=== PATIENT | male | born 1935 | race Caucasian/White ===

== ENCOUNTER 2016-03-04 14:44 | Emergency (ER) | payer OTHER ==
[2016-03-04 14:57] VITALS: RESP 14; TEMP 97.9
--- NOTE | 2016-03-04 15:06 | EDPHY ---
HPI/HX/ROS/PE/MDM Narrative: Chief complaint: Right foot wound VAC malfunction HPI: 80-year-old male with a add right foot wound debridement on the of this month by Dr. Bower with a wound VAC in place. Patient states that his son changed his socks this morning and there was some bleeding around the site. He is then noted a malfunction by the wound VAC. He believes that the a dressing may have been dislodged. Denies any increased pain. No fevers or chills. No change in redness. Is otherwise without complaint. ROS: 10 point Review of Systems is negative except as noted in the HPI. Physical exam: General: Awake, alert, no acute distress Lower extremity: He has no calf tenderness, calves are soft, bilateral feet are mildly dusky in appearance at which is baseline. Right foot plantar wound VAC dressing is in place. The wound is mildly blood cells. There is serosanguineous fluid in the wound VAC tubing. There is no significant surrounding erythema. Patient states he appearance has not changed since the last few days. Skin: No rash ED Course: Right foot dressing taken down. Has no infection the apparent. He a wet-to- dry dressing was put in place. He will be discharged with referral to the wound Care Center tomorrow for re-application of the wound VAC and further evaluation. General Time Seen by Provider: 03/04/16 14:56 Initial Vital Signs: Initial Vital Signs Temperature (C) 36.6 C 03/04/16 14:55 Heart Rate 94 03/04/16 14:55 Respiratory Rate 14 03/04/16 14:55 Blood Pressure 108/68 03/04/16 14:55 O2 Sat (%) 94 03/04/16 14:55 O2 Delivery Mode Room Air Allergies/Adverse Reactions: No Known Allergies Allergy (Verified 03/04/16 14:55) Home Medications: Medication Instructions Recorded Atorvastatin Calcium [Lipitor 20 20 mg PO HS 02/08/15 mg (*)] Digoxin [Lanoxin 0.125 mg] 0.125 mg PO EVERY OTHER DAY 02/08/15 Diltiazem HCl 90 mg PO DAILY 02/08/15 Lisinopril [Zestril 5 mg (*)] 5 mg PO DAILY 02/08/15 metFORMIN HCL [Glucophage 500 mg 500 mg PO DAILY@08 PRN 02/17/15 (*)] Acetaminophen [Tylenol 325mg (*)] 650 mg PO Q4 PRN #0 tab 02/19/15 Aspirin [Aspirin 81mg (*)] 81 mg PO HS #0 tab 02/19/15 Cholecalciferol Vit D3 [Vitamin D3 1,000 units PO BID 11/01/15 (*)] Digoxin [Lanoxin 125 mcg (RX)] 250 mcg PO EVERY OTHER DAY 11/01/15 Metoprolol Succinate Xr [Toprol Xl 50 mg PO DAILY 11/01/15 50 mg (*)] Butler-3 Fatty Acids [Fish Oil 1000 1,000 mg PO BID 11/01/15 mg (*)] Ferrous Sulfate [Ferrous Sulf 325 325 mg PO DAILY #0 tab 01/12/16 MG (*)] Gabapentin [Neurontin 300 MG (*)] 300 mg PO DAILY #0 cap 01/12/16 Insulin Glargine [Lantus 100 25 units SC DAILY #0 ml 01/12/16 UNITS/ML (*)] Insulin Lispro [humALOG LISPRO 100 0 unit SC ACHS #0 unit 01/12/16 units/ml (*)] Piperacillin Sodium/Tazobactam 3.375 gm IV Q6 #0 vial 01/12/16 [Zosyn 3.375 Gram Vial] Warfarin Sodium [Coumadin 5MG (*)] 5 mg PO DAILY AT 4PM #0 tab 01/12/16 oxyCODONE IR [Oxycodone Ir (*)] 5 - 10 mg PO Q4 PRN #0 tab 01/12/16 Departure - Departure Disposition: Home, Routine, Self-Care Clinical Impression: Open wound of right foot Condition: Good Instructions: Chronic Wound Care (ED) Additional Instructions: Follow up with the wound care center tomorrow for re-evaluation. Return to the emergency depart for increasing bleeding, fever, chills, spreading redness, or pain. Referrals: Angel Medrano MD [Primary Care Provider] - As per Instructions
[2016-03-04 16:44] VITALS: BP 109/78; PULSE 70; O2SAT 96
== END 2016-03-04 16:42 | disposition home or self-care (01) ==
LOC: EDUNIT#
DX: S91.301A Unspecified open wound, right foot, initial encounter (principal); Z79.01 Long term (current) use of anticoagulants; Z79.4 Long term (current) use of insulin; Z79.82 Long term (current) use of aspirin; X58.XXXA Exposure to other specified factors, initial encounter

== ENCOUNTER 2016-03-07 13:29 | Inpatient (IN) | payer OTHER ==
--- NOTE | 2016-03-07 14:04 | EDPHY ---
H & P Stated Complaint: R foot pain, 9 month hx of delayed healing break Time Seen by Provider: 03/07/16 13:42 HPI/ROS: CHIEF COMPLAINT: Inability to care for self HISTORY OF PRESENT ILLNESS: 80-year-old male with multiple comorbidities including diabetes, atrial fibrillation, chronic kidney disease, coronary artery disease, hypertension, hyperlipidemia, ongoing diabetic foot infection for which he is being followed by Dr. Pat De Los Santos and wound services, has a VAC dressing in place, in the ER via private vehicle over patient's and family's concerns over his ability to care for himself. He was seen in the emergency department 3 days ago after his VAC dressing fell off and was replaced. Case management was alert at that time that there were concerns about the family's ability to care for him and the patient's ability to care for himself and the possibility of transitioning the patient to a residential facility. The patient denies: Fever, chills, nausea, vomiting, chest pain, back pain, abdominal pain REVIEW OF SYSTEMS: A ten point review of systems was performed and is negative with the exception of the items mentioned in the HPI PAST MEDICAL & SURGICAL HISTORY: Diabetes. Atrial fibrillation. Chronic kidney disease. Coronary artery disease. Hypertension. Hyperlipidemia. Ongoing diabetic foot infection. SOCIAL HISTORY: Lives with his demented and his 2 children PHYSICAL EXAM (Prior to examination, patient consented to physical exam, hands were washed and my usual and customary physical exam procedures followed) 1) GENERAL: Well-developed, well-nourished, alert and oriented. Appears nontoxic . Answering questions appropriately. 2) HEAD: Normocephalic, atraumatic 3) HEENT: Pupils equal, round, reactive to light bilaterally. 4) NECK: Full range of motion, no meningeal signs. 5) LUNGS: Clear auscultation bilaterally, no wheezes, no rhonchi, no retractions. 6) HEART: Regular rate and rhythm, no murmur, no heave, no gallop. 7) ABDOMEN: No guarding, no rebound, no focal tenderness, 8) MUSCULOSKELETAL: right foot VAC dressing in place with good suction, no acute findings. 9) BACK: No CVA tenderness 10) SKIN: No rash, no petechiae. 11) Psychiatric: Patient is oriented X 3, there is no agitation. DIFFERENTIAL DIAGNOSIS: in no particular include but limited to failure to thrive, cellulitis, diabetic foot infection - Personal History Current Tetanus/Diphtheria Vaccine: Yes Current Tetanus Diphtheria and Acellular Pertussis (TDAP): Yes Tetanus Vaccine Date: 4-5 YEARS AGO - Medical/Surgical History Hx Asthma: No Hx Chronic Respiratory Disease: No Hx Diabetes: Yes Hx Cardiac Disease: Yes Hx Renal Disease: No Hx Cirrhosis: No Hx Alcoholism: No Hx HIV/AIDS: No Hx Splenectomy or Spleen Trauma: No Other PMH: HTN, CVA slight right sided weakness, IDDM, carotid endarterectomy, cholesterol, PPM, Afib, CAD, Peripheral neuropathy, falls, loss of balance and uses cane, [place], 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, - Social History Smoking Status: Former smoker Constitutional: Initial Vital Signs Temperature (C) 36.5 C 03/07/16 13:38 Heart Rate 75 03/07/16 13:38 Respiratory Rate 15 03/07/16 13:38 Blood Pressure 107/77 03/07/16 13:38 O2 Sat (%) 94 03/07/16 13:38 O2 Delivery Mode Room Air Allergies/Adverse Reactions: No Known Allergies Allergy (Verified 03/07/16 13:37) Home Medications: Medication Instructions Recorded Atorvastatin Calcium [Lipitor 20 20 mg PO HS 02/08/15 mg (*)] Digoxin [Lanoxin 0.125 mg] 0.125 mg PO EVERY OTHER DAY 02/08/15 Acetaminophen [Tylenol 325mg (*)] 650 mg PO Q4 PRN #0 tab 02/19/15 Aspirin [Aspirin 81mg (*)] 81 mg PO HS #0 tab 02/19/15 Cholecalciferol Vit D3 [Vitamin D3 1,000 units PO BID 11/01/15 (*)] Digoxin [Lanoxin 125 mcg (RX)] 250 mcg PO EVERY OTHER DAY 11/01/15 Metoprolol Succinate Xr [Toprol Xl 50 mg PO DAILY 11/01/15 50 mg (*)] St[place]al-3 Fatty Acids [Fish Oil 1000 1,000 mg PO BID 11/01/15 mg (*)] Ferrous Sulfate [Ferrous Sulf 325 325 mg PO DAILY #0 tab 01/12/16 MG (*)] Insulin Glargine [Lantus 100 25 units SC DAILY #0 ml 12/01/16 UNITS/ML (*)] Insulin Lispro [humALOG LISPRO 100 0 unit SC ACHS #0 unit 01/12/16 units/ml (*)] Diltiazem Sr [Cardizem Sr] 1 cap PO DAILY 03/07/16 Gabapentin [Gabapentin] 200 mg PO BIDMEAL 03/07/16 Gabapentin [Neurontin 300 MG (*)] 300 mg PO HS 03/07/16 Lisinopril [Zestril 2.5 mg (*)] 2.5 mg PO DAILY 03/07/16 Metformin HCl [Metformin HCl ER] 500 mg PO DAILY PRN 03/07/16 WARFARIN SODIUM [WARFARIN SODIUM] 6 mg PO HS 03/07/16 Medical Decision Making ED Course/Re-evaluation: 2:10 p.m.: Discussed case Dr. Jalen Viera in ER. Old medical records reviewed. Case management is consulting as well as the patient family expressed concerns over their ability to care for the patient his ability to care for himself in a home where he has to care for his demented as well. He has no complaints of acute pain, no flu-like symptoms, no fever no chills. 2:20 p.m.: Phone consultation with hospitalist Latoya, admit to Dr. Onofre. I will contact Dr. Pat De Los Santos as well 2:28 p.m.: Phone consultation with Dr. Pat De Los Santos who will consult 3:27 p.m.: Patient's chemistry shows a potassium of 6.0, sodium of 124. In speaking with the nurse this was a challenging blood draw And a pediatric tube was used. I recommended rechecking her chemistry prior to initiating therapy for his hyperkalemia. 4:38 pm: Spoke with radiologist Dr. Victor Manuel Melendez to look to the patient's right foot x-ray and was noted to have subcutaneous air distally and there concerns over possible necrotizing fasciitis. I have paged Dr. Pat De Los Santos at this time 4:42 p.m.: Spoke with Dr. Pat De Los Santos to convey these results who will evaluate patient 5:01 p.m.: Patient's laboratory studies were redrawn . Spoke with the nurse and was informed that the 2nd blood draw was challenging as well and may have been accidentally diluted. I reviewed these results which show multiple aberrancies not consistent with the 1st blood draw in such a short time period without intervention. At this time I will hold on treating any specific laboratory abnormalities as the complete reliability of these chemistry values is not completely known at this time. Discussed this with Dr Taylor in ER. - Data Points Laboratory Results: Laboratory Results 03/07/16 14:50 03/07/16 14:50 03/07/16 14:50 WBC 19.37 H 10^3/uL (3.80-9.50) RBC 4.65 10^6/uL (4.40-6.38) Hgb 12.6 L g/dL (13.7-17.5) Hct 37.5 L % (40.0-51.0) MCV 80.6 L fL (81.5-99.8) MCH 27.1 L pg (27.9-34.1) MCHC 33.6 g/dL (32.4-36.7) RDW 14.6 % (11.5-15.2) Plt Count 245 10^3/uL (150-400) MPV 10.4 fL (8.7-11.7) Neut % (Auto) Not Reported Lymph % (Auto) Not Reported [place] % (Auto) Not Reported Eos % (Auto) Not Reported Baso % (Auto) Not Reported Nucleat RBC Rel Count 0.0 % (0.0-0.2) Absolute Neuts (auto) Not Reported Absolute Lymphs (auto) Not Reported Absolute Monos (auto) Not Reported Absolute Eos (auto) Not Reported Absolute Basos (auto) Not Reported Absolute Nucleated RBC 0.00 10^3/uL (0-0.01) Immature Gran % Not Reported Seg Neutrophils % 79 % Band Neutrophils % 8 % Lymphocytes % 7 % Monocytes % 6 % Immature Gran # Not Reported Absolute Seg Neuts 15.30 H 10^/uL (1.70-6.50) Absolute Band Neuts 1.55 H 10^3/uL (0.00-0.70) Absolute Lymphocytes 1.36 10^3/uL (1.00-3.00) Absolute Monocytes 1.16 H 10^3/uL (0.30-0.80) RBC/WBC/PLT Morphology NORMAL (NORMAL) Toxic Granulation PRESENT H Platelet Estimate ADEQUATE (ADEQ) Sodium 124 L mEq/L (134-144) Potassium 6.0 H mEq/L (3.5-5.2) Chloride 91 L mEq/L (97-110) Carbon Dioxide 24 mEq/l (22-31) Anion Gap 9 mEq/L (8-16) BUN 33 H mg/dL (7-23) Creatinine 1.3 mg/dL (0.7-1.3) Estimated GFR 53 Glucose 244 H mg/dL (70-100) Calcium 8.2 L mg/dL (8.5-10.4) Specimen Hemolysis 103 Medications Given: Discontinued Medications Sodium Chloride (Ns) 500 mls @ 1,500 mls/hr IV ONCE ONE Stop: 03/07/16 15:12 Last Admin: 03/07/16 14:54 Dose: 500 mls Departure - Departure Disposition: [facility] Inpatient Acute Clinical Impression: Right foot infection Failure to thrive Qualifiers: Failure to thrive age range: in adult Qualifier Code: (R62.7) Adult failure to thrive
[2016-03-07] MEDS ORDERED: ONDANSETRON DISINTEGRATING 4 MG TAB PO PRN (14:43)
[2016-03-07] MEDS ORDERED: ONDANSETRON 4 MG/2 ML VIAL IVP PRN (14:43)
[2016-03-07] MEDS ORDERED: ACETAMINOPHEN 325 MG TAB PO PRN ×2 (14:43→16:21)
[2016-03-07] MEDS ORDERED: NS 500 ML IV ONE (14:53)
[2016-03-07 14:59] LABS: ADD DIFF? YES; ADD MORPH? NO; ADD SCAN? NO; ATYPICAL LYMPHOCYTE FLAG 30 (0-99); FRAGMENT RBC FLAG 0 (0-99); HEMATOCRIT 37.5 % (40.0-51.0); HEMOGLOBIN 12.6 g/dL (13.7-17.5); LEFT SHIFT FLG 30 (0-99); LIPEMIA HEMOLYSIS FLAG 80 (0-99); MEAN CELL HEMOGLOBIN 27.1 pg (27.9-34.1); MEAN CELL HEMOGLOBIN CONCENTR. 33.6 g/dL (32.4-36.7); MEAN CELL VOLUME 80.6 fL (81.5-99.8); MEAN PLATELET VOLUME 10.4 fL (8.7-11.7); PLATELET CLUMPS FLAG 70 (0-99); PLATELET COUNT 245 10^3/uL (150-400); RED BLOOD CELL COUNT 4.65 10^6/uL (4.40-6.38); RED CELL DISTRIBUTION WIDTH 14.6 % (11.5-15.2)
--- NOTE | 2016-03-07 15:07 | CPEKG ---
Heart Rate: 93 RR Interval: 645 QRSD Interval: 100 QT Interval: 384 QTC Interval: 478 QRS [place]: 46 EKG Severity - ABNORMAL ECG - EKG Impression: AFIB/FLUTTER EKG Impression: LOW VOLTAGE IN FRONTAL LEADS EKG Impression: NONSPECIFIC REPOL ABNORMALITY, DIFFUSE LEADS EKG Impression: PROLONGED QT INTERVAL Electronically Signed By: Orlando Panchal 09-Mar-2016 19:32:33
[2016-03-07 15:17] LABS: ANION GAP 9 mEq/L (8-16); CALCIUM 8.2 mg/dL (8.5-10.4); CARBON DIOXIDE 24 mEq/l (22-31); CHLORIDE 91 mEq/L (97-110); CREATININE 1.3 mg/dL (0.7-1.3); GLOMERULAR FILTRATION RATE 53; GLUCOSE 244 mg/dL (70-100); SODIUM 124 mEq/L (134-144); SPECIMEN HEMOLYSIS 103
[2016-03-07 15:34] LABS: TOXIC GRANULATION PRESENT
[2016-03-07 15:37] LABS: PLATELET ESTIMATE ADEQUATE (ADEQ)
[2016-03-07 16:33] LABS: SPECIMEN HEMOLYSIS 167
--- NOTE | 2016-03-07 17:00 | DX ---
Right foot, 4 views. March 07, 2016 History: Cellulitis. Atherosclerosis. Comparison examination: December 28, 2015. From prior study, there has been development of dorsal subcutaneous emphysema and soft tissue swellin g, suggesting the possibility of necrotizing fasciitis versus iatrogenic etiology. Additionally, prog ressive joint space narrowing of the first metatarsophalangeal joint is noted, potentially related to septic arthritis. An obliquely oriented fracture extends through the lateral aspect of the proximal phalanx of the great toe. Progressive bone resorption the first metatarsal head medially is compatibl e with osteomyelitis. Extensive diabetic vascular calcifications are present. No other fracture identified. Impression: 1. Interval development of dorsal subcutaneous air over the right forefoot and midfoot, necrotizing f asciitis versus iatrogenic etiology. Associated dorsal soft tissue swelling. 2. Progressive joint space narrowing with pathologic fracture at the first metatarsophalangeal joint, possible septic arthritis. There is also progressive bone resorption of the first metatarsal tarsal head medially. Results conveyed to Dr. Pat Bower and Rui Wright PA-C.
--- NOTE | 2016-03-07 17:03 | GHP ---
[f rep st] HISTORY AND PHYSICAL DATE OF ADMISSION: 03/07/2016 CHIEF COMPLAINT: Inability to care for himself. HISTORY OF PRESENT ILLNESS: The patient is a 80-year-old male who has chronic multiple medical problems presented to the emergency room today with the inability to care for himself and being concerned about his medical problems. The patient suffers from ongoing diabetic foot infection which he is followed by Dr. De Los Santos in the outpatient setting as well as wound services and VAC wound dressing. He denies any fevers. Denies any chills. Denies any nausea, vomiting or diarrhea. Denies any chest pain, dyspnea or shortness of breath. He does complain of some weakness and decreased appetite. PAST MEDICAL HISTORY: 1. Diabetic foot infection with gangrene. 2. Hyponatremia. 3. Sepsis. 4. Leukocytosis. 5. Normocytic anemia. 6. Diabetes. 7. Persistent atrial fibrillation. 8. Acute on chronic kidney injury. 9. Hypertension. 10. Hyperlipidemia. 11. Coronary artery disease. 12. Congestive heart failure. 13. History of CVA. PAST SURGICAL INTERVENTION: 1. Coronary stenting. 2. Multiple surgical interventions for his diabetic foot infection. REVIEW OF SYSTEMS: Comprehensive review of systems is negative other than noted in the HPI. SOCIAL HISTORY: The patient lives with his who is demented at baseline. He has 2 children. He denies any tobacco. He states that he used to be a former smoker. He is a retired [employer] employee. He rarely drinks any alcohol. FAMILY HISTORY: Not pertinent for any positives. PHYSICAL EXAMINATION: GENERAL: The patient is nourished, alert and oriented. VITAL SIGNS: Afebrile at 36.5, pulse is 75, respiratory rate is 15, blood pressure is 135/80, saturating 97% on room air. HEENT: Normocephalic, atraumatic. Mucosal membranes are moist. Pupils equal, round, reactive to light. LUNGS: Clear to auscultation bilaterally with no rhonchi or wheezes noted. CARDIOVASCULAR: No murmur. Noting irregular rate and rhythm. ABDOMEN : Bowel sounds are positive, soft. There is no guarding or rigidity noted. MUSCULOSKELETAL: There is a right foot wound VAC dressing in place with appears good suction. EXTREMITIES: Are otherwise within normal limits. No clubbing or cyanosis noted. SKIN: Without rashes or lesions identified. ALLERGIES: None. HOME MEDICATIONS: Have not been completed by the [facility] pharmacy yet; however , after his last admission he was on Tylenol, aspirin, Lipitor, vitamin D, digoxin, diltiazem, iron, Neurontin, Lantus, lisinopril, Toprol-XL, fish oil, Zosyn, Coumadin, Glucophage, oxycodone IR. LABORATORY EVALUATION: White count is 19.3, hemoglobin 12.6, hematocrit of 37.5. Sodium is 124 with a potassium of 6 and a chloride of 91. BUN is 33, glucose is 244 and calcium is 8.2. RADIOLOGICAL STUDIES: Foot x-ray is pending at the time of this dictation. EKG notes abnormal EKG with atrial fibrillation. ASSESSMENT AND PLAN: The patient is a 80-year-old male who presented to the emergency room by his family for failure to thrive. He is being admitted and treated for: 1. Failure to thrive. We will continue supportive management with therapies during this hospitalization and potentially find the patient retirement facility assistance and help if appropriate. 2. Hyperkalemia. The patient has repeat laboratory evaluations pending at the time of this dictation. I am told that the blood draw was difficult and a pediatric tube was used. There may be some hemolysis happening. We will await further results and initiate hyperkalemia therapy if indicated. 3. History of wet gangrene with wound VAC. The patient has been followed by Infectious Disease as well as Dr. De Los Santos in the outpatient setting. We will continue supportive inpatient management of his wound VAC with further recommendations to be made. Dr. De Los Santos has been notified of the patient's admission. 4. Hyponatremia. This is a chronic ongoing problem for the patient; however, he does appear to be dehydrated at the time of admission. 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 We will hydrate him intermittently during this hospital course and follow along with his sodium level. Again, we are waiting for repeat evaluation during this dictation. 5. Leukocytosis. This is increased since his last disposition. We will continue to follow this and evaluate for further infectious process. 6. Anemia. I suspect his laboratory evaluations are lower than representing, as the patient does appear to be dehydrated. We will recheck his labs in the morning and further action will be taken as needed. 7. Acute on chronic kidney disease. Again, we will hydrate the patient and monitor his renal function during this hospital course. 8. History of chronic systolic heart failure. This appears to be stable with no signs of exacerbation at the time of admission. 9. History of atrial fibrillation. He does have a PPM in place. Anticoagulation has not been evaluated. We will order laboratory evaluation to further evaluate his chronic anticoagulation. He is currently rate controlled and we will continue his home medications as soon as they are evaluated and reconciled by [facility] pharmacist. 10. History of hypertension. Again, the patient is normotensive at this time. Further decisions will be made during his hospital course. 11. Diabetes mellitus type 2. We will initiate sliding scale insulin. The patient is normally on metformin. DISPOSITION: The patient is being admitted to inpatient status as I anticipate he will require greater than 48 hours to sort out all of his medical problems and establish further needs. I will discuss the patient's care with Dr. Jaime Onofre. Further action will be taken as needed during the patient's hospitalization. /[id number]/MODL MTDD
--- NOTE | 2016-03-07 17:36 | PCMIDPN ---
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 s/p 6 weeks Zosyn, stopped 2015. Today wound looks more filled than the last exam but now there is surrounding cellulitis with associated crepitus concerning for necrotizing infection. --will start a bit broader coverage with vancomycin and ertapenem to include risk for ESBL and MRSA --patient will need surgical intervention, likely BKA, but patient needs medical stabilization prior --obtain blood cultures to rule out bacteremia --wound cultures not likely helpful at this point as patient is likely to have BKA Case discussed with Dr. Bower and Dr. Onofre X-ray of the right foot was personally reviewed by me which shows calcified vessels, and air on the dorsum of the foot Subjective: 80-year-old male well known to me with history of diabetes, peripheral vascular disease who I helped manage severe diabetic right foot infection status post extensive debridement approximately 2 months ago. Patient with exposed bone in the wound postoperatively and patient was treated with 6 weeks of IV antibiotics for osteomyelitis. Although the wound has continued to improve, the last day patient with increased malaise, chills and today was unable to get out of bed therefore his encouraged him to present to the emergency room. Denies respiratory and GI symptoms. Patient has minimal symptoms associated with his right foot but previously has been fairly asymptomatic due to severe peripheral neuropathy. Poor p.o. intake Objective: Vital Signs Temp Pulse Resp BP Pulse Ox 36.5 C 89 16 135/80 H 97 03/07/16 13:38 03/07/16 15:48 03/07/16 15:48 03/07/16 15:48 03/07/16 15:48 Laboratory Results 03/07/16 15:40 - Physical Exam General Appearance: alert, thin, non-toxic EENT: pale conjunctiva, dry mucous membranes, poor dentition, No scleral icterus Neck: supple Cardiac/Chest: regular rate, rhythm Extremities: erythema (Large open wound), other (right medial wound on foot approx 10 x 5.0 x 3 cm filled in with granulation tissue but wound is surrounded by erythema and significant crepitus is detected on the dorsum of the foot. No tenderness to palpation) Abdomen: non-tender, soft Skin: warm/dry, pallor, No rash Neuro/Psych: alert, normal mood/affect, oriented x 3, No motor weakness - Time Spent With Patient Time Spent with Patient: greater than 35 minutes Time Spent with Patient: Greater than 35 minutes spent on this patients care, greater than 50% of time spent counseling, educating, and coordinating care regarding the above mentioned plan. ICD10 Worksheet Patient Problems: Problems Problem Status Diagnosed CAD (coronary artery disease) Acute CVA (cerebral vascular accident) Acute Diabetes Acute Failure to thrive Acute Hypertension Acute Right foot infection Acute Acute kidney injury Acute Congestive heart failure (CHF) Acute Hyperkalemia Acute Hyponatremia Acute Malaise and fatigue Acute Severe sepsis Acute Supratherapeutic INR Acute Transient hypotension Acute
[2016-03-07 18:36] LABS: INR 2.69 (0.83-1.16); PROTIME(PATIENT) 28.9 SEC (12.0-15.0)
[2016-03-07 18:37] LABS: APTT 47.2 SEC (23.0-38.0)
[2016-03-07] MEDS ORDERED: WARFARIN SODIUM 3 MG TAB PO SCH (19:30)
[2016-03-07] MEDS: ERTAPENEM 1 GM in NS 100 ML IV SCH (19:42)
[2016-03-07] MEDS: VANCOMYCIN HCL/NORMAL SALINE 250 ML IV SCH (20:15)
[2016-03-07] MEDS: ASPIRIN 81 MG CHEWABLE TAB PO SCH (21:01)
[2016-03-07] MEDS: GABAPENTIN 100 MG CAP PO SCH (21:01)
[2016-03-07] MEDS: OMEGA-3 FATTY ACIDS 1,000 MG CAP PO SCH (21:01)
[2016-03-07] MEDS: ATORVASTATIN CALCIUM 20 MG TAB PO SCH (21:01)
[2016-03-07] MEDS: GABAPENTIN 300 MG CAP PO SCH (21:01)
[2016-03-07] MEDS: CHOLECALCIFEROL VIT D3 1,000 UNITS TAB PO SCH (21:01)
[2016-03-07 21:05] LABS: ALBUMIN 1.9 g/dL (3.5-5.0); ANION GAP 6 mEq/L (8-16); CALCIUM 7.5 mg/dL (8.5-10.4); CARBON DIOXIDE 24 mEq/l (22-31); CHLORIDE 95 mEq/L (97-110); CREATININE 1.2 mg/dL (0.7-1.3); GLOMERULAR FILTRATION RATE 59; GLUCOSE 208 mg/dL (70-100); MAGNESIUM 1.6 mg/dL (1.6-2.3); POTASSIUM 5.2 mEq/L (3.5-5.2); SODIUM 125 mEq/L (134-144)
--- NOTE | 2016-03-08 03:50 | GCON ---
[f rep st] CONSULTATION DATE OF CONSULTATION: 03/07/2016 CHIEF COMPLAINT: Failure to thrive. Right diabetic foot ulcer. HISTORY OF PRESENT ILLNESS: The patient is a 80-year-old man who is status post debridement of skin and soft tissue to the level of the fascia in the operating room by Dr. De Los Santos. At the time of surger y, the wound measured 15 x 5 x 3 cm on the medial aspect of his right foot. The wound tunneled anter iorly to the plantar fascia. He was treated with wound VAC therapy. During his previous hospital ad mission, he underwent angioplasty to improve peripheral blood flow. He was discharged home to [facility] and then to home with home care for wound VAC changes. [facility] with a chief complaint of unable to care for himself, weakness, and falls. He denies any worsening symptoms with the wound including pain, redness, fevers, chills, or difficulty with VAC changes. Hi s daughter, however, reports that he has fallen several times since returning home. PAST MEDICAL HISTORY: AFib, CAD, CHF, CVA, type 2 diabetes, hypertension, hyperlipidemia, chronic ki dney disease, peripheral vascular disease, carotid artery disease. PAST SURGICAL HISTORY: Stent placement, operative debridement as mentioned above. ALLERGIES: No known drug allergies. SOCIAL HISTORY: He is . His suffers from Alzheimer's. His daughter recently moved here from [place]. She is involved in his care. He does not use tobacco. He is a former smoker. He r eports rare alcohol use. FAMILY HISTORY: Significant for peripheral vascular disease. PHYSICAL EXAMINATION: GENERAL: Well-developed, well-nourished man, no acute distress. Does not cheli ear acutely ill. HEENT: Normocephalic, atraumatic. No hearing deficits. Pupils equal and round. No scleral icterus. Mucous membranes moist. Glasses. NECK: Trachea midline. LUNGS: No increased work of breathing. CARDIOVASCULAR: Trace peripheral edema left lower extremity. 1+ peripheral omer ma right lower extremity. SKIN: The wound on the medial aspect of the foot surprisingly appears brayan te healthy with granulation tissue in the base. There is a small area of bone exposed in the distal aspect consistent with sesamoid versus first metatarsal head. The plantar fascia is exposed and ther e is a small amount of tunneling laterally on the plantar fascia. There is no purulent drainage. He is nontender to palpation. In addition, there is an unstageable pressure ulcer at the lateral aspec t of his right foot at the base of the fifth metatarsal head, as well as more proximally in the mid m etatarsal region. Again, these are unstageable with overlying eschar. I am concerned, however, that these wounds are very close to bone. His right foot is erythematous and slightly edematous. Unable to palpate DP or PT pulses. PSYCH: Mood and affect normal. IMPRESSION AND PLAN: The patient is a 80-year-old man with peripheral vascular disease and diabetic foot ulcer status post debridement in the operating room by Dr. De Los Santos. [facility], however, I feel that he likely has a component of right lowe r extremity cellulitis. In the ER, he had leukocytosis of 19.37. I discussed with the patient and f david that I am very concerned about his right foot including the development of worsening unstageabl e ulcers to the lateral foot. We will obtain an x-ray to determine if underlying bone may be involve d. He will be admitted to the hospital service with consultation by Infectious Disease for IV antibi otic therapy. He will be additionally seen by Dr. Pat De Los Santos. Case was discussed with Dr. De Los Santos wh o agrees with the above impression and plan. He may require further operative debridement. Unfortun ately, in his case, if there is evidence of bone infection, he may require below-knee amputation. We will continue to follow through this hospital stay. Thank you for the consultation. /[id number]/MODL
[2016-03-08 05:02] LABS: ADD DIFF? YES; ADD MORPH? NO; ADD SCAN? NO; ATYPICAL LYMPHOCYTE FLAG 20 (0-99); FRAGMENT RBC FLAG 0 (0-99); HEMATOCRIT 28.1 % (40.0-51.0); HEMOGLOBIN 9.7 g/dL (13.7-17.5); LEFT SHIFT FLG 30 (0-99); LIPEMIA HEMOLYSIS FLAG 90 (0-99); MEAN CELL HEMOGLOBIN 28.2 pg (27.9-34.1); MEAN CELL HEMOGLOBIN CONCENTR. 34.5 g/dL (32.4-36.7); MEAN CELL VOLUME 81.7 fL (81.5-99.8); PLATELET CLUMPS FLAG 0 (0-99); PLATELET COUNT 205 10^3/uL (150-400); RED BLOOD CELL COUNT 3.44 10^6/uL (4.40-6.38); RED CELL DISTRIBUTION WIDTH 14.6 % (11.5-15.2)
[2016-03-08 05:20] LABS: ALANINE AMINOTRANSFERASE 48 IU/L (21-72); ALBUMIN 1.8 g/dL (3.5-5.0); ALKALINE PHOSPHATASE 196 IU/L (38-126); ANION GAP 6 mEq/L (8-16); ASPARTATE AMINOTRANSFERASE 36 IU/L (17-59); BILIRUBIN,TOTAL 0.9 mg/dL (0.1-1.4); CALCIUM 7.3 mg/dL (8.5-10.4); CARBON DIOXIDE 24 mEq/l (22-31); CHLORIDE 97 mEq/L (97-110); CREATININE 1.1 mg/dL (0.7-1.3); GLOMERULAR FILTRATION RATE > 60; GLUCOSE 164 mg/dL (70-100); SODIUM 127 mEq/L (134-144); TOTAL PROTEIN 5.3 g/dL (6.3-8.2)
[2016-03-08 05:29] LABS: PLATELET ESTIMATE ADEQUATE (ADEQ)
[2016-03-08] MEDS: ERTAPENEM 1 GM in NS 100 ML IV SCH (08:22)
[2016-03-08] MEDS: METOPROLOL SUCCINATE XR 50 MG TAB PO SCH (08:28)
[2016-03-08] MEDS: GABAPENTIN 100 MG CAP PO SCH ×2 (08:28→17:40)
[2016-03-08] MEDS: FERROUS SULFATE 325 MG TAB PO SCH (08:28)
[2016-03-08] MEDS: OMEGA-3 FATTY ACIDS 1,000 MG CAP PO SCH ×2 (08:28→20:30)
[2016-03-08] MEDS: CHOLECALCIFEROL VIT D3 1,000 UNITS TAB PO SCH ×2 (08:29→20:30)
--- NOTE | 2016-03-08 08:29 | SOAPPROG ---
SOAP Progress Note Assessment/Plan: Assessment: 80 yo with severe diabetic foot infection. Was improving. Was readmitted due to failure to thrive. Found to be hyponatremic, hypokalemic, hyperglycemic with WBC in 20s. Air on x ray. Foot is clinically much worse. Air palpable on exam. Leg is warm. Erythema extends to ankle. Purulent drainage and foul odor that was not present last week Booked for OR R BKA likely later today Risks and benefits discussed Will give FFP prior to OR Plan: 03/08/16 08:19 Objective: Vital Signs Temp Pulse Resp BP Pulse Ox 37.4 C 74 16 99/44 L 98 03/08/16 07:32 03/08/16 07:32 03/08/16 07:32 03/08/16 07:32 03/08/16 07:32 Laboratory Results 03/08/16 04:55 03/08/16 04:55 03/07/16 03/08/16 03/09/16 05:59 05:59 05:59 Intake Total 1510 Output Total 230 Balance 1280 PT 28.9 SEC (12.0-15.0) H 03/07/16 18:00 INR 2.69 (0.83-1.16) H 03/07/16 18:00 ICD10 Worksheet Patient Problems: Problems Problem Status Diagnosed CAD (coronary artery disease) Acute CVA (cerebral vascular accident) Acute Diabetes Acute Failure to thrive Acute Hypertension Acute Right foot infection Acute Acute kidney injury Acute Congestive heart failure (CHF) Acute Hyperkalemia Acute Hyponatremia Acute Malaise and fatigue Acute Severe sepsis Acute Supratherapeutic INR Acute Transient hypotension Acute
[2016-03-08] MEDS: DILTIAZEM SR 90 MG CAP PO SCH ×2 (08:30→08:34)
[2016-03-08] MEDS: INSULIN GLARGINE 100 UNITS/ML SYRINGE SC SCH (08:30)
[2016-03-08] MEDS ORDERED: LISINOPRIL 2.5 MG TAB PO SCH (09:00)
[2016-03-08] MEDS ORDERED: ENOXAPARIN 30 MG/0.3 ML SYR SC SCH (09:00)
--- NOTE | 2016-03-08 10:41 | WOCRNPDOC ---
WOCRN Advanced Assessment Note - Skin Integrity Problem, Advanced Assess Bilateral Buttock Incont Assoc Dermatitis Dressing Type: Allevyn Life Integumentary Issue Intervention: Dressing Removed, Lotion/Cream Applied ( dimethicone) Eusebio Wound Tissue: Blanching, Erythema Eusebio Wound Swelling: None Wound Bed Color: [place], Yellow Site Measurement - Head-to-Toe Length X Width X Depth (cm): 0.4x0.4x0.2 Skin Integrity Problem Comment: Small open friction related wound on left buttock, surrounded by scattered mild IAD eusebio anal to sacral. Wound care will not follow. No pressure injuries noted. Please reconsult prn. Dior HUBBARD in room for care.
--- NOTE | 2016-03-08 13:44 | HOSPPROG ---
Hospitalist Progress Note Assessment/Plan: # acute worsening of chronic right lower extremity diabetic foot wound- patient admitted overnight with failure to thrive- leukocytosis of 19 foot x-ray( personally reviewed and interpreted) shows subcutaneous air findings consistent with deep wound blood cultures drawn and no growth today - discussed case with Dr. Bower she will take to the operating room for surgical intervention today - continue IV antibiotic # atrial fibrillation- currently rate controlled in the 70s- INR 2.69 - will give FFP to reverse anticoagulation for operating room - continue home meds- digoxin - check a digoxin level # acute on chronic kidney injury- creatinine 1.3-> 1.1 with IV fluids overnight- oxygen saturations 100% on 2 L # diabetes mellitus- blood sugars 164-244- holding metformin - continue glargine -cover with sliding scale insulin # chronic hyponatremia- sodium 127 this morning - baseline continue to monitor # hyperkalemia- potassium 6 at presentation- improved with IV fluid resuscitation # diet NPO for operating room # prophylaxis- no heparin secondary to the operating room # disposition- greater than 2 midnights as requiring surgical debridement for worsening diabetic foot wound I have discussed the case with Dr. Bower she will treat with FFP prior to OR to reverse patient's INR Subjective: tired Objective: Vital Signs Temp Pulse Resp BP Pulse Ox 37.4 C 76 24 H 89/56 L 100 03/08/16 07:32 03/08/16 12:00 03/08/16 12:00 03/08/16 12:00 03/08/16 12:00 Laboratory Results 03/08/16 04:55 03/08/16 04:55 03/07/16 03/08/16 03/09/16 05:59 05:59 05:59 Intake Total 1510 Output Total 230 Balance 1280 PT 28.9 SEC (12.0-15.0) H 03/07/16 18:00 INR 2.69 (0.83-1.16) H 03/07/16 18:00 - Physical Exam Constitutional: chronically ill appearing Eyes: anicteric sclera Ears, Nose, Mouth, Throat: dry mucous membranes Cardiovascular: systolic murmur, irregularly irregular Respiratory: no respiratory distress, no rales or rhonchi Gastrointestinal: normoactive bowel sounds, soft, non-tender abdomen Genitourinary: no bladder fullness Skin: warm, normal color Musculoskeletal: No asymmetric calves Neurologic: AAOx3 Psychiatric: interacting appropriately, not anxious Lymph, Heme, Immunologic: no cervical LAD ICD10 Worksheet Patient Problems: Problems Problem Status Diagnosed CAD (coronary artery disease) Acute CVA (cerebral vascular accident) Acute Diabetes Acute Failure to thrive Acute Hypertension Acute Right foot infection Acute Acute kidney injury Acute Congestive heart failure (CHF) Acute Hyperkalemia Acute Hyponatremia Acute Malaise and fatigue Acute Severe sepsis Acute Supratherapeutic INR Acute Transient hypotension Acute
[2016-03-08] MEDS ORDERED: D50W 25 GM/50 ML SYR IVP PRN (13:48)
[2016-03-08] MEDS ORDERED: NS 1,000 ML IV SCH (14:00)
--- NOTE | 2016-03-08 14:13 | GCON ---
[f rep st] CONSULTATION CRITICAL CARE CONSULTATION DATE OF CONSULTATION: 03/08/2016 HISTORY OF PRESENT ILLNESS: The patient is a 80-year-old male with a history of diabetes and nonheal ing ulcers of his foot, who has been undergoing occasional debridements and antibiotics, and is unabl e to improve. He underwent recent angioplasty of that lower extremity and was admitted yesterday wit h basically failure to thrive and a nonhealing wound. He was evaluated by Dr. De Los Santos, who has been fo llowing him serially, and saw him just last week, and the wound appears to be getting worse. He is s cheduled for a below-knee amputation today. REVIEW OF SYSTEMS: He was otherwise negative. PAST MEDICAL HISTORY: Includes: 1. Previous sepsis. 2. Anemia. 3. Atrial fibrillation. 4. Chronic kidney disease. 5. Hypertension. 6. Hyperlipidemia. 7. Coronary artery disease. 8. CHF. 9. Remote stroke. SOCIAL HISTORY: Remote smoker. Drinks occasional alcohol but no IV drug use. FAMILY HISTORY: Noncontributory at this time. MEDICATIONS: Include Tylenol, aspirin, Lipitor, vitamin D, digoxin, diltiazem, ertapenem, iron sulfa te, Neurontin, Lantus, lisinopril, metoprolol, Zofran, vancomycin. PHYSICAL EXAMINATION: VITAL SIGNS: Afebrile. Blood pressure 89/56 with map of 67, heart rate 76, r espirations 24, oxygen saturation 100% on 2 L. GENERAL: He was somewhat withdrawn but cooperative a nd alert. Not using accessory muscles for breathing. HEENT: Pupils equally round and reactive to l ight. Nonicteric and noninjected. Mucous membranes are moist without erythema or exudate. NECK: S upple, without adenopathy or jugular venous distention. LUNGS: Breath sounds were clear to ausculta tion bilaterally without wheezes, rubs or rales. HEART: Irregular rhythm but no obvious murmurs. A BDOMEN: Soft, nontender, nondistended, without hepatosplenomegaly. EXTREMITIES: Show no clubbing, cyanosis or edema. His foot ulcer dressing had just been changed. It was clean and dry. I chose no t to examine this today other than to note that his toes were not cyanotic. NEUROLOGIC: Nonfocal. Normal cranial nerves and deep tendon reflexes. SKIN: Warm and dry without evidence of rash. OBJECTIVE DATA: Includes white count 20, hematocrit 28, hemoglobin 9.7, platelets 205, INR 2.69. So dium 127, potassium 5.0, chloride 97, bicarb 24, BUN 26, creatinine 1.1, glucose 164. LFTs were norm al except an alkaline phosphatase of 196, albumin 1.8. ASSESSMENT/PLAN: 1. Nonhealing wound with diabetes and peripheral arterial disease. He will end up getting a below-k nee amputation today and anticipate that he should do well with that surgery. It is unfortunate that he has to have that. He seems to be well covered with the current antibiotics. 2. Hyponatremia. I am led to believe this is a chronic problem. I assume he has had a workup in e past. Difficulties with secretion of inappropriate antidiuretic hormone. If he is stable at 127, we should keep him that way with fluid restriction and be careful of fluid resuscitation. 3. Atrial fibrillation. This is also a chronic problem. He is rate controlled on his current medic ations. 4. Elevated INR. Prior to surgery, he will get fresh frozen plasma. This should be adequate for linn rgical intervention. /[id number]/MODL
--- NOTE | 2016-03-08 14:38 | PCMIDPN ---
Assessment/Plan: Assessment/Plan: * Severe right diabetic foot infection: Clinical exam with crepitus and x-ray with gas consistent with polymicrobial infection including gas-forming organisms. Agree with plans for right-sided BKA as definitive management. Continue vancomycin and ertapenem. Follow-up blood cultures as available which are currently no growth. 03/08/16 14:34 Subjective: Patient complains of pain in right foot. Overall feels poorly. Objective: Vital Signs Temp Pulse Resp BP Pulse Ox 37.4 C 76 24 H 89/56 L 100 03/08/16 07:32 03/08/16 12:00 03/08/16 12:00 03/08/16 12:00 03/08/16 12:00 Laboratory Results 03/08/16 04:55 03/08/16 04:55 03/07/16 03/08/16 03/09/16 05:59 05:59 05:59 Intake Total 1510 Output Total 230 Balance 1280 Vancomycin # 1 Ertapenem # 2 Blood cultures x2 pending Plain film of foot reviewed showing gas in soft tissues dorsally - Physical Exam General Appearance: alert, no apparent distress EENT: dry mucous membranes, No scleral icterus, No conjunctival petechiae Respiratory: lungs clear, No respiratory distress Cardiac/Chest: irregularly irregular Extremities: inflammation (Right foot with large wound extending medially with distal portion showing necrosis; erythema, tenderness and crepitus over dorsal aspect of foot with some extension of erythema to lower leg; no bullae) Abdomen: non-tender, No distended Skin: No embolic lesions ICD10 Worksheet Patient Problems: Problems Problem Status Diagnosed CAD (coronary artery disease) Acute CVA (cerebral vascular accident) Acute Diabetes Acute Failure to thrive Acute Hypertension Acute Right foot infection Acute Acute kidney injury Acute Congestive heart failure (CHF) Acute Hyperkalemia Acute Hyponatremia Acute Malaise and fatigue Acute Severe sepsis Acute Supratherapeutic INR Acute Transient hypotension Acute
[2016-03-08] MEDS ORDERED: BUPIVACAINE 0.5% 30 ML SDV ONE (15:18)
[2016-03-08] MEDS: INSULIN LISPRO 100 UNIT/ML SC SCH (17:42)
[2016-03-08] MEDS: ATORVASTATIN CALCIUM 20 MG TAB PO SCH (20:30)
[2016-03-08] MEDS: GABAPENTIN 300 MG CAP PO SCH (20:30)
[2016-03-08] MEDS: ASPIRIN 81 MG CHEWABLE TAB PO SCH (20:30)
[2016-03-08] MEDS: VANCOMYCIN HCL/NORMAL SALINE 250 ML IV SCH (20:47)
[2016-03-08] MEDS ORDERED: MIDAZOLAM 2 MG/2 ML VIAL ONE (21:22)
[2016-03-08] MEDS ORDERED: fentaNYL 100 MCG/2 ML INJ ONE (21:31)
[2016-03-08] MEDS ORDERED: PROPOFOL/EMULSION 500 MG/50 ML BOTTLE IV ONE (21:31)
[2016-03-08] MEDS ORDERED: DEXAMETHASONE 4 MG/ML VIAL ONE (21:32)
[2016-03-08] MEDS ORDERED: LIDOCAINE 2% JELLY 5 ML TUBE ONE (21:32)
[2016-03-08] MEDS ORDERED: ONDANSETRON 4 MG/2 ML VIAL ONE (21:32)
[2016-03-08] MEDS ORDERED: PHENYLEPHRINE HCL 100 MCG/ML SYR ONE (23:02)
[2016-03-08] MEDS ORDERED: OXYCODONE/APAP 5/325 TAB PO PRN (23:31)
--- NOTE | 2016-03-08 23:33 | POSTOPPROG ---
Post Op Note Date of Operation: 03/08/16 Surgeon: Pat De Los Santos Anesthesiologist: mckayla Anesthesia: GET(General Endotracheal) Pre-op Diagnosis: gangrene Post-op Diagnosis: same Indication: 80 yo with dm and gangrene Procedure: r bka Inf/Abcess present in the surg proc area at time of surgery?: Yes Depth: Deep Incisional (Fascial) EBL: 50-100 Drains: Wound Vac Specimen(s): lower leg
[2016-03-09 04:56] LABS: HEMATOCRIT 28.8 % (40.0-51.0); HEMOGLOBIN 9.2 g/dL (13.7-17.5); MEAN CELL HEMOGLOBIN 27.5 pg (27.9-34.1); MEAN CELL HEMOGLOBIN CONCENTR. 31.9 g/dL (32.4-36.7); MEAN CELL VOLUME 86.2 fL (81.5-99.8); RED BLOOD CELL COUNT 3.34 10^6/uL (4.40-6.38); RED CELL DISTRIBUTION WIDTH 14.9 % (11.5-15.2)
[2016-03-09 05:06] LABS: ANION GAP 10 mEq/L (8-16); CALCIUM 7.5 mg/dL (8.5-10.4); CARBON DIOXIDE 19 mEq/l (22-31); CHLORIDE 103 mEq/L (97-110); CREATININE 1.2 mg/dL (0.7-1.3); DIGOXIN 0.6 ng/mL (0.8-2.0); GLOMERULAR FILTRATION RATE 59; GLUCOSE 183 mg/dL (70-100); POTASSIUM 5.9 mEq/L (3.5-5.2); SODIUM 132 mEq/L (134-144)
[2016-03-09] MEDS: DIGOXIN 125 MCG TAB PO SCH ×3 (08:31→11:22)
[2016-03-09] MEDS: INSULIN GLARGINE 100 UNITS/ML SYRINGE SC SCH (08:31)
[2016-03-09] MEDS: FERROUS SULFATE 325 MG TAB PO SCH (08:32)
[2016-03-09] MEDS: METOPROLOL SUCCINATE XR 50 MG TAB PO SCH (08:32)
[2016-03-09] MEDS: OMEGA-3 FATTY ACIDS 1,000 MG CAP PO SCH ×2 (08:32→23:55)
[2016-03-09] MEDS: CHOLECALCIFEROL VIT D3 1,000 UNITS TAB PO SCH ×2 (08:32→23:55)
[2016-03-09] MEDS: GABAPENTIN 100 MG CAP PO SCH ×2 (08:32→17:40)
[2016-03-09] MEDS: INSULIN LISPRO 100 UNIT/ML SC SCH ×3 (08:33→17:41)
[2016-03-09] MEDS: ERTAPENEM 1 GM in NS 100 ML IV SCH (09:10)
--- NOTE | 2016-03-09 12:11 | PCMIDPN ---
Assessment/Plan: 1. Right lower extremity diabetic polymicrobial/necrotizing infection status post BKA: Appreciate 's excellent care. Continue vancomycin and ertapenem for now pending ID of gram-positive cocci in blood culture. No evidence of residual infection around the stump site. Wound VAC in place. 2. Gram-positive cocci in blood culture: Await identification of the organism. Continue vancomycin and ertapenem as is. Vancomycin trough tomorrow night before 4th dose. Objective: Vancomycin 1 g IV daily day 3 Ertapenem 1 g IV daily day 3 T-max 37degrees for Vital Signs Temp Pulse Resp BP Pulse Ox 36.6 C 65 16 100/54 L 100 03/09/16 04:00 03/09/16 07:49 03/09/16 07:49 03/09/16 07:49 03/09/16 07:49 Microbiology 03/07/16 18:00 Blood Panel (PCR) - Final Blood No Organisms Detected Laboratory Results 03/09/16 04:13 03/09/16 04:13 03/08/16 03/09/16 03/10/16 05:59 05:59 05:59 Intake Total 1510 2235 Output Total 230 550 Balance 1280 1685 Blood cultures March 07 2 sets with 1/4 bottles gram-positive cocci. PCR negative, identification pending - Physical Exam General Appearance: alert, no apparent distress EENT: pharynx normal, No scleral icterus, No thrush Respiratory: lungs clear Cardiac/Chest: regular rate, rhythm, systolic murmur Extremities: other (Right lower extremity status post BKA, wound VAC in place. No crepitus, significant tenderness around the VAC. No erythema.) Skin: No rash ICD10 Worksheet Patient Problems: Problems Problem Status Diagnosed CAD (coronary artery disease) Acute CVA (cerebral vascular accident) Acute Diabetes Acute Failure to thrive Acute Hypertension Acute Right foot infection Acute Acute kidney injury Acute Congestive heart failure (CHF) Acute Hyperkalemia Acute Hyponatremia Acute Malaise and fatigue Acute Severe sepsis Acute Supratherapeutic INR Acute Transient hypotension Acute
--- NOTE | 2016-03-09 12:18 | HOSPPROG ---
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- s/p bka on vanc erta atrial fibrillation- currently rate controlled in the 70s- INR 2.69 - check inr today dc tele acute on chronic kidney injury- creatinine 1.3-> 1.1 with IV fluids overnight - oxygen saturations 100% on 2 L appears euvolemic follow daily diabetes mellitus- blood sugars 164-244- holding metformin - continue glargine -cover with sliding scale insulin chronic hyponatremia- sodium 132 this morning - baseline continue to monitor hyperkalemia- potassium 6 at presentation- improved with IV fluid resuscitation diet diabetic prophylaxis anticoagulated follow inr daily disposition- greater than 2 midnights as requiring surgical debridement for worsening diabetic foot wound Subjective: s/p BKA. case d/w dr lazaro. no events tele (interp by me) Objective: Vital Signs Temp Pulse Resp BP Pulse Ox 36.6 C 65 16 100/54 L 100 03/09/16 04:00 03/09/16 07:49 03/09/16 07:49 03/09/16 07:49 03/09/16 07:49 Microbiology 03/07/16 18:00 Blood Panel (PCR) - Final Blood No Organisms Detected Laboratory Results 03/09/16 04:13 03/09/16 04:13 03/08/16 03/09/16 03/10/16 05:59 05:59 05:59 Intake Total 1510 2235 Output Total 230 550 Balance 1280 1685 PT 28.9 SEC (12.0-15.0) H 03/07/16 18:00 INR 2.69 (0.83-1.16) H 03/07/16 18:00 - Physical Exam Constitutional: no apparent distress, appears nourished Eyes: PERRL, anicteric sclera Ears, Nose, Mouth, Throat: moist mucous membranes, hearing normal Cardiovascular: regular rate and rhythym, no murmur, rub, or gallop Respiratory: no respiratory distress, no rales or rhonchi Gastrointestinal: normoactive bowel sounds, soft, non-tender abdomen Genitourinary: no bladder fullness, No haskins in urethra Skin: warm, normal color Musculoskeletal: other (R BKA stump looks great) Neurologic: AAOx3, sensation intact bilaterally Psychiatric: interacting appropriately Lymph, Heme, Immunologic: no cervical LAD ICD10 Worksheet Patient Problems: Problems Problem Status Diagnosed CAD (coronary artery disease) Acute CVA (cerebral vascular accident) Acute Diabetes Acute Failure to thrive Acute Hypertension Acute Right foot infection Acute Acute kidney injury Acute Congestive heart failure (CHF) Acute Hyperkalemia Acute Hyponatremia Acute Malaise and fatigue Acute Severe sepsis Acute Supratherapeutic INR Acute Transient hypotension Acute
[2016-03-09 13:07] LABS: GLUCOSE 366 mg/dL (70-100)
[2016-03-09 13:39] LABS: INR 3.58 (0.83-1.16); PROTIME(PATIENT) 36.3 SEC (12.0-15.0)
[2016-03-09] MEDS: ACETAMINOPHEN 325 MG TAB PO SCH ×2 (15:15→23:54)
[2016-03-09] MEDS: VANCOMYCIN HCL/NORMAL SALINE 250 ML IV SCH (17:41)
[2016-03-09] MEDS: GABAPENTIN 300 MG CAP PO SCH (23:54)
[2016-03-09] MEDS: ATORVASTATIN CALCIUM 20 MG TAB PO SCH (23:54)
[2016-03-09] MEDS: ASPIRIN 81 MG CHEWABLE TAB PO SCH (23:54)
[2016-03-10 00:08] LABS: GLUCOSE 462 mg/dL (70-100)
[2016-03-10] MEDS ORDERED: INSULIN LISPRO 100 UNIT/ML SC ONE (00:25)
[2016-03-10 04:47] LABS: ADD DIFF? YES; ADD MORPH? NO; ADD SCAN? NO; ANION GAP 3 mEq/L (8-16); ATYPICAL LYMPHOCYTE FLAG 10 (0-99); CARBON DIOXIDE 22 mEq/l (22-31); CHLORIDE 99 mEq/L (97-110); CREATININE 1.3 mg/dL (0.7-1.3); FRAGMENT RBC FLAG 0 (0-99); GLOMERULAR FILTRATION RATE 53; GLUCOSE 479 mg/dL (70-100); HEMATOCRIT 27.1 % (40.0-51.0); HEMOGLOBIN 9.2 g/dL (13.7-17.5); LEFT SHIFT FLG 50 (0-99); LIPEMIA HEMOLYSIS FLAG 90 (0-99); MEAN CELL HEMOGLOBIN 28.1 pg (27.9-34.1); MEAN CELL HEMOGLOBIN CONCENTR. 33.9 g/dL (32.4-36.7); MEAN CELL VOLUME 82.9 fL (81.5-99.8); PLATELET CLUMPS FLAG 10 (0-99); PLATELET COUNT 262 10^3/uL (150-400); RED BLOOD CELL COUNT 3.27 10^6/uL (4.40-6.38); RED CELL DISTRIBUTION WIDTH 14.6 % (11.5-15.2); SODIUM 124 mEq/L (134-144)
[2016-03-10 04:48] LABS: CALCIUM 7.1 mg/dL (8.5-10.4)
[2016-03-10 04:50] LABS: POTASSIUM 6.5 mEq/L (3.5-5.2)
[2016-03-10 05:03] LABS: INR 4.11 (0.83-1.16); PROTIME(PATIENT) 40.6 SEC (12.0-15.0)
[2016-03-10 05:11] LABS: PLATELET ESTIMATE ADEQUATE (ADEQ)
[2016-03-10] MEDS ORDERED: INSULIN REGULAR HUMAN 100 UNIT/ML IVP ONE (05:15)
--- NOTE | 2016-03-10 05:45 | CPEKG ---
Heart Rate: 65 RR Interval: 923 QRSD Interval: 124 QT Interval: 452 QTC Interval: 470 QRS [place]: 255 T Wave [place]: 25 EKG Severity - ABNORMAL ECG - EKG Impression: VENTRICULAR-PACED RHYTHM Electronically Signed By: Orlando Panchal 10-Mar-2016 12:12:21
[2016-03-10] MEDS: ACETAMINOPHEN 325 MG TAB PO SCH ×3 (05:50→21:16)
[2016-03-10] MEDS: ERTAPENEM 1 GM in NS 100 ML IV SCH (08:49)
[2016-03-10] MEDS: INSULIN LISPRO 100 UNIT/ML SC SCH ×4 (08:50→21:15)
[2016-03-10] MEDS: METOPROLOL SUCCINATE XR 50 MG TAB PO SCH (08:50)
[2016-03-10] MEDS: OMEGA-3 FATTY ACIDS 1,000 MG CAP PO SCH ×2 (08:51→21:15)
[2016-03-10] MEDS: FERROUS SULFATE 325 MG TAB PO SCH (08:51)
[2016-03-10] MEDS: CHOLECALCIFEROL VIT D3 1,000 UNITS TAB PO SCH ×2 (08:51→21:16)
[2016-03-10] MEDS: GABAPENTIN 100 MG CAP PO SCH ×2 (08:51→18:31)
[2016-03-10 09:26] LABS: ANION GAP 3 mEq/L (8-16); CALCIUM 7.1 mg/dL (8.5-10.4); CARBON DIOXIDE 22 mEq/l (22-31); CHLORIDE 101 mEq/L (97-110); CREATININE 1.2 mg/dL (0.7-1.3); GLOMERULAR FILTRATION RATE 59; GLUCOSE 391 mg/dL (70-100); POTASSIUM 6.1 mEq/L (3.5-5.2); SODIUM 126 mEq/L (134-144)
--- NOTE | 2016-03-10 09:27 | SOAPPROG ---
SOAP Progress Note Assessment/Plan: Assessment/Plan - 80yo M POD#2 s/p R BKA for gangrene - afebrile, rate controlled A-fib/flutter - Pain appears well controlled. - R BKA stump covered with stump protector, incision covered with clean dressing. Will remove tomorrow - WBC persists at 20k, cont BS abx (vanc erta) 03/10/16 09:23 03/10/16 09:23 03/10/16 09:25 Subjective: Resting, states that his pain is well controlled. Objective: Vital Signs Temp Pulse Resp BP Pulse Ox 36.7 C 65 18 108/63 100 03/10/16 08:00 03/10/16 08:00 03/10/16 08:00 03/10/16 08:00 03/10/16 08:00 Microbiology 03/07/16 18:00 Blood Panel (PCR) - Final Blood No Organisms Detected Laboratory Results 03/10/16 04:01 03/09/16 03/10/16 03/11/16 05:59 05:59 05:59 Intake Total 2235 1620 Output Total 550 325 Balance 1685 1295 PT 40.6 SEC (12.0-15.0) H 03/10/16 04:01 INR 4.11 (0.83-1.16) H 03/10/16 04:01 ICD10 Worksheet Patient Problems: Problems Problem Status Diagnosed CAD (coronary artery disease) Acute CVA (cerebral vascular accident) Acute Diabetes Acute Failure to thrive Acute Hypertension Acute Right foot infection Acute Acute kidney injury Acute Congestive heart failure (CHF) Acute Hyperkalemia Acute Hyponatremia Acute Malaise and fatigue Acute Severe sepsis Acute Supratherapeutic INR Acute Transient hypotension Acute
[2016-03-10] MEDS: INSULIN GLARGINE 100 UNITS/ML SYRINGE SC SCH ×3 (10:50→21:23)
[2016-03-10] MEDS: DILTIAZEM SR 90 MG CAP PO SCH (11:09)
[2016-03-10] MEDS: DIGOXIN 125 MCG TAB PO SCH (11:09)
--- NOTE | 2016-03-10 12:50 | PCMIDPN ---
Assessment/Plan: 1. Right lower extremity diabetic polymicrobial/necrotizing infection status post BKA: White blood cell count up today for unclear reasons. I took off the patient's stump protector and thoroughly looked around the wound VAC. The area looks clean and dry without evidence of infection. Wound VAC to be changed tomorrow. Repeat CBC tomorrow. Discontinue vancomycin (see 2.) continue ertapenem. No evidence of other nosocomial process. No diarrhea to suggest C diff. 2. Anaerobic Gram-positive cocci in blood culture: Await identification of the organism. Continue ertapenem alone. He will need 2 weeks of therapy for this. If blood culture remains sterile, PICC line tomorrow. 03/10/16 12:46 Subjective: White blood cell count up today to 20,000, and blood sugars are quite high. The patient is very stool occult today and denies any significant pain. Denies shortness of breath or cough. No nausea or vomiting. No shortness of breath, diarrhea. Objective: Vancomycin 1 g IV daily day 4 Ertapenem 1 g IV daily day 4 Afebrile Vital Signs Temp Pulse Resp BP Pulse Ox 36.7 C 65 18 100/62 100 03/10/16 08:00 03/10/16 11:09 03/10/16 08:00 03/10/16 11:09 03/10/16 08:00 Microbiology 03/07/16 18:00 Blood Panel (PCR) - Final Blood No Organisms Detected Laboratory Results 03/10/16 04:01 03/10/16 08:40 03/09/16 03/10/16 03/11/16 05:59 05:59 05:59 Intake Total 2235 1620 Output Total 550 325 Balance 1685 1295 Repeat blood culture March 09 pending March 0702/14 bottles an anaerobic gram-positive cocci - Physical Exam General Appearance: alert, no apparent distress EENT: pharynx normal, No thrush Respiratory: lungs clear Cardiac/Chest: systolic murmur Extremities: other (Right lower extremity stump protector removed: Wound VAC in place. No evidence of drainage or erythema. No crepitus. No significant tenderness to palpation.) Abdomen: non-tender, soft Skin: No rash, No embolic lesions ICD10 Worksheet Patient Problems: Problems Problem Status Diagnosed CAD (coronary artery disease) Acute CVA (cerebral vascular accident) Acute Diabetes Acute Failure to thrive Acute Hypertension Acute Right foot infection Acute Acute kidney injury Acute Congestive heart failure (CHF) Acute Hyperkalemia Acute Hyponatremia Acute Malaise and fatigue Acute Severe sepsis Acute Supratherapeutic INR Acute Transient hypotension Acute
[2016-03-10 14:55] LABS: GLUCOSE 409 mg/dL (70-100)
[2016-03-10] MEDS ORDERED: D50W 25 GM/50 ML SYR IVP PRN (15:41)
--- NOTE | 2016-03-10 15:45 | HOSPPROG ---
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- s/p bka on erta vanc dc'd atrial fibrillation- currently rate controlled in the 70s- INR 2.69 anticoagulated warfarin on hold- follow daily acute on chronic kidney injury- creatinine 1.3-> 1.1 with IV fluids overnight - oxygen saturations 100% on 2 L appears euvolemic follow daily diabetes mellitus- very hyperglycemic increase ss to "very high" add pm lantus constipation: add miralax chronic hyponatremia- sodium 132 this morning - baseline continue to monitor hyperkalemia- potassium 6 at presentation- improved with IV fluid resuscitation diet diabetic prophylaxis anticoagulated follow inr daily disposition- greater than 2 midnights as requiring surgical debridement for worsening diabetic foot wound Subjective: case d/w dr lazaro. hyperglycemic Objective: Vital Signs Temp Pulse Resp BP Pulse Ox 36.8 C 68 17 112/63 92 03/10/16 12:13 03/10/16 12:13 03/10/16 12:13 03/10/16 12:13 03/10/16 12:13 Microbiology 03/07/16 18:00 Blood Panel (PCR) - Final Blood No Organisms Detected Laboratory Results 03/10/16 04:01 03/10/16 13:48 03/09/16 03/10/16 03/11/16 05:59 05:59 05:59 Intake Total 2235 1620 Output Total 550 325 Balance 1685 1295 PT 40.6 SEC (12.0-15.0) H 03/10/16 04:01 INR 4.11 (0.83-1.16) H 03/10/16 04:01 - Physical Exam Constitutional: no apparent distress, appears nourished Eyes: PERRL, anicteric sclera Ears, Nose, Mouth, Throat: moist mucous membranes, hearing normal Cardiovascular: regular rate and rhythym, no murmur, rub, or gallop Respiratory: no respiratory distress, no rales or rhonchi Gastrointestinal: normoactive bowel sounds, soft, non-tender abdomen Genitourinary: No haskins in urethra Skin: warm, normal color Musculoskeletal: full muscle strength ICD10 Worksheet Patient Problems: Problems Problem Status Diagnosed CAD (coronary artery disease) Acute CVA (cerebral vascular accident) Acute Diabetes Acute Failure to thrive Acute Hypertension Acute Right foot infection Acute Acute kidney injury Acute Congestive heart failure (CHF) Acute Hyperkalemia Acute Hyponatremia Acute Malaise and fatigue Acute Severe sepsis Acute Supratherapeutic INR Acute Transient hypotension Acute
[2016-03-10] MEDS: POLYETHYLENE GLYCOL 3350 17 GM PKT PO SCH (18:35)
[2016-03-10] MEDS: GABAPENTIN 300 MG CAP PO SCH (21:15)
[2016-03-10] MEDS: ATORVASTATIN CALCIUM 20 MG TAB PO SCH (21:15)
[2016-03-10] MEDS: ASPIRIN 81 MG CHEWABLE TAB PO SCH (21:15)
[2016-03-11 04:49] LABS: ADD DIFF? YES; ADD MORPH? NO; ADD SCAN? NO; ATYPICAL LYMPHOCYTE FLAG 20 (0-99); FRAGMENT RBC FLAG 0 (0-99); HEMATOCRIT 25.3 % (40.0-51.0); HEMOGLOBIN 8.7 g/dL (13.7-17.5); LEFT SHIFT FLG 40 (0-99); LIPEMIA HEMOLYSIS FLAG 90 (0-99); MEAN CELL HEMOGLOBIN 28.6 pg (27.9-34.1); MEAN CELL HEMOGLOBIN CONCENTR. 34.4 g/dL (32.4-36.7); MEAN CELL VOLUME 83.2 fL (81.5-99.8); MEAN PLATELET VOLUME 9.9 fL (8.7-11.7); PLATELET CLUMPS FLAG 0 (0-99); PLATELET COUNT 227 10^3/uL (150-400); RED BLOOD CELL COUNT 3.04 10^6/uL (4.40-6.38); RED CELL DISTRIBUTION WIDTH 14.8 % (11.5-15.2)
[2016-03-11 04:53] LABS: INR 4.02 (0.83-1.16); PROTIME(PATIENT) 39.9 SEC (12.0-15.0)
[2016-03-11 05:00] LABS: ANION GAP 2 mEq/L (8-16); CALCIUM 7.3 mg/dL (8.5-10.4); CARBON DIOXIDE 25 mEq/l (22-31); CHLORIDE 101 mEq/L (97-110); CREATININE 1.1 mg/dL (0.7-1.3); GLOMERULAR FILTRATION RATE > 60; GLUCOSE 161 mg/dL (70-100); SODIUM 128 mEq/L (134-144)
[2016-03-11 05:10] LABS: POTASSIUM 6.3 mEq/L (3.5-5.2)
[2016-03-11 05:21] LABS: PLATELET ESTIMATE ADEQUATE (ADEQ)
[2016-03-11 05:23] LABS: HYPOCHROMIA 1+
[2016-03-11] MEDS: ACETAMINOPHEN 325 MG TAB PO SCH ×2 (06:25→17:12)
[2016-03-11] MEDS: INSULIN GLARGINE 100 UNITS/ML SYRINGE SC SCH ×2 (08:51→20:47)
[2016-03-11] MEDS: POLYETHYLENE GLYCOL 3350 17 GM PKT PO SCH (08:51)
[2016-03-11] MEDS: INSULIN LISPRO 100 UNIT/ML SC SCH ×4 (08:52→20:46)
[2016-03-11] MEDS: CHOLECALCIFEROL VIT D3 1,000 UNITS TAB PO SCH ×2 (08:52→20:40)
[2016-03-11] MEDS: METOPROLOL SUCCINATE XR 50 MG TAB PO SCH (08:53)
[2016-03-11] MEDS: ERTAPENEM 1 GM in NS 100 ML IV SCH (08:53)
[2016-03-11] MEDS: FERROUS SULFATE 325 MG TAB PO SCH (08:53)
[2016-03-11] MEDS: GABAPENTIN 100 MG CAP PO SCH ×2 (08:53→16:52)
[2016-03-11] MEDS: OMEGA-3 FATTY ACIDS 1,000 MG CAP PO SCH ×2 (10:16→20:40)
[2016-03-11] MEDS: DILTIAZEM SR 90 MG CAP PO SCH (10:16)
[2016-03-11] MEDS ORDERED: MAGNESIUM CITRATE 300 ML BOTTLE PO ONE (12:36)
[2016-03-11] MEDS ORDERED: SODIUM POLY SULF 15 GM/60 ML BOTTLE PO ONE (12:40)
--- NOTE | 2016-03-11 12:43 | HOSPPROG ---
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- s/p bka on erta vanc dc'd atrial fibrillation- currently rate controlled in the 70s- INR 2.69 anticoagulated warfarin on hold- follow daily acute on chronic kidney injury- creatinine 1.3-> 1.1 with IV fluids overnight - oxygen saturations 100% on 2 L appears euvolemic follow daily diabetes mellitus- very hyperglycemic increase ss to "very high" blood sugars improved w pm lantus constipation: add miralax still no bm kayexalate X 1 given concomitant hyperkalemia chronic hyponatremia- sodium 132 this morning - baseline continue to monitor hyperkalemia- potassium 6 at presentation- improved with IV fluid resuscitation diet diabetic prophylaxis anticoagulated follow inr daily disposition- greater than 2 midnights as requiring surgical debridement for worsening diabetic foot wound Subjective: case discussed w dr lazaro. tele: no events , paced (interp by me) Objective: Vital Signs Temp Pulse Resp BP Pulse Ox 36.6 C 69 13 113/60 99 03/11/16 12:00 03/11/16 12:00 03/11/16 12:00 03/11/16 12:00 03/11/16 12:00 Microbiology 03/07/16 18:00 Blood Panel (PCR) - Final Blood No Organisms Detected Laboratory Results 03/11/16 04:01 03/11/16 04:01 03/10/16 03/11/16 03/12/16 05:59 05:59 05:59 Intake Total 1620 880 Output Total 325 950 Balance 1295 -70 PT 39.9 SEC (12.0-15.0) H 03/11/16 04:01 INR 4.02 (0.83-1.16) H 03/11/16 04:01 - Physical Exam Constitutional: no apparent distress, appears nourished Eyes: PERRL, anicteric sclera Ears, Nose, Mouth, Throat: moist mucous membranes, hearing normal Cardiovascular: regular rate and rhythym, no murmur, rub, or gallop Respiratory: no respiratory distress, no rales or rhonchi Gastrointestinal: normoactive bowel sounds, soft, non-tender abdomen Genitourinary: no bladder fullness, haskins in urethra Skin: warm Musculoskeletal: full muscle strength Neurologic: AAOx3, sensation intact bilaterally Psychiatric: interacting appropriately, not anxious Lymph, Heme, Immunologic: no cervical LAD ICD10 Worksheet Patient Problems: Problems Problem Status Diagnosed CAD (coronary artery disease) Acute CVA (cerebral vascular accident) Acute Diabetes Acute Failure to thrive Acute Hypertension Acute Right foot infection Acute Acute kidney injury Acute Congestive heart failure (CHF) Acute Hyperkalemia Acute Hyponatremia Acute Malaise and fatigue Acute Severe sepsis Acute Supratherapeutic INR Acute Transient hypotension Acute
[2016-03-11] MEDS: DIGOXIN 125 MCG TAB PO SCH (12:59)
--- NOTE | 2016-03-11 14:12 | SOAPPROG ---
SOAP Progress Note Assessment/Plan: Assessment/Plan - 80yo M POD#2 s/p R BKA for gangrene - WBc markedly improved - BKA covered with stump protector, otherwise clean and stable. Will change dressing tomorrow 03/10/16 09:23 03/10/16 09:23 03/10/16 09:25 03/11/16 14:11 Objective: Vital Signs Temp Pulse Resp BP Pulse Ox 36.6 C 69 13 113/60 99 03/11/16 12:00 03/11/16 12:00 03/11/16 12:00 03/11/16 12:00 03/11/16 12:00 Microbiology 03/07/16 18:00 Blood Panel (PCR) - Final Blood No Organisms Detected Laboratory Results 03/11/16 04:01 03/11/16 04:01 03/10/16 03/11/16 03/12/16 05:59 05:59 05:59 Intake Total 1620 880 Output Total 325 950 Balance 1295 -70 PT 39.9 SEC (12.0-15.0) H 03/11/16 04:01 INR 4.02 (0.83-1.16) H 03/11/16 04:01 ICD10 Worksheet Patient Problems: Problems Problem Status Diagnosed CAD (coronary artery disease) Acute CVA (cerebral vascular accident) Acute Diabetes Acute Failure to thrive Acute Hypertension Acute Right foot infection Acute Acute kidney injury Acute Congestive heart failure (CHF) Acute Hyperkalemia Acute Hyponatremia Acute Malaise and fatigue Acute Severe sepsis Acute Supratherapeutic INR Acute Transient hypotension Acute
[2016-03-11] MEDS: ACETAMINOPHEN 500 MG TAB PO PRN (16:51)
--- NOTE | 2016-03-11 17:55 | CPEKG ---
Heart Rate: 67 RR Interval: 896 QRSD Interval: 108 QT Interval: 428 QTC Interval: 452 QRS Glad[place]: 245 T Wave [place]: 38 EKG Severity - ABNORMAL ECG - EKG Impression: AFIB/FLUTTER AND VENTRICULAR-PACED RHYTHM Electronically Signed By: Chente Mccain 12-Mar-2016 08:55:28
[2016-03-11] MEDS: ASPIRIN 81 MG CHEWABLE TAB PO SCH (20:40)
[2016-03-11] MEDS: GABAPENTIN 300 MG CAP PO SCH (20:40)
[2016-03-11] MEDS: ATORVASTATIN CALCIUM 20 MG TAB PO SCH (20:40)
[2016-03-12 05:25] LABS: ADD DIFF? YES; ADD MORPH? NO; ADD SCAN? NO; ATYPICAL LYMPHOCYTE FLAG 10 (0-99); FRAGMENT RBC FLAG 0 (0-99); HEMATOCRIT 27.4 % (40.0-51.0); HEMOGLOBIN 9.1 g/dL (13.7-17.5); LEFT SHIFT FLG 60 (0-99); LIPEMIA HEMOLYSIS FLAG 80 (0-99); MEAN CELL HEMOGLOBIN 28.2 pg (27.9-34.1); MEAN CELL HEMOGLOBIN CONCENTR. 33.2 g/dL (32.4-36.7); MEAN CELL VOLUME 84.8 fL (81.5-99.8); MEAN PLATELET VOLUME 9.4 fL (8.7-11.7); PLATELET CLUMPS FLAG 10 (0-99); PLATELET COUNT 218 10^3/uL (150-400); RED BLOOD CELL COUNT 3.23 10^6/uL (4.40-6.38)
[2016-03-12 05:46] LABS: INR 2.96 (0.83-1.16); PROTIME(PATIENT) 31.2 SEC (12.0-15.0)
[2016-03-12 05:52] LABS: ANION GAP 3 mEq/L (8-16); CALCIUM 7.7 mg/dL (8.5-10.4); CARBON DIOXIDE 27 mEq/l (22-31); CHLORIDE 104 mEq/L (97-110); GLOMERULAR FILTRATION RATE > 60; GLUCOSE 90 mg/dL (70-100); POTASSIUM 5.7 mEq/L (3.5-5.2); SODIUM 134 mEq/L (134-144)
[2016-03-12 06:44] LABS: HYPOCHROMIA 1+; PLATELET ESTIMATE ADEQUATE (ADEQ)
[2016-03-12] MEDS: ERTAPENEM 1 GM in NS 100 ML IV SCH (08:19)
[2016-03-12] MEDS: DIGOXIN 125 MCG TAB PO SCH (08:20)
[2016-03-12] MEDS: METOPROLOL SUCCINATE XR 50 MG TAB PO SCH (08:21)
[2016-03-12] MEDS: OMEGA-3 FATTY ACIDS 1,000 MG CAP PO SCH ×2 (08:21→21:28)
[2016-03-12] MEDS: FERROUS SULFATE 325 MG TAB PO SCH (08:21)
[2016-03-12] MEDS: DILTIAZEM SR 90 MG CAP PO SCH (08:21)
[2016-03-12] MEDS: CHOLECALCIFEROL VIT D3 1,000 UNITS TAB PO SCH ×2 (08:21→21:27)
[2016-03-12] MEDS: GABAPENTIN 100 MG CAP PO SCH ×2 (08:27→18:49)
--- NOTE | 2016-03-12 09:26 | SOAPPROG ---
SOAP Progress Note Assessment/Plan: late entry from 03/09/2016 Assessment: 80yo M POD#1 s/p R BKA for worsening diabetic foot wound Appreciate hospitalist management of comorbidities Pain currently controlled Vac to suction Will have blind hanger come to fit for stump protector Begin working with PT Seen with Dr. De Los Santos S: No complaints this am O: Lying in bed, comfortable, no acute distress No increased work of breathing Right stump wound VAC to suction, no surrounding erythema, nontender. Objective: Vital Signs Temp Pulse Resp BP Pulse Ox 36.6 C 68 16 101/52 L 100 03/12/16 04:00 03/12/16 04:00 03/12/16 04:00 03/12/16 04:00 03/12/16 04:00 Microbiology 03/07/16 18:00 Blood Panel (PCR) - Final Blood No Organisms Detected Laboratory Results 03/12/16 04:38 03/12/16 04:38 03/11/16 03/12/16 03/13/16 05:59 05:59 05:59 Intake Total 880 300 Output Total 950 1975 Balance -70 -1675 PT 31.2 SEC (12.0-15.0) H D 03/12/16 04:38 INR 2.96 (0.83-1.16) H 03/12/16 04:38 ICD10 Worksheet Patient Problems: Problems Problem Status Diagnosed CAD (coronary artery disease) Acute CVA (cerebral vascular accident) Acute Diabetes Acute Failure to thrive Acute Hypertension Acute Right foot infection Acute Acute kidney injury Acute Congestive heart failure (CHF) Acute Hyperkalemia Acute Hyponatremia Acute Malaise and fatigue Acute Severe sepsis Acute Supratherapeutic INR Acute Transient hypotension Acute
--- NOTE | 2016-03-12 09:29 | SOAPPROG ---
SOAP Progress Note Assessment/Plan: Assessment: 80yo M POD#4 s/p R BKA for worsening diabetic foot wound Leukocytosis significantly improved Blood culture on admit 03/07 with gemella morbillorum, repeat blood culture 03/09 NGTD Vancomycin discontinued, continue IV invanz per ID Vac changed this am with WOCN, incision CDI. Replaced vac dressing Continue stump protector Continue PT Appreciate hospitalist management of comorbidities and ID management of IV antibiotics S: No complaints this am O: Lying in bed, comfortable, no acute distress No increased work of breathing Right stump wound VAC removed. Incision clean, dry and intact without evidence of infection. No surrounding erythema or drainage. Sutures and keri intact. Right wound VAC replaced Left heel deep tissue injury 3.5 x 3.7 x 0 cm, also evaluated by wound care nurse. Objective: Vital Signs Temp Pulse Resp BP Pulse Ox 36.6 C 68 16 101/52 L 100 03/12/16 04:00 03/12/16 04:00 03/12/16 04:00 03/12/16 04:00 03/12/16 04:00 Microbiology 03/07/16 18:00 Blood Panel (PCR) - Final Blood No Organisms Detected Laboratory Results 03/12/16 04:38 03/12/16 04:38 03/11/16 03/12/16 03/13/16 05:59 05:59 05:59 Intake Total 880 300 Output Total 950 1975 Balance -70 -1673 PT 31.2 SEC (12.0-15.0) H D 03/12/16 04:38 INR 2.96 (0.83-1.16) H 03/12/16 04:38 ICD10 Worksheet Patient Problems: Problems Problem Status Diagnosed CAD (coronary artery disease) Acute CVA (cerebral vascular accident) Acute Diabetes Acute Failure to thrive Acute Hypertension Acute Right foot infection Acute Acute kidney injury Acute Congestive heart failure (CHF) Acute Hyperkalemia Acute Hyponatremia Acute Malaise and fatigue Acute Severe sepsis Acute Supratherapeutic INR Acute Transient hypotension Acute
--- NOTE | 2016-03-12 09:38 | WOCRNPDOC ---
ELIZABETH Advanced Assessment Note - Skin Integrity Problem, Advanced Assess Left Heel Pressure Injury Dressing Type: Open to Air Wound Bed Color: Purple Site Measurement - Head-to-Toe Length X Width X Depth (cm): 3.5x3.7x0 Pressure Injury Stage: Deep Tissue Injury (DTI) Pressure Injury Present on Admit: No Extremity Temperature: Warm Skin Integrity Problem Comment: Extensive deep tissue injury. Will watch closely. Heel boot in place. Do not cover with Allevyn. Alert wound care when area opens. Will round on patient again on 03/14. Right Lower Leg Surgical Wound/Incision Dressing Type: Black Vac Foam, Contact Layer, Wound Vac Closure Description: Hudson, Approximated Exudate Amount: None Integumentary Issue Intervention: Dressing Changed (with Emily GONZALEZ) Skin Integrity Problem Comment: Incisional vac dressing replaced. Adaptic touch over hudson and drape samantha incisional. Covered Adaptic touch with black foam. Vac set to - 75 mm Hg continuous suction. Sacrum Pressure Injury Dressing Type: Allevyn Life Dressing Description: Clean/Dry, Intact Samantha Wound Tissue: Blanching, Erythema Site Measurement - Head-to-Toe Length X Width X Depth (cm): 1.5x1x0 Pressure Injury Stage: Deep Tissue Injury (DTI) Pressure Injury Present on Admit: No Skin Integrity Problem Comment: Areas of friction injury continue and incontinence also continues. No allevyns please. Calazime to area.
[2016-03-12] MEDS: INSULIN LISPRO 100 UNIT/ML SC SCH ×4 (10:23→21:34)
[2016-03-12] MEDS: POLYETHYLENE GLYCOL 3350 17 GM PKT PO SCH (10:23)
[2016-03-12] MEDS: INSULIN GLARGINE 100 UNITS/ML SYRINGE SC SCH ×2 (11:43→21:31)
--- NOTE | 2016-03-12 12:54 | HOSPPROG ---
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- s/p bka on erta vanc dc'd atrial fibrillation- currently rate controlled in the 70s- INR 2.69 anticoagulated warfarin restarted at lower dose today acute on chronic kidney injury- creatinine 1.3-> 1.1 with IV fluids overnight - oxygen saturations 100% on 2 L appears euvolemic follow daily diabetes mellitus- blood sugars improved w addition of hs lantus and change to 'very high' insulin ss constipation: add miralax still no bm kayexalate X 1 given concomitant hyperkalemia chronic hyponatremia- sodium 132 this morning - baseline continue to monitor hyperkalemia- continues to have high K is on ROSALINDA-I (low dose) as well as BB, both of which can cause hyperkalemia hold ROSALINDA dose of kayex today no events on tele (interp by me) diet diabetic prophylaxis anticoagulated follow inr daily disposition- greater than 2 midnights as requiring surgical debridement for worsening diabetic foot wound case d/w dr abdi Subjective: moved bowels Objective: Vital Signs Temp Pulse Resp BP Pulse Ox 36.3 C 75 12 130/68 H 98 03/12/16 11:30 03/12/16 11:30 03/12/16 11:30 03/12/16 11:30 03/12/16 11:30 Microbiology 03/07/16 18:00 Blood Panel (PCR) - Final Blood No Organisms Detected Laboratory Results 03/12/16 04:38 03/12/16 04:38 03/11/16 03/12/16 03/13/16 05:59 05:59 05:59 Intake Total 880 300 Output Total 950 0003 700 Balance -19 -4309 -700 PT 31.2 SEC (12.0-15.0) H D 03/12/16 04:38 INR 2.96 (0.83-1.16) H 03/12/16 04:38 - Physical Exam Constitutional: no apparent distress, appears nourished Eyes: PERRL, anicteric sclera Ears, Nose, Mouth, Throat: moist mucous membranes, hearing normal Cardiovascular: regular rate and rhythym, no murmur, rub, or gallop Respiratory: no respiratory distress, no rales or rhonchi Gastrointestinal: normoactive bowel sounds, soft, non-tender abdomen Genitourinary: No haskins in urethra Skin: warm, normal color Musculoskeletal: other (R BKA badaged- did not take down) Neurologic: AAOx3 Psychiatric: interacting appropriately, not anxious Lymph, Heme, Immunologic: no cervical LAD ICD10 Worksheet Patient Problems: Problems Problem Status Diagnosed CAD (coronary artery disease) Acute CVA (cerebral vascular accident) Acute Diabetes Acute Failure to thrive Acute Hypertension Acute Right foot infection Acute Acute kidney injury Acute Congestive heart failure (CHF) Acute Hyperkalemia Acute Hyponatremia Acute Malaise and fatigue Acute Severe sepsis Acute Supratherapeutic INR Acute Transient hypotension Acute
[2016-03-12] MEDS: WARFARIN SODIUM 4 MG TAB PO SCH (15:23)
[2016-03-12] MEDS ORDERED: ALTEPLASE 2 MG VIAL IVP PRN (15:42)
--- NOTE | 2016-03-12 18:51 | PCMIDPN ---
Assessment/Plan: Assessment/Plan: * Severe right diabetic foot infection status post BKA with associated Gemella bacteremia: Plan 2 weeks of ertapenem given presence of bacteremia. Soft tissue infection should be resolved after BKA. Okay to proceed with PICC line as repeat blood cultures are no growth. Findings and plan discussed with patient today. 03/12/16 18:48 Subjective: Patient without specific complaints. Objective: Vital Signs Temp Pulse Resp BP Pulse Ox 36.3 C 67 16 115/53 L 93 03/12/16 11:30 03/12/16 16:50 03/12/16 16:50 03/12/16 16:50 03/12/16 16:50 Microbiology 03/07/16 18:00 Blood Panel (PCR) - Final Blood No Organisms Detected Laboratory Results 03/12/16 04:38 03/12/16 04:38 03/11/16 03/12/16 03/13/16 05:59 05:59 05:59 Intake Total 880 300 580 Output Total 950 1975 1500 Balance -02 -5723 -962 Ertapenem # 6 Blood culture 03/09/2016 no growth Blood cultures 03/07/2016 1/2 sets with growth of Gemella - Physical Exam General Appearance: alert, no apparent distress EENT: No scleral icterus Cardiac/Chest: regular rate, rhythm Extremities: inflammation (Right BKA stump site with wound VAC in place and no surrounding erythema) Abdomen: non-tender, No distended ICD10 Worksheet Patient Problems: Problems Problem Status Diagnosed CAD (coronary artery disease) Acute CVA (cerebral vascular accident) Acute Diabetes Acute Failure to thrive Acute Hypertension Acute Right foot infection Acute Acute kidney injury Acute Congestive heart failure (CHF) Acute Hyperkalemia Acute Hyponatremia Acute Malaise and fatigue Acute Severe sepsis Acute Supratherapeutic INR Acute Transient hypotension Acute
[2016-03-12] MEDS: ASPIRIN 81 MG CHEWABLE TAB PO SCH (21:27)
[2016-03-12] MEDS: GABAPENTIN 300 MG CAP PO SCH (21:27)
[2016-03-12] MEDS: ATORVASTATIN CALCIUM 20 MG TAB PO SCH (21:27)
[2016-03-13 05:32] LABS: ADD DIFF? YES; ADD MORPH? NO; ADD SCAN? NO; ATYPICAL LYMPHOCYTE FLAG 20 (0-99); FRAGMENT RBC FLAG 0 (0-99); HEMATOCRIT 26.9 % (40.0-51.0); LEFT SHIFT FLG 50 (0-99); LIPEMIA HEMOLYSIS FLAG 80 (0-99); MEAN CELL HEMOGLOBIN CONCENTR. 33.5 g/dL (32.4-36.7); MEAN CELL VOLUME 83.8 fL (81.5-99.8); MEAN PLATELET VOLUME 9.3 fL (8.7-11.7); PLATELET CLUMPS FLAG 10 (0-99); PLATELET COUNT 241 10^3/uL (150-400); RED BLOOD CELL COUNT 3.21 10^6/uL (4.40-6.38); RED CELL DISTRIBUTION WIDTH 15.1 % (11.5-15.2)
[2016-03-13 05:42] LABS: INR 2.18 (0.83-1.16); PROTIME(PATIENT) 24.4 SEC (12.0-15.0)
[2016-03-13 05:56] LABS: ANION GAP 2 mEq/L (8-16); CALCIUM 7.9 mg/dL (8.5-10.4); CARBON DIOXIDE 29 mEq/l (22-31); CHLORIDE 104 mEq/L (97-110); GLOMERULAR FILTRATION RATE > 60; GLUCOSE 47 mg/dL (70-100); POTASSIUM 5.3 mEq/L (3.5-5.2); SODIUM 135 mEq/L (134-144)
[2016-03-13 06:35] LABS: PLATELET ESTIMATE ADEQUATE (ADEQ)
[2016-03-13 06:40] LABS: HYPOCHROMIA 1+
--- NOTE | 2016-03-13 08:58 | SOAPPROG ---
SOAP Progress Note Assessment/Plan: Assessment: 80yo M POD#5 s/p R BKA for worsening diabetic foot wound Leukocytosis stable Most recent blood culture 03/09 NGTD - PICC today per ID IV invanz per ID x 2 weeks Vac does not need to be changed until discharge Continue stump protector Continue PT Appreciate hospitalist management of comorbidities and ID management of IV antibiotics S: No complaints this am. O: Lying in bed, comfortable, no acute distress No increased work of breathing Right stump wound VAC intact. stump protector in place Left heel dressing intact 03/14/16 12:21 Objective: Vital Signs Temp Pulse Resp BP Pulse Ox 36.4 C 80 22 H 117/68 99 03/13/16 07:17 03/13/16 07:17 03/13/16 07:17 03/13/16 07:17 03/13/16 07:17 Microbiology 03/07/16 18:05 Blood Culture - Final Blood Laboratory Results 03/13/16 04:42 03/13/16 04:42 03/12/16 03/13/16 03/14/16 05:59 05:59 05:59 Intake Total 300 880 Output Total 1975 2225 Balance -1675 -1345 PT 24.4 SEC (12.0-15.0) H 03/13/16 04:42 INR 2.18 (0.83-1.16) H 03/13/16 04:42 ICD10 Worksheet Patient Problems: Problems Problem Status Diagnosed CAD (coronary artery disease) Acute CVA (cerebral vascular accident) Acute Diabetes Acute Failure to thrive Acute Hypertension Acute Right foot infection Acute Acute kidney injury Acute Congestive heart failure (CHF) Acute Hyperkalemia Acute Hyponatremia Acute Malaise and fatigue Acute Severe sepsis Acute Supratherapeutic INR Acute Transient hypotension Acute
[2016-03-13] MEDS: INSULIN LISPRO 100 UNIT/ML SC SCH ×4 (09:12→21:32)
[2016-03-13] MEDS: GABAPENTIN 100 MG CAP PO SCH ×2 (09:49→17:23)
[2016-03-13] MEDS: METOPROLOL SUCCINATE XR 50 MG TAB PO SCH (09:50)
[2016-03-13] MEDS: DILTIAZEM SR 90 MG CAP PO SCH (09:50)
[2016-03-13] MEDS: FERROUS SULFATE 325 MG TAB PO SCH (09:51)
[2016-03-13] MEDS: CHOLECALCIFEROL VIT D3 1,000 UNITS TAB PO SCH ×2 (09:51→21:35)
[2016-03-13] MEDS: OMEGA-3 FATTY ACIDS 1,000 MG CAP PO SCH ×2 (09:51→21:36)
[2016-03-13] MEDS: ERTAPENEM 1 GM in NS 100 ML IV SCH (09:51)
[2016-03-13] MEDS: POLYETHYLENE GLYCOL 3350 17 GM PKT PO SCH (09:52)
[2016-03-13] MEDS: DIGOXIN 125 MCG TAB PO SCH (09:55)
[2016-03-13] MEDS: ACETAMINOPHEN 500 MG TAB PO PRN ×2 (09:55→21:31)
--- NOTE | 2016-03-13 10:10 | PCMIDPN ---
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 Patient with persistent leukocytosis but clinically improved, continue to monitor. Will try to examine wound tomorrow with wound care team # Gemella bacteremia secondary to right lower extremity infection --plan 2 total weeks ertapenem, stop date 03/21/2016. Creatinine normal --placing PICC line for therapy # left heel pressure ulcer: Requested wound Care to evaluate microbiology 03/09 blood culture 1 set no growth so far 03/07 blood cultures 02/12 anaerobic gram-negative dale medications ertapenem 1 g IV daily, start 03/07, # 7 03/13/16 10:13 Subjective: patient has some pain in the right stump. Concerned about developing gangrene in the left foot Objective: Vital Signs Temp Pulse Resp BP Pulse Ox 36.4 C 80 22 H 117/68 99 03/13/16 07:17 03/13/16 07:17 03/13/16 07:17 03/13/16 07:17 03/13/16 07:17 Microbiology 03/07/16 18:05 Blood Culture - Final Blood Laboratory Results 03/13/16 04:42 03/13/16 04:42 03/12/16 03/13/16 03/14/16 05:59 05:59 05:59 Intake Total 300 880 440 Output Total 1975 2225 Balance -1675 -1345 440 - Physical Exam General Appearance: alert, no apparent distress EENT: pale conjunctiva, dry mucous membranes Respiratory: lungs clear Neck: supple Cardiac/Chest: regular rate, rhythm, systolic murmur Extremities: necrosis ( left heel with pressure ulcer that is black), other ( right BKA with wound VAC in place, no cellulitis) Abdomen: non-tender, soft Skin: No rash Neuro/Psych: alert, normal mood/affect, oriented x 3 ICD10 Worksheet Patient Problems: Problems Problem Status Diagnosed CAD (coronary artery disease) Acute CVA (cerebral vascular accident) Acute Diabetes Acute Failure to thrive Acute Hypertension Acute Right foot infection Acute Acute kidney injury Acute Congestive heart failure (CHF) Acute Hyperkalemia Acute Hyponatremia Acute Malaise and fatigue Acute Severe sepsis Acute Supratherapeutic INR Acute Transient hypotension Acute
--- NOTE | 2016-03-13 10:57 | HOSPPROG ---
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- s/p bka on erta vanc dc'd atrial fibrillation- currently rate controlled in the 70s- INR 2.69 anticoagulated warfarin restarted at lower dose today acute on chronic kidney injury- creatinine 1.3-> 1.1 with IV fluids overnight - oxygen saturations 100% on 2 L appears euvolemic follow daily diabetes mellitus- blood sugars improved w addition of hs lantus and change to 'very high' insulin ss hypoglycemic this AM dc pm lantus constipation: add miralax still no bm kayexalate X 1 given concomitant hyperkalemia chronic hyponatremia- sodium 132 this morning - baseline continue to monitor hyperkalemia- continues to have high K is on ROSALINDA-I (low dose) as well as BB, both of which can cause hyperkalemia hold ROSALINDA dose of kayex today no events on tele (interp by me) diet diabetic prophylaxis anticoagulated follow inr daily disposition- greater than 2 midnights as requiring surgical debridement for worsening diabetic foot wound Subjective: picc line today. afebrile. moved bowels Objective: Vital Signs Temp Pulse Resp BP Pulse Ox 36.4 C 80 22 H 117/68 99 03/13/16 07:17 03/13/16 07:17 03/13/16 07:17 03/13/16 07:17 03/13/16 07:17 Microbiology 03/07/16 18:05 Blood Culture - Final Blood Laboratory Results 03/13/16 04:42 03/13/16 04:42 03/12/16 03/13/16 03/14/16 05:59 05:59 05:59 Intake Total 300 880 440 Output Total 1975 2225 Balance -1675 -1345 440 PT 24.4 SEC (12.0-15.0) H 03/13/16 04:42 INR 2.18 (0.83-1.16) H 03/13/16 04:42 - Physical Exam Constitutional: no apparent distress, appears nourished Eyes: PERRL, anicteric sclera Ears, Nose, Mouth, Throat: moist mucous membranes, hearing normal Cardiovascular: regular rate and rhythym, no murmur, rub, or gallop, No systolic murmur Respiratory: no respiratory distress, no rales or rhonchi Gastrointestinal: normoactive bowel sounds, soft, non-tender abdomen Genitourinary: No haskins in urethra Skin: warm, normal color Musculoskeletal: other (R BKA) Neurologic: AAOx3, sensation intact bilaterally Psychiatric: interacting appropriately ICD10 Worksheet Patient Problems: Problems Problem Status Diagnosed CAD (coronary artery disease) Acute CVA (cerebral vascular accident) Acute Diabetes Acute Failure to thrive Acute Hypertension Acute Right foot infection Acute Acute kidney injury Acute Congestive heart failure (CHF) Acute Hyperkalemia Acute Hyponatremia Acute Malaise and fatigue Acute Severe sepsis Acute Supratherapeutic INR Acute Transient hypotension Acute
--- NOTE | 2016-03-13 11:26 | GOP ---
[f rep st] OPERATIVE REPORT DATE OF OPERATION: 03/08/2016 SURGEON: Pat De Los Santos MD ANESTHESIA: General. ANESTHESIOLOGIST: Dr. Surinder Rivas. PREOPERATIVE DIAGNOSIS: Gangrene of the right foot. POSTOPERATIVE DIAGNOSIS: Gangrene of the right foot. PROCEDURE PERFORMED: Right [id number] amputation. FINDINGS: gangrene on his foot SPECIMENS: Lower leg. ESTIMATED BLOOD LOSS: 100 cc. INDICATIONS: Jared Dumont is a 80-year-old man with diabetes, who underwent debridement and attempt at limb salvage. He was doing well last week, but then re-presented with purulent drainage from his foot and air in the tissues. DESCRIPTION OF PROCEDURE: Jared was brought into the operating room, placed supine on the table, and general anesthesia was administered. His right leg was prepped and draped in the usual sterile fashion. Due to his ACD, I only used bipolar and Harmonic through the case. I marked where I would be performing my incision. I used a knife to create an incision approximately 12 cm below the tibial tuberosity extending medially and laterally toward the edges of the gastrocnemius muscle. It then extended distally on either side parallel for approximately another 12 cm, creating a posterior flap. The skin and subcutaneous tissues were incised down to the fascia. Hemostasis was achieved with the Harmonic and bipolar. The saphenous veins were ligated with the Harmonic. The fascia in the muscles were divided using a combination of sharp and the Harmonic scalpel. The muscles in the anterior and lateral compartment were divided, exposing the anterior tibial vessel which was ligated with the Harmonic scalpel. The interosseous membrane was incised. The tibial periosteum was incised circumferentially. I used a periosteal elevator and elevated the periosteum off of the tibia. I then transected it with a saw approximately 2 cm proximal to the skin incision. The fibula was exposed, dissected circumferentially and transected with a saw. The amputation was completed, transecting the soleus muscle obliquely and the gastrocnemius muscle at the same level as the posterior flap. Bleeding soleal veins and posterior tibial veins and peroneal vessels were controlled with the Harmonic. I then filed the tibia and the fibula, eliminating bony prominences. The fascia of the anterior and posterior muscle flaps was reapproximated with interrupted 0 Vicryl in 2 layers. The skin was reapproximated with 2-0 nylon and keri. An incisional wound VAC was placed. He was awakened in the operating room, extubated, transferred to PACU in stable condition. /[id number]/MODL MTDD
[2016-03-13] MEDS: INSULIN GLARGINE 100 UNITS/ML SYRINGE SC SCH (12:46)
--- NOTE | 2016-03-13 13:34 | IR ---
Imaging Guided Peripherally Inserted Central Catheter History: Infection of stump of lower extremity amputation. Technique: Following informed consent, the right arm was prepped and draped in sterile fashion. All e lements of maximal sterile barrier technique including cap, mask, sterile gown, sterile gloves, large sterile sheet, hand hygiene, and 2% chlorhexidine for cutaneous antisepsis, followed. Ultrasound tra nsducer was placed in sterile sleeve and sterile coupling gel was used. Ultrasound evaluation of pote ntial access sites was performed. After successfully identifying a patent vessel of adequate size, 1% Xylocaine was used for local anesthetic. Ultrasound guidance was used to puncture the basilic vein with a 21-gauge needle. 0.018 measuring wire was passed centrally under fluoroscopic control. A skin rashida with scalpel blade was followed by removing the access needle. A 4.5 Wallisian peel-away sheath was followed by a 4 Wallisian single-lumen central catheter, trimmed to 39 cm length. The tip of the cathet er was positioned centrally and the guidewire removed. AP fluoroscopic spot image was obtained in ins piration. The catheter irrigated easily. The hub of the catheter was secured to the skin using a Stat Lock adhesive device, and a sterile dressing was applied. Fluoroscopy time in minutes: 0.1 . Estimated exposure in mGy: 2 . Findings: The tip of the central catheter terminates at the junction of the superior vena cava and th e right atrium. Triple chamber left subclavian pacemaker is present. Impression: 4 Wallisian single-lumen central catheter peripherally inserted central catheter is ready to use. - - - - - - - - - - - - - - - - - - - - - - - - - - - - - - - - - - - - - - - - - (Cross-cutting measures: Current medications were listed in the medical record, including all known prescriptions, [id number] medications, herbal medications, and nutritional supplements. The pat ient does not smoke. )
[2016-03-13] MEDS: WARFARIN SODIUM 4 MG TAB PO SCH (17:23)
[2016-03-13] MEDS: ATORVASTATIN CALCIUM 20 MG TAB PO SCH (21:35)
[2016-03-13] MEDS: GABAPENTIN 300 MG CAP PO SCH (21:35)
[2016-03-13] MEDS: ASPIRIN 81 MG CHEWABLE TAB PO SCH (21:35)
[2016-03-13] MEDS: oxyCODONE IR 5 MG TAB PO PRN (23:49)
[2016-03-14 06:10] LABS: ADD DIFF? YES; ADD MORPH? NO; ADD SCAN? NO; ATYPICAL LYMPHOCYTE FLAG 20 (0-99); FRAGMENT RBC FLAG 0 (0-99); HEMATOCRIT 26.4 % (40.0-51.0); HEMOGLOBIN 8.7 g/dL (13.7-17.5); LEFT SHIFT FLG 40 (0-99); LIPEMIA HEMOLYSIS FLAG 80 (0-99); MEAN CELL VOLUME 84.9 fL (81.5-99.8); MEAN PLATELET VOLUME 9.1 fL (8.7-11.7); PLATELET CLUMPS FLAG 0 (0-99); PLATELET COUNT 219 10^3/uL (150-400); RED BLOOD CELL COUNT 3.11 10^6/uL (4.40-6.38); RED CELL DISTRIBUTION WIDTH 15.2 % (11.5-15.2)
[2016-03-14 06:29] LABS: ANION GAP 2 mEq/L (8-16); CALCIUM 7.8 mg/dL (8.5-10.4); CARBON DIOXIDE 30 mEq/l (22-31); CHLORIDE 104 mEq/L (97-110); GLOMERULAR FILTRATION RATE > 60; GLUCOSE 93 mg/dL (70-100); POTASSIUM 5.7 mEq/L (3.5-5.2); SODIUM 136 mEq/L (134-144)
[2016-03-14 06:42] LABS: LARGE PLATELETS PRESENT; MICROCYTES 1+; PLATELET ESTIMATE ADEQUATE (ADEQ); SCHISTOCYTES 1+
[2016-03-14 06:43] LABS: INR 2.07 (0.83-1.16); PROTIME(PATIENT) 23.4 SEC (12.0-15.0)
--- NOTE | 2016-03-14 08:58 | HOSPPROG ---
Hospitalist Progress Note Assessment/Plan: #Hyperkalemia #Deuce bacteremia:due to foot infection/gangrene -s/p amputation 03/13. Wound vac replacement 1 week post-op; if still here tomorrow, surgery will change out tomorrow -Invanz through 03/21, PICC in place #Left heel ulcer: wound care #Constipation: bowel reg #Leukocytosis: resolved #Uncontrolled DM: Glargine 25 + SSI #Permanent atrial fibrillation -rate controlled on digoxin/Dilt. INR at goal #Deconditioning: PT/OT #Normocytic anemia: H/H stable #CKD: Cr stable #HLD: statin #CAD: BB, statin, ASA #Diet: diabetic #DVT ppx: on coumadin #Disp: SNF placement pending. [employer] denied Inpatient rehab. I have a call out for appeal Subjective: no pain Objective: Vital Signs Temp Pulse Resp BP Pulse Ox 36.3 C 73 17 112/58 L 96 03/14/16 07:53 03/14/16 07:53 03/14/16 07:53 03/14/16 07:53 03/14/16 07:53 Microbiology 03/07/16 18:05 Blood Culture - Final Blood Laboratory Results 03/14/16 05:35 03/14/16 05:35 03/13/16 03/14/16 03/15/16 05:59 05:59 05:59 Intake Total 880 2550 Output Total 2225 2500 Balance -1345 50 PT 23.4 SEC (12.0-15.0) H 03/14/16 05:35 INR 2.07 (0.83-1.16) H 03/14/16 05:35 - Physical Exam Constitutional: no apparent distress, chronically ill appearing Eyes: PERRL, pale conjunctiva Ears, Nose, Mouth, Throat: moist mucous membranes, hearing normal Cardiovascular: irregularly irregular Respiratory: no respiratory distress, no rales or rhonchi Gastrointestinal: normoactive bowel sounds, soft, non-tender abdomen Genitourinary: other (condom catheter) Skin: warm, normal color Musculoskeletal: generalized weakness, other (right BKA. Wound vac. Left heel ulcer with eschar) Neurologic: AAOx3 Psychiatric: interacting appropriately ICD10 Worksheet Patient Problems: Problems Problem Status Diagnosed CAD (coronary artery disease) Acute CVA (cerebral vascular accident) Acute Diabetes Acute Failure to thrive Acute Hypertension Acute Right foot infection Acute Acute kidney injury Acute Congestive heart failure (CHF) Acute Hyperkalemia Acute Hyponatremia Acute Malaise and fatigue Acute Severe sepsis Acute Supratherapeutic INR Acute Transient hypotension Acute
[2016-03-14] MEDS: INSULIN LISPRO 100 UNIT/ML SC SCH ×4 (09:56→22:31)
[2016-03-14] MEDS: INSULIN GLARGINE 100 UNITS/ML SYRINGE SC SCH (10:02)
[2016-03-14] MEDS: FERROUS SULFATE 325 MG TAB PO SCH (10:03)
[2016-03-14] MEDS: GABAPENTIN 100 MG CAP PO SCH ×2 (10:03→18:03)
[2016-03-14] MEDS: CHOLECALCIFEROL VIT D3 1,000 UNITS TAB PO SCH ×2 (10:03→20:37)
[2016-03-14] MEDS: DILTIAZEM SR 90 MG CAP PO SCH (10:03)
[2016-03-14] MEDS: DIGOXIN 125 MCG TAB PO SCH (10:03)
[2016-03-14] MEDS: ERTAPENEM 1 GM in NS 100 ML IV SCH (10:04)
[2016-03-14] MEDS: OMEGA-3 FATTY ACIDS 1,000 MG CAP PO SCH ×2 (10:09→20:33)
[2016-03-14] MEDS: METOPROLOL SUCCINATE XR 50 MG TAB PO SCH (10:09)
[2016-03-14] MEDS: POLYETHYLENE GLYCOL 3350 17 GM PKT PO SCH (10:36)
--- NOTE | 2016-03-14 10:47 | PCMIDPN ---
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 WBC continues to trend down. Wound VAC change 1 week post op # Gemella bacteremia secondary to right lower extremity infection, 03/09 blood cx NGTD --plan 2 total weeks ertapenem, stop date 03/21/2016. Creatinine normal --call with additional questions, specific ID follow up not needed # left heel pressure ulcer microbiology 03/09 blood culture 1 set no growth so far 03/07 blood cultures / anaerobic gram-negative dale medications ertapenem 1 g IV daily, start 03/07, # 09/[address] Butcher, requested RYLAND haskins if possible Subjective: no pain no diarrhea appetite low Objective: Vital Signs Temp Pulse Resp BP Pulse Ox 36.3 C 73 17 112/58 L 96 03/14/16 07:53 03/14/16 07:53 03/14/16 07:53 03/14/16 07:53 03/14/16 07:53 Microbiology 03/07/16 18:00 Blood Culture - Final Blood Gemella Morbillorum Blood Panel (PCR) - Final No Organisms Detected 03/07/16 18:05 Blood Culture - Final Blood Laboratory Results 03/14/16 05:35 03/14/16 05:35 03/13/16 03/14/16 03/15/16 05:59 05:59 05:59 Intake Total 880 2550 Output Total 2225 2500 Balance -1345 50 General Appearance: alert, no apparent distress EENT: pale conjunctiva, dry mucous membranes Respiratory: lungs clear Neck: supple Cardiac/Chest: regular rate, rhythm, 3/6 systolic murmur Extremities: necrosis - left heel with pressure ulcer that is black, right BKA with wound VAC in place, no cellulitis Abdomen: non-tender, soft Skin: No rash Neuro/Psych: alert, normal mood/affect, oriented x 3 ICD10 Worksheet Patient Problems: Problems Problem Status Diagnosed CAD (coronary artery disease) Acute CVA (cerebral vascular accident) Acute Diabetes Acute Failure to thrive Acute Hypertension Acute Right foot infection Acute Acute kidney injury Acute Congestive heart failure (CHF) Acute Hyperkalemia Acute Hyponatremia Acute Malaise and fatigue Acute Severe sepsis Acute Supratherapeutic INR Acute Transient hypotension Acute
--- NOTE | 2016-03-14 10:48 | PDIAF ---
- Diagnosis Diagnosis: Gamella bacteremia, R foot gangrene s/p BKA Code Status: Full Code - Medication Management Discharge Medications: Medications to Continue on Transfer Atorvastatin Calcium [Lipitor 20 mg (*)] 20 mg PO HS 02/08/15 [Last Taken ] Digoxin [Lanoxin 0.125 mg] 0.125 mg PO EVERY OTHER DAY 02/08/15 [Last Taken 07/27] Acetaminophen [Tylenol 325mg (*)] 650 mg PO Q4 PRN #0 tab 02/19/15 [Last Taken 12/27/15] Aspirin [Aspirin 81mg (*)] 81 mg PO HS #0 tab 02/19/15 [Last Taken 03/07/16] Cholecalciferol Vit D3 [Vitamin D3 (*)] 1,000 units PO BID 11/01/15 [Last Taken 12/28/15] Digoxin [Lanoxin 125 mcg (RX)] 250 mcg PO EVERY OTHER DAY 11/01/15 [Last Taken Unknown] Metoprolol Succinate Xr [Toprol Xl 50 mg (*)] 50 mg PO DAILY 11/01/15 [Last Taken Unknown] [place]-3 Fatty Acids [Fish Oil 1000 mg (*)] 1,000 mg PO BID 11/01/15 [Last Taken 12/28/15] Ferrous Sulfate [Ferrous Sulf 325 MG (*)] 325 mg PO DAILY #0 tab 01/12/16 [Last Taken Unknown] Insulin Glargine [Lantus 100 UNITS/ML (*)] 25 units SC DAILY #0 ml 01/12/16 [ Last Taken 03/06/16] Insulin Lispro [humALOG LISPRO 100 units/ml (*)] 0 unit SC ACHS #0 unit [Last Taken Unknown] Diltiazem Sr [Cardizem Sr] 1 cap PO DAILY 03/07/16 [Last Taken 03/07/16] Gabapentin [Gabapentin] 200 mg PO BIDMEAL 03/07/16 [Last Taken Unknown] Gabapentin [Neurontin 300 MG (*)] 300 mg PO HS 03/07/16 [Last Taken Unknown] Lisinopril [Zestril 2.5 mg (*)] 2.5 mg PO DAILY 03/07/16 [Last Taken Unknown] Metformin HCl [Metformin HCl ER] 500 mg PO DAILY PRN 03/07/16 [Last Taken Unknown] WARFARIN SODIUM [WARFARIN SODIUM] 6 mg PO HS 03/07/16 [Last Taken 03/06/16] [facility] Antibiotics: ertapenem 1gm IV daily [facility] Antibiotic Stop Date: 03/21/16 Discharge Medications: Refer to the Discharge Home Medication list for PRN reason. PICC Care - Routine: Yes - Labs/Radiology CBC Date: 03/19/16 CMP Date: 03/19/16 Call or Fax Lab and Imaging Results to: [facility] [phone] - Follow Up Care Current Providers and Referrals: Angel Medrano MD [Primary Care Provider] - As per Instructions
[2016-03-14] MEDS ORDERED: SODIUM POLY SULF 15 GM/60 ML BOTTLE PO ONE (12:23)
--- NOTE | 2016-03-14 12:23 | SOAPPROG ---
SOAP Progress Note Assessment/Plan: Assessment: 80yo M POD#6 s/p R BKA for worsening diabetic foot wound Leukocytosis stable Most recent blood culture 03/09 NGTD - PICC today per ID IV invanz per ID x 2 weeks Vac does not need to be changed until discharge Continue stump protector Continue PT Appreciate hospitalist management of comorbidities and ID management of IV antibiotics OK to d/c from surgery standpoint. F/u with Emily Quispe PA-C in 2 weeks S: No complaints this am. O: Lying in bed, comfortable, no acute distress No increased work of breathing Right stump wound VAC intact. stump protector in place Objective: Vital Signs Temp Pulse Resp BP Pulse Ox 36.4 C 72 16 113/63 97 03/14/16 11:53 03/14/16 11:53 03/14/16 11:53 03/14/16 11:53 03/14/16 11:53 Microbiology 03/07/16 18:00 Blood Culture - Final Blood Gemella Morbillorum Blood Panel (PCR) - Final No Organisms Detected 03/07/16 18:05 Blood Culture - Final Blood Laboratory Results 03/14/16 05:35 03/14/16 11:25 03/13/16 03/14/16 03/15/16 05:59 05:59 05:59 Intake Total 880 2550 Output Total 2225 2500 Balance -1345 50 PT 23.4 SEC (12.0-15.0) H 03/14/16 05:35 INR 2.07 (0.83-1.16) H 03/14/16 05:35 ICD10 Worksheet Patient Problems: Problems Problem Status Diagnosed CAD (coronary artery disease) Acute CVA (cerebral vascular accident) Acute Diabetes Acute Failure to thrive Acute Hypertension Acute Right foot infection Acute Acute kidney injury Acute Congestive heart failure (CHF) Acute Hyperkalemia Acute Hyponatremia Acute Malaise and fatigue Acute Severe sepsis Acute Supratherapeutic INR Acute Transient hypotension Acute
[2016-03-14] MEDS ORDERED: LACTULOSE 20 GM/30 ML UDCUP PO ONE ×2 (12:30→17:42)
--- NOTE | 2016-03-14 12:40 | CPEKG ---
Heart Rate: 67 RR Interval: 896 QRSD Interval: 116 QT Interval: 416 QTC Interval: 439 QRS [place]: 262 T Wave [place]: 78 EKG Severity - ABNORMAL ECG - EKG Impression: AFIB/FLUTTER AND VENTRICULAR-PACED RHYTHM Electronically Signed By: Carolina Steinberg 14-Mar-2016 14:34:42
[2016-03-14] MEDS ORDERED: WARFARIN SODIUM 3 MG TAB PO ONE (16:00)
[2016-03-14 17:32] LABS: COLOR YELLOW; LEUKOCYTE ESTERASE,URINE NEGATIVE (NEGATIVE); NITRITE,URINE NEGATIVE (NEGATIVE)
[2016-03-14] MEDS: NS 1,000 ML IV SCH (18:07)
[2016-03-14 20:14] LABS: RANDOM URINE POTASSIUM 36.9 mEq/L (0.5-35.0)
[2016-03-14] MEDS: ATORVASTATIN CALCIUM 20 MG TAB PO SCH (20:33)
[2016-03-14] MEDS: ASPIRIN 81 MG CHEWABLE TAB PO SCH (20:33)
[2016-03-14] MEDS: GABAPENTIN 300 MG CAP PO SCH (20:33)
[2016-03-14 21:28] LABS: ANION GAP 5 mEq/L (8-16); CARBON DIOXIDE 28 mEq/l (22-31); CHLORIDE 102 mEq/L (97-110); GLOMERULAR FILTRATION RATE > 60; GLUCOSE 192 mg/dL (70-100); POTASSIUM 5.3 mEq/L (3.5-5.2); SODIUM 135 mEq/L (134-144)
[2016-03-15 02:25] LABS: ANION GAP 6 mEq/L (8-16); CALCIUM 7.9 mg/dL (8.5-10.4); CARBON DIOXIDE 26 mEq/l (22-31); CHLORIDE 105 mEq/L (97-110); GLOMERULAR FILTRATION RATE > 60; GLUCOSE 138 mg/dL (70-100); POTASSIUM 5.2 mEq/L (3.5-5.2); SODIUM 137 mEq/L (134-144)
[2016-03-15 06:04] LABS: ADD DIFF? YES; ADD MORPH? NO; ADD SCAN? NO; ATYPICAL LYMPHOCYTE FLAG 20 (0-99); FRAGMENT RBC FLAG 0 (0-99); HEMATOCRIT 24.3 % (40.0-51.0); HEMOGLOBIN 8.1 g/dL (13.7-17.5); LEFT SHIFT FLG 30 (0-99); LIPEMIA HEMOLYSIS FLAG 80 (0-99); MEAN CELL HEMOGLOBIN 28.5 pg (27.9-34.1); MEAN CELL HEMOGLOBIN CONCENTR. 33.3 g/dL (32.4-36.7); MEAN CELL VOLUME 85.6 fL (81.5-99.8); MEAN PLATELET VOLUME 9.2 fL (8.7-11.7); PLATELET CLUMPS FLAG 0 (0-99); PLATELET COUNT 187 10^3/uL (150-400); RED BLOOD CELL COUNT 2.84 10^6/uL (4.40-6.38); RED CELL DISTRIBUTION WIDTH 15.4 % (11.5-15.2)
[2016-03-15 06:14] LABS: INR 1.85 (0.83-1.16); PROTIME(PATIENT) 21.4 SEC (12.0-15.0)
[2016-03-15 06:25] LABS: ANION GAP 6 mEq/L (8-16); CALCIUM 7.3 mg/dL (8.5-10.4); CARBON DIOXIDE 27 mEq/l (22-31); CHLORIDE 105 mEq/L (97-110); CREATININE 0.9 mg/dL (0.7-1.3); GLOMERULAR FILTRATION RATE > 60; GLUCOSE 72 mg/dL (70-100); POTASSIUM 4.9 mEq/L (3.5-5.2); SODIUM 138 mEq/L (134-144)
[2016-03-15 06:49] LABS: POLYCHROMASIA 1+
[2016-03-15 06:50] LABS: PLATELET ESTIMATE ADEQUATE (ADEQ)
[2016-03-15 06:53] LABS: CORTISOL-AM 13.2 ug/dL (4.5-22.7)
--- NOTE | 2016-03-15 08:38 | SOAPPROG ---
SOAP Progress Note Assessment/Plan: Assessment: Assessment: 80yo M POD#7 s/p R BKA for worsening diabetic foot wound/gangrene IV invanz per ID x 2 weeks Remove Vac on 03/15/2016 if discharged. If Not, remove vac on 03/16/2016 Continue stump protector Continue PT Appreciate hospitalist management of comorbidities and ID management of IV antibiotics OK to d/c from surgery standpoint. remove sutures (not keri) on 03/22/2016 at facility F/u with Emily Quispe PA-C on 03/27 or 03/29. Call to make an appointment. Info in dc section and interagency S: No complaints this am. O: Lying in bed, comfortable, no acute distress No increased work of breathing Right stump wound VAC intact. stump protector in place Plan: 03/08/16 08:19 03/15/16 08:37 03/15/16 08:39 Objective: Vital Signs Temp Pulse Resp BP Pulse Ox 36.5 C 79 18 118/61 91 L 03/15/16 04:00 03/15/16 04:00 03/15/16 04:00 03/15/16 04:00 03/15/16 04:00 Microbiology 03/09/16 12:30 Blood Culture - Final Blood 03/07/16 18:00 Blood Culture - Final Blood Gemella Morbillorum Blood Panel (PCR) - Final No Organisms Detected Laboratory Results 03/15/16 05:45 03/15/16 05:45 03/14/16 03/15/16 03/16/16 05:59 05:59 05:59 Intake Total 2550 1800 Output Total 2500 2200 Balance 50 -400 PT 21.4 SEC (12.0-15.0) H 03/15/16 05:45 INR 1.85 (0.83-1.16) H 03/15/16 05:45 ICD10 Worksheet Patient Problems: Problems Problem Status Diagnosed CAD (coronary artery disease) Acute CVA (cerebral vascular accident) Acute Diabetes Acute Failure to thrive Acute Hypertension Acute Right foot infection Acute Acute kidney injury Acute Congestive heart failure (CHF) Acute Hyperkalemia Acute Hyponatremia Acute Malaise and fatigue Acute Severe sepsis Acute Supratherapeutic INR Acute Transient hypotension Acute
[2016-03-15] MEDS: ERTAPENEM 1 GM in NS 100 ML IV SCH (08:52)
[2016-03-15] MEDS: DIGOXIN 125 MCG TAB PO SCH (08:54)
[2016-03-15] MEDS: METOPROLOL SUCCINATE XR 50 MG TAB PO SCH (08:54)
[2016-03-15] MEDS: GABAPENTIN 100 MG CAP PO SCH ×2 (08:54→17:25)
[2016-03-15] MEDS: DILTIAZEM SR 90 MG CAP PO SCH (08:55)
[2016-03-15] MEDS: CHOLECALCIFEROL VIT D3 1,000 UNITS TAB PO SCH ×2 (08:55→19:59)
[2016-03-15] MEDS: FERROUS SULFATE 325 MG TAB PO SCH (08:55)
[2016-03-15] MEDS: INSULIN GLARGINE 100 UNITS/ML SYRINGE SC SCH (08:55)
[2016-03-15] MEDS: INSULIN LISPRO 100 UNIT/ML SC SCH ×4 (08:55→22:35)
[2016-03-15] MEDS: OMEGA-3 FATTY ACIDS 1,000 MG CAP PO SCH ×2 (09:14→19:59)
[2016-03-15] MEDS: POLYETHYLENE GLYCOL 3350 17 GM PKT PO SCH (11:09)
--- NOTE | 2016-03-15 12:55 | HOSPPROG ---
Hospitalist Progress Note Assessment/Plan: #Hyperkalemia: resolved with BMs, IVFs. Stopped ACEI #Deuce bacteremia:due to foot infection/gangrene -s/p amputation 03/13. Wound vac replacement 1 week post-op; if still here tomorrow, surgery will change out tomorrow -Change to Unasyn for cost purposes at SNF. 03/21, PICC in place #Left heel ulcer: wound care #Constipation: bowel reg #Leukocytosis: resolved #Uncontrolled DM: Glargine 25 + SSI #Permanent atrial fibrillation -rate controlled on digoxin/Dilt. INR at goal #Deconditioning: PT/OT #Normocytic anemia: H/H stable #Sacral dermatitis: secondary to urinary incontinence, increased stooling past couple of days. Condom cath to prevent further breakdown #CKD: Cr stable #HLD: statin #CAD: BB, statin, ASA #Diet: diabetic #DVT ppx: on coumadin #Disp: SNF placement pending. [employer] denied Inpatient rehab despite my appeal. [facility] cannot take on another wound pt currently. SW contacting [facility] Subjective: no complaints overnight Objective: Vital Signs Temp Pulse Resp BP Pulse Ox 36.6 C 69 18 127/62 H 97 03/15/16 08:00 03/15/16 08:00 03/15/16 08:00 03/15/16 08:00 03/15/16 08:00 Microbiology 03/09/16 12:30 Blood Culture - Final Blood 03/07/16 18:00 Blood Culture - Final Blood Gemella Morbillorum Blood Panel (PCR) - Final No Organisms Detected Laboratory Results 03/15/16 05:45 03/15/16 05:45 03/14/16 03/15/16 03/16/16 05:59 05:59 05:59 Intake Total 2550 1800 Output Total 2500 2200 Balance 50 -400 PT 21.4 SEC (12.0-15.0) H 03/15/16 05:45 INR 1.85 (0.83-1.16) H 03/15/16 05:45 - Physical Exam Constitutional: no apparent distress, other (pale) Eyes: PERRL Ears, Nose, Mouth, Throat: moist mucous membranes, hearing normal Cardiovascular: regular rate and rhythym, no murmur, rub, or gallop Respiratory: no respiratory distress, no rales or rhonchi Gastrointestinal: normoactive bowel sounds, soft, non-tender abdomen Genitourinary: other (condom cath) Skin: warm, other (dermatitis over sacrum) Musculoskeletal: other (right BKA) Psychiatric: interacting appropriately ICD10 Worksheet Patient Problems: Problems Problem Status Diagnosed CAD (coronary artery disease) Acute CVA (cerebral vascular accident) Acute Diabetes Acute Failure to thrive Acute Hypertension Acute Right foot infection Acute Acute kidney injury Acute Congestive heart failure (CHF) Acute Hyperkalemia Acute Hyponatremia Acute Malaise and fatigue Acute Severe sepsis Acute Supratherapeutic INR Acute Transient hypotension Acute
[2016-03-15] MEDS: oxyCODONE IR 5 MG TAB PO PRN (14:38)
--- NOTE | 2016-03-15 15:19 | PDIAF ---
- Diagnosis Diagnosis: Gamella bacteremia, R foot gangrene s/p BKA Code Status: Full Code - Medication Management Discharge Medications: Medications to Continue on Transfer Atorvastatin Calcium [Lipitor 20 mg (*)] 20 mg PO HS 02/08/15 [Last Taken ] Digoxin [Lanoxin 0.125 mg] 0.125 mg PO EVERY OTHER DAY 02/08/15 [Last Taken 07/27] Acetaminophen [Tylenol 325mg (*)] 650 mg PO Q4 PRN #0 tab 02/19/15 [Last Taken 12/27/15] Aspirin [Aspirin 81mg (*)] 81 mg PO HS #0 tab 02/19/15 [Last Taken 03/07/16] Cholecalciferol Vit D3 [Vitamin D3 (*)] 1,000 units PO BID 11/01/15 [Last Taken 12/28/15] Digoxin [Lanoxin 125 mcg (RX)] 250 mcg PO EVERY OTHER DAY 11/01/15 [Last Taken Unknown] Metoprolol Succinate Xr [Toprol Xl 50 mg (*)] 50 mg PO DAILY 11/01/15 [Last Taken Unknown] [place]-3 Fatty Acids [Fish Oil 1000 mg (*)] 1,000 mg PO BID 11/01/15 [Last Taken 12/28/15] Ferrous Sulfate [Ferrous Sulf 325 MG (*)] 325 mg PO DAILY #0 tab 01/12/16 [Last Taken Unknown] Insulin Glargine [Lantus 100 UNITS/ML (*)] 25 units SC DAILY #0 ml 01/12/16 [ Last Taken 03/06/16] Insulin Lispro [humALOG LISPRO 100 units/ml (*)] 0 unit SC ACHS #0 unit [Last Taken Unknown] Diltiazem Sr [Cardizem Sr] 1 cap PO DAILY 03/07/16 [Last Taken 03/07/16] Gabapentin 200 mg PO BIDMEAL 03/07/16 [Last Taken Unknown] Gabapentin [Neurontin 300 MG (*)] 300 mg PO HS 03/07/16 [Last Taken Unknown] Metformin HCl [Metformin HCl ER] 500 mg PO DAILY PRN 03/07/16 [Last Taken Unknown] Ertapenem [INVanz] 1 gm IV DAILY #0 vial 03/15/16 [Last Taken Unknown] Ondansetron Odt [Zofran Odt 4 mg (*)] 4 mg PO Q4HRS PRN #0 tab 03/15/16 [Last Taken Unknown] Polyethylene Glycol 3350 [Miralax 17 gm (*)] 17 gm PO DAILY #0 pkt 03/15/16 [ Last Taken Unknown] Warfarin Sodium [Coumadin 5MG (*)] 5 mg PO DAILY16 #0 tab 03/15/16 [Last Taken Unknown] oxyCODONE IR [Oxycodone Ir (*)] 5 - 10 mg PO Q4HRS PRN #0 tab 03/15/16 [Last Taken Unknown] [facility] Antibiotics: unasyn 3gm IV [id number] Clinical Dermatologist Antibiotic Stop Date: 03/21/16 Discharge Medications: Refer to the Discharge Home Medication list for PRN reason. PICC Care - Routine: Yes - Labs/Radiology CBC Date: 03/19/16 CMP Date: 03/19/16 Call or Fax [phone] - Follow Up Care Current Providers and Referrals: Angel Medrano MD [Primary Care Provider] - As per Instructions Pat De Los Santos MD [Medical Doctor] - follow up in 2 weeks (Mar 27 or Mar 29)
--- NOTE | 2016-03-15 16:19 | WOCRNPDOC ---
WOCRN Advanced Assessment Note - Skin Integrity Problem, Advanced Assess Left Heel Pressure Injury Dressing Type: Open to Air Wound Bed Constitution: Stable Eschar Pressure Injury Stage: Unstageable Skin Integrity Problem Comment: Deep tissue injury turning to eschar. Betadine BID and offloading boot. Sacrum Pressure Injury Dressing Type: Allevyn Life (x2) Dressing Description: Clean/Dry, Intact Integumentary Issue Intervention: Dressing Removed Pressure Injury Stage: Deep Tissue Injury (DTI) Pressure Injury Present on Admit: No Skin Integrity Problem Comment: Deep tissue on sacrum non blanching, deep red and is a larger suface area than assessment on saturday. The non blanching area is surrounded by blanching erythema. Incontinence associated dermatitis throughout rest of buttocks also with increased erythema. Small partial thickness opening (friction related) on right buttock is unchanged since admission. Carolyne HUBBARD in room for care.
[2016-03-15] MEDS: WARFARIN SODIUM 5 MG TAB PO SCH (17:25)
[2016-03-15] MEDS: AMPICILLIN/SULBACTAM 3 GM in NS 100 ML IV SCH ×2 (18:27→23:53)
[2016-03-15] MEDS: NS 1,000 ML IV SCH (19:33)
[2016-03-15] MEDS: ATORVASTATIN CALCIUM 20 MG TAB PO SCH (20:00)
[2016-03-15] MEDS: ASPIRIN 81 MG CHEWABLE TAB PO SCH (20:00)
[2016-03-15] MEDS: GABAPENTIN 300 MG CAP PO SCH (20:00)
[2016-03-16] MEDS: NS 1,000 ML IV SCH (03:55)
[2016-03-16] MEDS: AMPICILLIN/SULBACTAM 3 GM in NS 100 ML IV SCH ×4 (05:27→23:49)
[2016-03-16] MEDS: INSULIN LISPRO 100 UNIT/ML SC SCH ×3 (08:00→19:17)
[2016-03-16] MEDS ORDERED: D50W 25 GM/50 ML SYR IVP PRN (08:36)
[2016-03-16] MEDS: OMEGA-3 FATTY ACIDS 1,000 MG CAP PO SCH ×2 (09:40→21:25)
[2016-03-16] MEDS: FERROUS SULFATE 325 MG TAB PO SCH (09:40)
[2016-03-16] MEDS: DIGOXIN 125 MCG TAB PO SCH (09:40)
[2016-03-16] MEDS: GABAPENTIN 100 MG CAP PO SCH ×2 (09:40→19:17)
[2016-03-16] MEDS: DILTIAZEM SR 90 MG CAP PO SCH (09:41)
[2016-03-16] MEDS: METOPROLOL SUCCINATE XR 50 MG TAB PO SCH (09:41)
[2016-03-16] MEDS: CHOLECALCIFEROL VIT D3 1,000 UNITS TAB PO SCH ×2 (09:41→21:25)
[2016-03-16 09:44] LABS: INR 2.1 (0.83-1.16); PROTIME(PATIENT) 23.7 SEC (12.0-15.0)
[2016-03-16] MEDS: INSULIN GLARGINE 100 UNITS/ML SYRINGE SC SCH (11:56)
--- NOTE | 2016-03-16 12:39 | HOSPPROG ---
Hospitalist Progress Note Assessment/Plan: #Symptomatic hypoglycemia: received 24U Lispro per scale. Vince #Hyperkalemia: resolved with BMs, IVFs. Stopped ACEI #Kyleea bacteremia:due to foot infection/gangrene -s/p amputation 03/13. Wound vac replacement 1 week post-op; if still here tomorrow, surgery will change out tomorrow -Change to Unasyn for cost purposes at SNF. 03/21, PICC in place #Left heel ulcer: wound care #Constipation: bowel reg #Leukocytosis: resolved #Uncontrolled DM: Glargine 25, decreased SSI #Permanent atrial fibrillation -rate controlled on digoxin/Dilt. INR at goal #Deconditioning: PT/OT #Normocytic anemia: H/H stable #Incontinence-related dermatitis: secondary to urinary incontinence, increased stooling past couple of days. Condom cath to prevent further breakdown. Present on admission #CKD: Cr stable #HLD: statin #CAD: BB, statin, ASA #Diet: diabetic #DVT ppx: on coumadin #Disp: SNF placement pending. [facility] denied Inpatient rehab despite my appeal. [facility] cannot take on another wound pt currently. SW contacting [facility] Subjective: dizzy this morning with glucose 66 Objective: Vital Signs Temp Pulse Resp BP Pulse Ox 37.0 C 69 18 112/62 100 03/16/16 08:00 03/16/16 08:00 03/16/16 08:00 03/16/16 08:00 03/16/16 08:00 Laboratory Results 03/15/16 05:45 03/15/16 05:45 03/15/16 03/16/16 03/17/16 05:59 05:59 05:59 Intake Total 1800 3080 Output Total 2200 1700 Balance -400 1380 PT 23.7 SEC (12.0-15.0) H 03/16/16 09:25 INR 2.10 (0.83-1.16) H 03/16/16 09:25 - Physical Exam Constitutional: chronically ill appearing Eyes: PERRL Ears, Nose, Mouth, Throat: moist mucous membranes Cardiovascular: regular rate and rhythym, no murmur, rub, or gallop Respiratory: no respiratory distress Gastrointestinal: normoactive bowel sounds Genitourinary: no bladder fullness Skin: other Musculoskeletal: full muscle strength (buttock with partial skin tear), other ( left heel ulcer with eschar) Neurologic: AAOx3 Psychiatric: interacting appropriately ICD10 Worksheet Patient Problems: Problems Problem Status Diagnosed CAD (coronary artery disease) Acute CVA (cerebral vascular accident) Acute Diabetes Acute Failure to thrive Acute Hypertension Acute Right foot infection Acute Acute kidney injury Acute Congestive heart failure (CHF) Acute Hyperkalemia Acute Hyponatremia Acute Malaise and fatigue Acute Severe sepsis Acute Supratherapeutic INR Acute Transient hypotension Acute
--- NOTE | 2016-03-16 13:47 | PDIAF ---
- Diagnosis Diagnosis: Gamella bacteremia, R foot gangrene s/p BKA Code Status: Full Code - Medication Management Discharge Medications: Medications to Continue on Transfer Atorvastatin Calcium [Lipitor 20 mg (*)] 20 mg PO HS 02/08/15 [Last Taken ] Digoxin [Lanoxin 0.125 mg] 0.125 mg PO EVERY OTHER DAY 02/08/15 [Last Taken 07/27] Acetaminophen [Tylenol 325mg (*)] 650 mg PO Q4 PRN #0 tab 02/19/15 [Last Taken 12/27/15] Aspirin [Aspirin 81mg (*)] 81 mg PO HS #0 tab 02/19/15 [Last Taken 03/07/16] Cholecalciferol Vit D3 [Vitamin D3 (*)] 1,000 units PO BID 11/01/15 [Last Taken 12/28/15] Digoxin [Lanoxin 125 mcg (RX)] 250 mcg PO EVERY OTHER DAY 11/01/15 [Last Taken Unknown] Metoprolol Succinate Xr [Toprol Xl 50 mg (*)] 50 mg PO DAILY 11/01/15 [Last Taken Unknown] [place]-3 Fatty Acids [Fish Oil 1000 mg (*)] 1,000 mg PO BID 11/01/15 [Last Taken 12/28/15] Ferrous Sulfate [Ferrous Sulf 325 MG (*)] 325 mg PO DAILY #0 tab 01/12/16 [Last Taken Unknown] Insulin Glargine [Lantus 100 UNITS/ML (*)] 25 units SC DAILY #0 ml 01/12/16 [ Last Taken 03/06/16] Insulin Lispro [humALOG LISPRO 100 units/ml (*)] 0 unit SC ACHS #0 unit [Last Taken Unknown] Diltiazem Sr [Cardizem Sr] 1 cap PO DAILY 03/07/16 [Last Taken 03/07/16] Gabapentin 200 mg PO BIDMEAL 03/07/16 [Last Taken Unknown] Gabapentin [Neurontin 300 MG (*)] 300 mg PO HS 03/07/16 [Last Taken Unknown] Metformin HCl [Metformin HCl ER] 500 mg PO DAILY PRN 03/07/16 [Last Taken Unknown] Ertapenem [INVanz] 1 gm IV DAILY #0 vial 03/15/16 [Last Taken Unknown] Ondansetron Odt [Zofran Odt 4 mg (*)] 4 mg PO Q4HRS PRN #0 tab 03/15/16 [Last Taken Unknown] Polyethylene Glycol 3350 [Miralax 17 gm (*)] 17 gm PO DAILY #0 pkt 03/15/16 [ Last Taken Unknown] Warfarin Sodium [Coumadin 5MG (*)] 5 mg PO DAILY16 #0 tab 03/15/16 [Last Taken Unknown] oxyCODONE IR [Oxycodone Ir (*)] 5 - 10 mg PO Q4HRS PRN #0 tab 03/15/16 [Last Taken Unknown] Care Home Antibiotics: unasyn 3gm IV [id number] Neon Sign Servicer Antibiotic Stop Date: 03/21/16 Discharge Medications: Refer to the Discharge Home Medication list for PRN reason. PICC Care - Routine: Yes - Orders Services needed: Registered Nurse, Certified Dental Surgery Doctor, Physical Therapy, Occupational Therapy Diet Recommendation: cardiac -low fat low salt - Labs/Radiology CBC Date: 03/19/16 CMP Date: 03/19/16 PT/INR Date: 03/17/16 [facility] or Fax [phone] - Follow Up Care Current Providers and Referrals: Angel Medrano MD [Primary Care Provider] - As per Instructions Pat De Los Santos MD [Medical Doctor] - follow up in 2 weeks (Mar 27 or Mar 29)
--- NOTE | 2016-03-16 16:53 | SOAPPROG ---
SOAP Progress Note Assessment/Plan: Assessment: Assessment: 80yo M POD#7 s/p R BKA for worsening diabetic foot wound/gangrene IV invanz per ID x 2 weeks Removed Vac Continue stump protector Continue PT Appreciate hospitalist management of comorbidities and ID management of IV antibiotics OK to d/c from surgery standpoint. remove sutures (not keri) on 03/22/2016 at facility F/u with Emily Quispe PA-C on 03/27 or 03/29. Call to make an appointment. Info in dc section and interagency S: No complaints this am. O: Lying in bed, comfortable, no acute distress No increased work of breathing Incision cdi Plan: 03/08/16 08:19 03/15/16 08:37 03/15/16 08:39 03/16/16 16:53 Objective: Vital Signs Temp Pulse Resp BP Pulse Ox 36.8 C 71 17 127/67 H 94 03/16/16 16:00 03/16/16 16:00 03/16/16 16:00 03/16/16 16:00 03/16/16 16:00 Laboratory Results 03/15/16 05:45 03/15/16 05:45 03/15/16 03/16/16 03/17/16 05:59 05:59 05:59 Intake Total 1800 3080 Output Total 2200 1700 Balance -400 1380 PT 23.7 SEC (12.0-15.0) H 03/16/16 09:25 INR 2.10 (0.83-1.16) H 03/16/16 09:25 ICD10 Worksheet Patient Problems: Problems Problem Status Diagnosed CAD (coronary artery disease) Acute CVA (cerebral vascular accident) Acute Diabetes Acute Failure to thrive Acute Hypertension Acute Right foot infection Acute Acute kidney injury Acute Congestive heart failure (CHF) Acute Hyperkalemia Acute Hyponatremia Acute Malaise and fatigue Acute Severe sepsis Acute Supratherapeutic INR Acute Transient hypotension Acute
[2016-03-16] MEDS: POLYETHYLENE GLYCOL 3350 17 GM PKT PO SCH (18:48)
[2016-03-16] MEDS: WARFARIN SODIUM 5 MG TAB PO SCH (19:17)
[2016-03-16] MEDS: GABAPENTIN 300 MG CAP PO SCH (21:25)
[2016-03-16] MEDS: ASPIRIN 81 MG CHEWABLE TAB PO SCH (21:25)
[2016-03-16] MEDS: ATORVASTATIN CALCIUM 20 MG TAB PO SCH (21:25)
[2016-03-17 04:43] LABS: INR 2.38 (0.83-1.16); PROTIME(PATIENT) 26.2 SEC (12.0-15.0)
[2016-03-17] MEDS: AMPICILLIN/SULBACTAM 3 GM in NS 100 ML IV SCH ×2 (05:54→11:54)
[2016-03-17] MEDS: INSULIN LISPRO 100 UNIT/ML SC SCH ×2 (07:59→11:54)
[2016-03-17] MEDS: FERROUS SULFATE 325 MG TAB PO SCH (08:00)
[2016-03-17] MEDS: CHOLECALCIFEROL VIT D3 1,000 UNITS TAB PO SCH (08:00)
[2016-03-17] MEDS: DIGOXIN 125 MCG TAB PO SCH (08:00)
[2016-03-17] MEDS: METOPROLOL SUCCINATE XR 50 MG TAB PO SCH (08:00)
[2016-03-17] MEDS: GABAPENTIN 100 MG CAP PO SCH (08:04)
[2016-03-17] MEDS: DILTIAZEM SR 90 MG CAP PO SCH (08:04)
[2016-03-17] MEDS: OMEGA-3 FATTY ACIDS 1,000 MG CAP PO SCH (08:09)
[2016-03-17] MEDS: POLYETHYLENE GLYCOL 3350 17 GM PKT PO SCH (08:09)
[2016-03-17] MEDS: INSULIN GLARGINE 100 UNITS/ML SYRINGE SC SCH (08:10)
[2016-03-17 08:17] VITALS: O2SAT 96
[2016-03-17 11:51] VITALS: BP 121/60; PULSE 73; RESP 16; TEMP 97.4
--- NOTE | 2016-03-17 12:13 | PDIAF ---
- Diagnosis Diagnosis: Gamella bacteremia, R foot gangrene s/p BKA Code Status: Full Code - Medication Management Discharge Medications: Medications to Continue on Transfer Atorvastatin Calcium [Lipitor 20 mg (*)] 20 mg PO HS 02/08/15 [Last Taken ] Digoxin [Lanoxin 0.125 mg] 0.125 mg PO EVERY OTHER DAY 02/08/15 [Last Taken 07/27] Acetaminophen [Tylenol 325mg (*)] 650 mg PO Q4 PRN #0 tab 02/19/15 [Last Taken 12/27/15] Aspirin [Aspirin 81mg (*)] 81 mg PO HS #0 tab 02/19/15 [Last Taken 03/07/16] Cholecalciferol Vit D3 [Vitamin D3 (*)] 1,000 units PO BID 11/01/15 [Last Taken 12/28/15] Digoxin [Lanoxin 125 mcg (RX)] 250 mcg PO EVERY OTHER DAY 11/01/15 [Last Taken Unknown] Metoprolol Succinate Xr [Toprol Xl 50 mg (*)] 50 mg PO DAILY 11/01/15 [Last Taken Unknown] [place]-3 Fatty Acids [Fish Oil 1000 mg (*)] 1,000 mg PO BID 11/01/15 [Last Taken 12/28/15] Ferrous Sulfate [Ferrous Sulf 325 MG (*)] 325 mg PO DAILY #0 tab 01/12/16 [Last Taken Unknown] Insulin Glargine [Lantus 100 UNITS/ML (*)] 25 units SC DAILY #0 ml 01/12/16 [ Last Taken 03/06/16] Insulin Lispro [humALOG LISPRO 100 units/ml (*)] 0 unit SC ACHS #0 unit [Last Taken Unknown] Diltiazem Sr [Cardizem Sr] 1 cap PO DAILY 03/07/16 [Last Taken 03/07/16] Gabapentin 200 mg PO BIDMEAL 03/07/16 [Last Taken Unknown] Gabapentin [Neurontin 300 MG (*)] 300 mg PO HS 03/07/16 [Last Taken Unknown] Metformin HCl [Metformin HCl ER] 500 mg PO DAILY PRN 03/07/16 [Last Taken Unknown] Ertapenem [INVanz] 1 gm IV DAILY #0 vial 03/15/16 [Last Taken Unknown] Ondansetron Odt [Zofran Odt 4 mg (*)] 4 mg PO Q4HRS PRN #0 tab 03/15/16 [Last Taken Unknown] Polyethylene Glycol 3350 [Miralax 17 gm (*)] 17 gm PO DAILY #0 pkt 03/15/16 [ Last Taken Unknown] Warfarin Sodium [Coumadin 5MG (*)] 5 mg PO DAILY16 #0 tab 03/15/16 [Last Taken Unknown] oxyCODONE IR [Oxycodone Ir (*)] 5 - 10 mg PO Q4HRS PRN #0 tab 03/15/16 [Last Taken Unknown] Skilled Nursing Antibiotics: unasyn 3gm IV [id number] [place] [employer] Antibiotic Stop Date: 03/21/16 Discharge Medications: Refer to the Discharge Home Medication list for PRN reason. PICC Care - Routine: Yes - Orders Services needed: Registered Nurse, Certified Surface Lay Out Technician, Physical Therapy, Occupational Therapy Diet Recommendation: cardiac -low fat low salt, ADA 2000 consistent carb Diet Texture: Regular Texture Diet - Labs/Radiology CBC Date: 03/19/16 CMP Date: 03/19/16 PT/INR Date: 03/18/16 Call [facility] Fax [phone] - Follow Up Care Current Providers and Referrals: Angel Medrano MD [Primary Care Provider] - As per Instructions Pat De Los Santos MD [Medical Doctor] - follow up in 2 weeks (Mar 27 or Mar 29)
[2016-03-17 13:01] LABS: ANION GAP 5 mEq/L (8-16); CALCIUM 7.6 mg/dL (8.5-10.4); CARBON DIOXIDE 26 mEq/l (22-31); CHLORIDE 104 mEq/L (97-110); GLOMERULAR FILTRATION RATE > 60; GLUCOSE 119 mg/dL (70-100); POTASSIUM 4.5 mEq/L (3.5-5.2); SODIUM 135 mEq/L (134-144)
--- NOTE | 2016-03-17 13:09 | GDS ---
[f rep st] DISCHARGE SUMMARY DISCHARGE DIAGNOSIS 1. Gamella bacteremia 2. Right chronic diabetic foot ulcer 3. Leukocytosis 4. Permanent atrial fibrillation 5. Hyperkalemia 6. Normocytic anemia 7. CKD 8. Sacral dermatitis 9. CAD 10. HLD CONSULTATIONS: 1. Surgery. 2. Infectious Disease. PROCEDURES: Right below-knee amputation, 03/08/2016. HISTORY OF PRESENT ILLNESS: Patient is a 80-year-old male with a history of diabetes with a diabetic foot infection with gangrene who is followed by Dr. De Los Santos in the outpatient setting. He presented to the hospital on the with inability to care for himself. HOSPITAL COURSE BY PROBLEM: 1. Gemella bacteremia: This is due to his foot infection/gangrene, status post BKA. Wound VAC was placed. Wound VAC to be replaced 1 week after surgery. Sutures to be removed 03/22/2016, but not the keri. Will follow up with Dr. De Los Santos. ID was consulted and patient was treated with broad antibiotics, which have since been narrowed to Unasyn through 03/21/2016. Check CBC and CMP on 03/19. 2. Right chronic diabetic foot ulcer. As stated above, patient underwent an amputation. 3. Leukocytosis. Secondary infection since resolved. 4. Uncontrolled diabetes. Continue glargine with lower sensitive sliding scale as the patient did have some hypoglycemia with higher scale. 5. Permanent atrial fibrillation. Rate controlled on digoxin and diltiazem. Patient is on Coumadin and INR is at goal. Repeat INR on 03/18/2016. 6. Normocytic anemia. H and H are stable. 7. CKD. Creatinine baseline 1 to 1.1. 8. Hyperkalemia. This was intermittent through hospital stay. ROSALINDA inhibitor might have been contributing, and this has been discontinued. This was resolved with Kayexalate and IV fluids. 9. Sacral dermatitis. This is secondary to urinary incontinence as well as increased stooling with Kayexalate. The patient currently has a condom cath to prevent further skin breakdown. However, once patient stronger, this should be discontinued and he should be able to use a bedside commode or a urinal. 10. Hyperlipidemia. Continue statin. 11. CAD. Continue beta carlos, statin, and aspirin. DISPOSITION: Patient is stable for discharge. MEDICATIONS: See medication reconciliation. FOLLOWUP: 1. Dr. Marily De Los Santos. 2. PCP, Dr. Medrano. 3. Check INR and BMP on 03/18/2016. 4. Remove sutures on 03/22/2016, but not the keri. Continue IV antibiotics through 03/21/2016. /[id number]/MODL MTDD
== END 2016-03-17 13:55 | DRG 617 ==
LOC: EDUNIT# → OBSVTOIN 14:58 → F2N 18:42 → F2W 03-08 15:33
PROVIDERS: ADMIT Internal Medicine; ATTEND Internal Medicine
PROC: 30233K1 Transfusion of Nonautologous Frozen Plasma into Peripheral Vein, Percutaneous Approach (ICD-10-PCS; 2016-03-08)
PROC: 0Y6H0Z1 Detachment at Right Lower Leg, High, Open Approach (ICD-10-PCS; principal; 2016-03-08 18:30)
PROC: 02HV33Z Insertion of Infusion Device into Superior Vena Cava, Percutaneous Approach (ICD-10-PCS; 2016-03-13)
DX: E11.621 Type 2 diabetes mellitus with foot ulcer (principal); L97.519 Non-pressure chronic ulcer of other part of right foot with unspecified severity; R78.81 Bacteremia; B96.89 Other specified bacterial agents as the cause of diseases classified elsewhere; E11.52 Type 2 diabetes mellitus with diabetic peripheral angiopathy with gangrene; L89.620 Pressure ulcer of left heel, unstageable; E11.65 Type 2 diabetes mellitus with hyperglycemia; I73.9 Peripheral vascular disease, unspecified; E11.22 Type 2 diabetes mellitus with diabetic chronic kidney disease; N18.9 Chronic kidney disease, unspecified; I50.22 Chronic systolic (congestive) heart failure; E87.1 Hypo-osmolality and hyponatremia; R62.7 Adult failure to thrive; E87.5 Hyperkalemia; D64.9 Anemia, unspecified; K59.00 Constipation, unspecified; N17.9 Acute kidney failure, unspecified; I48.2 Chronic atrial fibrillation; Z86.73 Personal history of transient ischemic attack (TIA), and cerebral infarction without residual deficits; L25.8 Unspecified contact dermatitis due to other agents; R32 Unspecified urinary incontinence
CPT/HCPCS: 82947-QW; 97110-GP; 97112-GP; 97163-GP; 97166-GO; 97530-GO; 97530-GP; 97535-GO; C1751; G8978-GP-CM; G8979-GP-CL; J0295; J1100; J1335; J1815; J2250; J2370; J2405; J2704; J3010; J3370; P9017

== ENCOUNTER → 2016-05-31 | Outpatient (CLI) | payer OTHER | LOC: FIMAGING 15:12 | PROVIDERS: ATTEND Surgery | DX: L89.894 Pressure ulcer of other site, stage 4 (principal) ==

== ENCOUNTER → 2016-06-20 | Day surgery (SDC) | payer OTHER | END | disposition home or self-care (01) | LOC: FIMAGING 15:36 | PROVIDERS: ATTEND Internal Medicine Infectious Disease | PROC: 02HV33Z Insertion of Infusion Device into Superior Vena Cava, Percutaneous Approach (ICD-10-PCS; principal; 2016-06-20) | DX: M86.9 Osteomyelitis, unspecified (principal) | CPT/HCPCS: 36569; 77001; C1751 ==

== ENCOUNTER 2016-06-21 08:08 | Inpatient (IN) | payer OTHER ==
[~2016-06-21 08:08] MED LIST: BACITRACIN 50,000 UNITS/10 ML SYR IRR ONE; BUPIVACAINE 0.25% 30 ML SDV ONE; BUPIVACAINE/EPI 0.25% 30 ML SDV ONE
[2016-06-21] MEDS ORDERED: LR 1,000 ML IV ONE (08:58)
[2016-06-21] MEDS ORDERED: ceFAZolin 2 GM/DEXTROSE 100 ML IV ONE (09:00)
[2016-06-21 09:19] LABS: INR 1.26 (0.83-1.16); PROTIME(PATIENT) 15.8 SEC (12.0-15.0)
[2016-06-21 09:22] LABS: ANION GAP 9 mEq/L (8-16); CALCIUM 8.6 mg/dL (8.5-10.4); CARBON DIOXIDE 24 mEq/l (22-31); CHLORIDE 87 mEq/L (97-110); CREATININE 1.1 mg/dL (0.7-1.3); GLOMERULAR FILTRATION RATE > 60; GLUCOSE 353 mg/dL (70-100); SODIUM 120 mEq/L (134-144)
[2016-06-21] MEDS ORDERED: D50W 25 GM/50 ML SYR IVP PRN (13:18)
[2016-06-21] MEDS: INSULIN LISPRO 100 UNIT/ML SC SCH ×2 (14:47→18:25)
[2016-06-21] MEDS ORDERED: ONDANSETRON 4 MG/2 ML VIAL IVP PRN (15:37)
[2016-06-21] MEDS ORDERED: ACETAMINOPHEN 325 MG TAB PO PRN ×2 (15:37→20:04)
[2016-06-21] MEDS ORDERED: NS 1,000 ML IV ONE (15:37)
--- NOTE | 2016-06-21 16:21 | GHP ---
[f rep st] HISTORY AND PHYSICAL DATE OF ADMISSION: 06/21/2016 CHIEF COMPLAINT: Hyperglycemia. HISTORY OF PRESENT ILLNESS: This is a 81-year-old male with a longstanding history of diabetes jewel itus as well as suspected left heel osteomyelitis who was scheduled to undergo a partial calcanectom y earlier today by Dr. Sommers, which was canceled when he was found to have a blood sugar greater than 300. The patient tells me that his blood sugars have been fairly well controlled over the pas t few days. He endorses to be compliant with his home dose of glargine. It sounds like he may be h aving some fevers and chills at home. He tells me that his left heel wound has been draining and sullivan s been quite purulent. He states he has been compliant with a diabetic diet. He denies any chest p ain or shortness of breath. PAST MEDICAL HISTORY: 1. Hospitalization in March 2016 for Gemella bacteremia due to a right chronic diabetic foot [facility] er, resulting in a right knxri-wrl-dbai amputation March 08, 2016. 2. Diabetes mellitus. 3. Hyponatremia. 4. Sepsis. 5. Normocytic anemia. 6. Persistent atrial fibrillation. 7. Chronic kidney disease. 8. Hypertension. 9. Hyperlipidemia. 10. Coronary artery disease. 11. Congestive heart failure. 12. History of CVA. PAST SURGICAL HISTORY: 1. Coronary artery stenting. 2. Multiple surgical interventions for bilateral foot infections, including a right vlomt-bdc-etyt amputation in February 2016. MEDICATIONS: Reviewed. Refer to [facility] for details. ALLERGIES: No known drug allergies. SOCIAL HISTORY: He denies any alcohol or tobacco currently. He is a former smoker. FAMILY HISTORY: Reviewed and noncontributory. REVIEW OF SYSTEMS: Comprehensive 10-point review of systems was done and is negative except for as mentioned in the HPI. PHYSICAL EXAM: VITAL SIGNS: Blood pressure 110/68, pulse 67, respiratory rate 18, O2 sat 95% on ro om air, temperature afebrile. GENERAL: No acute distress. HEART: S1, S2. LUNGS: Clear. ABDOME N: Soft, nontender, nondistended. No guarding or rebound tenderness. Normoactive bowel sounds. E XTREMITIES: No clubbing or cyanosis. Right BKA. NEURO: Cranial nerves 2-12 grossly intact. No f ocal motor or sensory deficits. SKIN: Left calcaneus wound is draining purulent material that is e xtremely foul smelling. HEAD: Normocephalic, atraumatic. NECK: Supple. No lymphadenopathy. LABORATORY DATA: INR 1.26. Sodium 120, potassium 5, chloride 87, BUN 29, creatinine 1.1, glucose 2 53. Repeat glucose at 1407 was 288. ASSESSMENT/PLAN: This is a 81-year-old male with longstanding diabetes, scheduled to have a left pa rtial calcanectomy due to osteomyelitis today, found to have: 1. Hyperglycemia, possibly due to osteomyelitis and acute infection versus noncompliance. Plan: T he patient will be admitted to the hospital, where we will continue his home dose of glargine and tr eat him with correctional insulin as indicated. I discussed the case with Dr. Sommers, who plans to take the patient to the operating room on the morning of 06/22/2016. 2. Suspected left heel osteomyelitis. Plan: I did discuss the case with Dr. Desean Hernandez, who marc mmended empiric coverage with Zosyn for now since he could very well have a systemic infection causi ng his hyperglycemia. 3. Acute on chronic hyponatremia that appears to be euvolemic. Plan: The patient received a liter of lactated Ringer's in the preop. For now, we will place him on a fluid restriction and order a u rine sodium. He does not appear to be symptomatic from this at this time. 4. History of poorly controlled diabetes mellitus. Plan: As per above. 5. History of atrial fibrillation. Plan: We will continue his home rate controlling medications a nd resume anticoagulation once safe from a surgical standpoint. /[id number]/MODL
[2016-06-21 17:22] LABS: ABSOLUTE IMMATURE GRANULOCYTES 0.14 10^3/uL (0.00-0.10); ADD DIFF? NO; ADD MORPH? NO; ADD SCAN? NO; ATYPICAL LYMPHOCYTE FLAG 0 (0-99); FRAGMENT RBC FLAG 0 (0-99); HEMATOCRIT 29.8 % (40.0-51.0); HEMOGLOBIN 10.2 g/dL (13.7-17.5); LEFT SHIFT FLG 10 (0-99); LIPEMIA HEMOLYSIS FLAG 90 (0-99); MEAN CELL HEMOGLOBIN 26.4 pg (27.9-34.1); MEAN CELL HEMOGLOBIN CONCENTR. 34.2 g/dL (32.4-36.7); MEAN PLATELET VOLUME 9.9 fL (8.7-11.7); PLATELET CLUMPS FLAG 0 (0-99); PLATELET COUNT 171 10^3/uL (150-400); RED BLOOD CELL COUNT 3.87 10^6/uL (4.40-6.38); RED CELL DISTRIBUTION WIDTH 15.9 % (11.5-15.2)
[2016-06-21] MEDS: PIPERACILLIN/TAZO 3.375 GM/DEX 50 ML IV SCH (18:25)
[2016-06-21] MEDS ORDERED: oxyCODONE IR 5 MG TAB PO PRN (20:04)
[2016-06-21] MEDS ORDERED: INSULIN GLARGINE 100 UNITS/ML SYRINGE SC ONE (20:07)
[2016-06-21] MEDS: CHOLECALCIFEROL VIT D3 1,000 UNITS TAB PO SCH (21:53)
[2016-06-21] MEDS: OMEGA-3 FATTY ACIDS 1,000 MG CAP PO SCH (21:53)
[2016-06-21] MEDS: ATORVASTATIN CALCIUM 20 MG TAB PO SCH (21:53)
[2016-06-21] MEDS: GABAPENTIN 300 MG CAP PO SCH (21:53)
[2016-06-22] MEDS: PIPERACILLIN/TAZO 3.375 GM/DEX 50 ML IV SCH ×4 (00:47→17:56)
[2016-06-22 06:19] LABS: % IMMATURE GRANULYOCYTES 1.5 % (0.0-1.1); ABSOLUTE IMMATURE GRANULOCYTES 0.21 10^3/uL (0.00-0.10); ADD DIFF? NO; ADD MORPH? NO; ADD SCAN? NO; ATYPICAL LYMPHOCYTE FLAG 0 (0-99); FRAGMENT RBC FLAG 0 (0-99); HEMATOCRIT 30.4 % (40.0-51.0); HEMOGLOBIN 10.3 g/dL (13.7-17.5); LEFT SHIFT FLG 20 (0-99); LIPEMIA HEMOLYSIS FLAG 90 (0-99); MEAN CELL HEMOGLOBIN 26.2 pg (27.9-34.1); MEAN CELL HEMOGLOBIN CONCENTR. 33.9 g/dL (32.4-36.7); MEAN CELL VOLUME 77.4 fL (81.5-99.8); MEAN PLATELET VOLUME 9.4 fL (8.7-11.7); PLATELET CLUMPS FLAG 10 (0-99); PLATELET COUNT 177 10^3/uL (150-400); RED BLOOD CELL COUNT 3.93 10^6/uL (4.40-6.38); RED CELL DISTRIBUTION WIDTH 16.2 % (11.5-15.2)
[2016-06-22] MEDS ORDERED: BACITRACIN 50,000 UNITS/10 ML SYR IRR ONE (06:58)
[2016-06-22] MEDS ORDERED: BUPIVACAINE 0.25% 30 ML SDV ONE (06:58)
[2016-06-22] MEDS ORDERED: BUPIVACAINE/EPI 0.25% 30 ML SDV ONE (06:59)
[2016-06-22] MEDS ORDERED: NS 1,000 ML IV ONE (06:59)
[2016-06-22 07:13] LABS: ANION GAP 8 mEq/L (8-16); CALCIUM 8.7 mg/dL (8.5-10.4); CARBON DIOXIDE 24 mEq/l (22-31); CHLORIDE 91 mEq/L (97-110); CREATININE 1.3 mg/dL (0.7-1.3); GLOMERULAR FILTRATION RATE 53; GLUCOSE 129 mg/dL (70-100); POTASSIUM 4.5 mEq/L (3.5-5.2); SODIUM 123 mEq/L (134-144)
[2016-06-22] MEDS ORDERED: ENOXAPARIN 40 MG/0.4 ML SYR SC SCH (09:00)
[2016-06-22] MEDS ORDERED: INSULIN GLARGINE 100 UNITS/ML SYRINGE SC SCH (09:00)
--- NOTE | 2016-06-22 09:43 | POSTOPPROG ---
Post Op Note Date of Operation: 06/22/16 Surgeon: Syd Sommers Stitch Wheeler: none Anesthesiologist: aury Pre-op Diagnosis: osteomyelitis left calcaneus Post-op Diagnosis: same Indication: bone infection with ulceration Procedure: left partial calcanectomy Findings: purulent drainage and bone infection Inf/Abcess present in the surg proc area at time of surgery?: Yes Depth: Deep Incisional (Fascial) (down to and including bone) EBL: 50-100 Total fluids administered: 20 cc .25% marcaine plain preop Complications: none Drains: Other (none)
[2016-06-22] MEDS: ASPIRIN EC 81 MG TAB PO SCH (10:19)
[2016-06-22] MEDS: DILTIAZEM SR 90 MG CAP PO SCH (10:19)
[2016-06-22] MEDS: OMEGA-3 FATTY ACIDS 1,000 MG CAP PO SCH ×2 (10:19→21:54)
[2016-06-22] MEDS: CHOLECALCIFEROL VIT D3 1,000 UNITS TAB PO SCH ×2 (10:19→21:54)
[2016-06-22] MEDS: DIGOXIN 250 MCG TAB PO SCH (10:20)
[2016-06-22] MEDS: INSULIN LISPRO 100 UNIT/ML SC SCH ×4 (10:21→23:15)
[2016-06-22] MEDS: LISINOPRIL 5 MG TAB PO SCH (10:21)
[2016-06-22] MEDS: METOPROLOL SUCCINATE XR 50 MG TAB PO SCH (10:21)
[2016-06-22] MEDS: GABAPENTIN 100 MG CAP PO SCH ×2 (10:22→17:57)
--- NOTE | 2016-06-22 11:39 | GOP ---
[f rep st] OPERATIVE REPORT DATE OF OPERATION: 06/22/2016 SURGEON: Syd Sommers DPM INSEAM TRIMMING MACHINE OPERATOR: None. ANESTHESIA: General. ANESTHESIOLOGIST: Osman Padilla MD PREOPERATIVE DIAGNOSIS: 1. Diabetic ulceration with necrosis of bone, left calcaneus. 2. Osteomyelitis, left calcaneus. POSTOPERATIVE DIAGNOSIS: 1. Diabetic ulceration with necrosis of bone, left calcaneus. 2. Osteomyelitis, left calcaneus. PROCEDURE PERFORMED: 1. Left partial calcanectomy. 2. Adjacent tissue transfer flaps of defect greater than 30 sq cm. 3. Incision and drainage of abscess formation, plantar lateral aspect left foot. FINDINGS: SPECIMENS: Soft tissue and bone specimen sent for culture and sensitivity and pathological evaluati on. ESTIMATED BLOOD LOSS: Less than 50 cc. DESCRIPTION OF PROCEDURE: The patient had been admitted to [facility] on 06/21/2016 f or control of his diabetes. After adequate control had been obtained, he was brought down to the op erating room on 06/22/2016, for the surgical procedure. The patient was cleared for the intended pr ocedure and taken to the operating room, placed on the table in the supine position. General anesth esia was performed at that time before patient was moved into a prone position. The foot was preppe d, scrubbed, and draped in usual sterile fashion after the area had been infiltrated with 20 cc of 0 .25% Marcaine plain preoperatively. At this time, a pneumatic ankle tourniquet was placed on the ca lf, but not inflated. At this point, surgical planning was performed. It was decided that an incis ion would start on the distal lateral portion of the Achilles down toward the ulceration. The ulcer ation was measured 6 x 5.5 cm in diameter and probed directly to bone. The incisions then went arou nd either side of the ulceration before reconnecting on the plantar medial surface of the foot. The se incisions were then made with a 10 blade and carried straight down deep, especially at the level of the calcaneus to the bone. The interposing ulceration and necrotic tissue were then dissected fr ee and removed. It was sent in for culture and sensitivity. The calcaneus was freed up. An obviou s necrosis of the Achilles and plantar fascia were identified. They were both released in sectioned with the necrotic tissue then being removed. At this point, there was noted to be and a tracking a bscess formation to the plantar-lateral aspect of the foot. The incisions were carried deep down to this level and drainage and debridement of the abscess formation was performed. Upon completion of this, it was decided that the partial calcanectomy would be performed. This was started with a sag ittal saw and completed with an osteotome and mallet. The bone was then sent in for culture and sen sitivity and pathological evaluation as well. The area was then cleaned up with a rongeur and carlos hed with a bone rasp. At this point, the area was flushed with 3 L of antibiotic rinse in a pulse l avage fashion. Upon completion, no remaining necrotic tissue was identified. It was decided that t he abscess formation would be filled with antibiotic-impregnated beads. Vancomycin was the medicati on that was utilized. These were placed into the abscess site and on the posterior aspect of the ca lcaneus. At this point, 2 rotational flaps had been created and deep closure was obtained with 2-0 Vicryl, followed by skin closure with 2-0 nylon. The areas were dressed with Betadine-soaked Adapti cs, 4 x 4's, ABD, Kerlix, and Coban before the patient was taken to the recovery room with vital sig ns stable and vascular supply intact to all 5 digits of the remaining left foot. HEMOSTASIS: None. MATERIALS: Vancomycin-impregnated antibiotic beads. INJECTABLES: 20 cc 0.25% Marcaine plain preoperatively. COMPLICATIONS: None. /[id number]/MODL
[2016-06-22] MEDS: oxyCODONE IR 5 MG TAB PO PRN (13:36)
[2016-06-22] MEDS: WARFARIN SODIUM 3 MG TAB PO SCH (13:36)
--- NOTE | 2016-06-22 14:44 | WOCRNPDOC ---
[facility] Advanced Assessment Note - Skin Integrity Problem, Advanced Assess Coccyx Pressure Injury Dressing Type: Allevyn Life Dressing Description: Clean/Dry, Intact Exudate Amount: Scant Exudate Color: Yellow Integumentary Issue Intervention: Dressing Changed Eusebio Wound Tissue: Blanching, Denuded (distal and lateral to coccyx, down through perineum and across gluteal folds.) Eusebio Wound Swelling: Mild Wound Bed Color: Yellow Wound Bed Constitution: Adhered Slough Site Odor: None Site Measurement - Head-to-Toe Length X Width X Depth (cm): 1cmx0.4cmx0.1cm Pressure Injury Stage: Unstageable Pressure Injury Present on Admit: Yes (Documented) Skin Integrity Problem Comment: Slough-filled wound directly over coccyx, consistent in appearance w/ unstageable pressure injury. Mild, discrete eusebio- wound erythema and swelling noted. Per patient report, he has had this wound for "a while," and puts "balm" on it at home. He reports being in bed most of the time, which is consistent w/ this injury. He also has a small partial- thickness wound to the R of his coccyx, over the fleshy apsect of his buttock, not pressure-related. Applied hydrocolloid dressing over the unstageable coccyx wound to facilitate autolytic debridement of necrotic tissue, followed by an Allevyn Life sacral dressing for protection. Patient also has some scattered lesions on his gluteal folds and through his groin, indicative of incontinence- associated dermatitis. Supplied STEVIE Shah w/ Clear Zinc skin protectant to apply distal to the dressing. Wound care will round on patient again on Monday 06/26.
[2016-06-22] MEDS ORDERED: NS 500 ML IV ONE (15:13)
--- NOTE | 2016-06-22 15:17 | HOSPPROG ---
Hospitalist Progress Note Assessment/Plan: This is a 81-year-old male with longstanding history of diabetes mellitus postoperative day 0 left partial calcanectomy for osteomyelitis with: # improved hyperglycemia likely due to infection # left heel osteomyelitis status post debridement # acute on chronic hyponatremia likely multifactorial (improving) # poorly controlled diabetes mellitus # history of atrial fibrillation (rate controlled) Plan: -will continue empiric antibiotics with Zosyn for now. Infectious Disease was consulted yesterday. -continue glargine as ordered with correctional insulin as indicated. Will consider titrating as necessary to maintain blood sugars of less than 200 -continue to monitor serum sodium. Start salt tablets -continue rate-controlling medications for atrial fibrillation and start anticoagulation once deemed safe from a surgical standpoint patient is high risk Subjective: Denies fevers or chills. reports postoperative pain is left heel. no other acute complaints Objective: Vital Signs Temp Pulse Resp BP Pulse Ox 36.4 C 80 16 100/49 L 100 06/22/16 12:27 06/22/16 12:27 06/22/16 12:27 06/22/16 12:27 06/22/16 12:27 Microbiology 06/22/16 07:56 Gram Stain - Final Foot - Bone 06/22/16 08:05 Gram Stain - Final Foot - Tissue Laboratory Results 06/22/16 06:10 06/22/16 06:10 06/21/16 06/22/16 06/23/16 05:59 05:59 05:59 Intake Total 220 550 Output Total 400 200 Balance -180 350 PT 15.8 SEC (12.0-15.0) H 06/21/16 08:43 INR 1.26 (0.83-1.16) H 06/21/16 08:43 - Physical Exam Constitutional: no apparent distress, appears nourished, not in pain Ears, Nose, Mouth, Throat: moist mucous membranes, hearing normal, ears appear normal, no oral mucosal ulcers Cardiovascular: regular rate and rhythym, no murmur, rub, or gallop Respiratory: no respiratory distress, no rales or rhonchi, clear to auscultation Gastrointestinal: normoactive bowel sounds, soft, non-tender abdomen, no palpable masses ICD10 Worksheet Patient Problems: Problems Problem Status Onset CAD (coronary artery disease) Acute CVA (cerebral vascular accident) Acute Diabetes Acute Hypertension Acute Congestive heart failure (CHF) Acute Malaise and fatigue Acute Right foot infection Acute Severe sepsis Acute Hyponatremia Acute Supratherapeutic INR Acute Hyperkalemia Acute Acute kidney injury Acute Transient hypotension Acute Failure to thrive Acute
[2016-06-22] MEDS: SODIUM CHLORIDE 1,000 MG TAB PO SCH (17:57)
[2016-06-22] MEDS: ATORVASTATIN CALCIUM 20 MG TAB PO SCH ×2 (21:54→22:28)
[2016-06-22] MEDS: GABAPENTIN 300 MG CAP PO SCH (21:54)
[2016-06-22 22:52] LABS: GLUCOSE 442 mg/dL (70-100)
[2016-06-23] MEDS: PIPERACILLIN/TAZO 3.375 GM/DEX 50 ML IV SCH ×4 (00:12→17:25)
[2016-06-23 05:29] LABS: % IMMATURE GRANULYOCYTES 1.1 % (0.0-1.1); ADD DIFF? NO; ADD MORPH? NO; ADD SCAN? NO; ATYPICAL LYMPHOCYTE FLAG 0 (0-99); FRAGMENT RBC FLAG 0 (0-99); HEMATOCRIT 24.3 % (40.0-51.0); HEMOGLOBIN 8.2 g/dL (13.7-17.5); LEFT SHIFT FLG 40 (0-99); LIPEMIA HEMOLYSIS FLAG 80 (0-99); MEAN CELL HEMOGLOBIN 26.1 pg (27.9-34.1); MEAN CELL HEMOGLOBIN CONCENTR. 33.7 g/dL (32.4-36.7); MEAN CELL VOLUME 77.4 fL (81.5-99.8); PLATELET CLUMPS FLAG 10 (0-99); PLATELET COUNT 116 10^3/uL (150-400); RED BLOOD CELL COUNT 3.14 10^6/uL (4.40-6.38); RED CELL DISTRIBUTION WIDTH 16.1 % (11.5-15.2)
[2016-06-23 05:34] LABS: INR 1.41 (0.83-1.16); PROTIME(PATIENT) 17.2 SEC (12.0-15.0)
[2016-06-23 05:54] LABS: ANION GAP 7 mEq/L (8-16); CALCIUM 8.2 mg/dL (8.5-10.4); CARBON DIOXIDE 22 mEq/l (22-31); CHLORIDE 94 mEq/L (97-110); CREATININE 1.3 mg/dL (0.7-1.3); GLOMERULAR FILTRATION RATE 53; GLUCOSE 379 mg/dL (70-100); SODIUM 123 mEq/L (134-144)
--- NOTE | 2016-06-23 07:33 | PCMIDPN ---
Assessment/Plan: Assessment: Date of service: 06/21/16 L heel ulcer with probable underlying osteomyelitis -- patient had his planned outpatient procedure delayed secondary to elevated glucose levels > 350 and sodium levels < 120. Clinically stable and awaiting correction in values prior to proceeding with surgery. Likely procedure on 06/22/16. Plan remians to cover with Zosyn monotherapy through and after the procedure while we await the incubation of cultures. Plan: 1) Continue Zosyn monotherapy. 2) Follow up on upcoming partial calcanectomy. 06/23/16 07:30 Subjective: Patient resting in his hospital bed. No particular complaints. Mild disappointment that the planned outpatient procedure had to be delayed. No fevers or chills. Objective: Zosyn #1 Vital Signs Temp Pulse Resp BP Pulse Ox 36.5 C 86 16 109/58 L 93 06/22/16 22:15 06/22/16 22:15 06/22/16 22:15 06/22/16 22:15 06/22/16 22:15 Microbiology 06/22/16 08:05 Mycobacterial Smear (FELIX) - Final Foot - Tissue 06/22/16 07:56 Mycobacterial Smear (FELIX) - Final Foot - Bone 06/22/16 07:56 Gram Stain - Final Foot - Bone 06/22/16 08:05 Gram Stain - Final Foot - Tissue Laboratory Results 06/23/16 05:05 06/23/16 05:05 06/22/16 06/23/16 06/24/16 05:59 05:59 05:59 Intake Total 220 600 Output Total 400 200 Balance -180 400 - Physical Exam General Appearance: WD/WN, alert, no apparent distress, non-toxic Respiratory: lungs clear, normal breath sounds, No respiratory distress Cardiac/Chest: regular rate, rhythm, No tachycardia Skin: normal color, warm/dry, No rash Neuro/Psych: alert, normal mood/affect, oriented x 3 ICD10 Worksheet Patient Problems: Problems Problem Status Onset Acute kidney injury Acute CAD (coronary artery disease) Acute CVA (cerebral vascular accident) Acute Congestive heart failure (CHF) Acute Diabetes Acute Failure to thrive Acute Hyperkalemia Acute Hypertension Acute Hyponatremia Acute Malaise and fatigue Acute Right foot infection Acute Severe sepsis Acute Supratherapeutic INR Acute Transient hypotension Acute
[2016-06-23] MEDS ORDERED: NON-FORMULARY NEW DRUG (Warfarin Sodium [Coumadin] 6 MG) PO SCH (09:00)
--- NOTE | 2016-06-23 09:04 | HOSPPROG ---
Hospitalist Progress Note Assessment/Plan: This is a 81-year-old male with longstanding history of diabetes mellitus postoperative day 1 left partial calcanectomy for osteomyelitis with: # persistent hyperglycemia likely due to infection -increase glargine to 35 units daily -cont SSI -start metformin #hypotension -hold metoprolol and enalapril today -bolus normal saline and monitor # left heel osteomyelitis status post debridement -const zosyn d #2 # acute on chronic hyponatremia likely multifactorial (improving) -cont salt tabs # poorly controlled diabetes mellitus # history of atrial fibrillation (rate controlled) -cont coumadin and monitor INR #pressure ulcer POA (unstageable) Subjective: feels well. pain controlled. no fevers or chills Objective: Vital Signs Temp Pulse Resp BP Pulse Ox 36.5 C 86 16 109/58 L 93 06/22/16 22:15 06/22/16 22:15 06/22/16 22:15 06/22/16 22:15 06/22/16 22:15 Microbiology 06/22/16 08:05 Gram Stain - Final Foot - Tissue 06/22/16 07:56 Gram Stain - Final Foot - Bone 06/22/16 07:56 Mycobacterial Smear (FELIX) - Final Foot - Bone 06/22/16 08:05 Mycobacterial Smear (FELIX) - Final Foot - Tissue Laboratory Results 06/23/16 05:05 06/23/16 05:05 06/22/16 06/23/16 06/24/16 05:59 05:59 05:59 Intake Total 220 600 Output Total 400 200 Balance -180 400 PT 17.2 SEC (12.0-15.0) H 06/23/16 05:05 INR 1.41 (0.83-1.16) H 06/23/16 05:05 - Physical Exam Cardiovascular: regular rate and rhythym, no murmur, rub, or gallop Respiratory: no respiratory distress, no rales or rhonchi, clear to auscultation Gastrointestinal: normoactive bowel sounds, soft, non-tender abdomen, no palpable masses Skin: other (left foot wound is covered with clean dry dressing) ICD10 Worksheet Patient Problems: Problems Problem Status Onset Acute kidney injury Acute CAD (coronary artery disease) Acute CVA (cerebral vascular accident) Acute Congestive heart failure (CHF) Acute Diabetes Acute Failure to thrive Acute Hyperkalemia Acute Hypertension Acute Hyponatremia Acute Malaise and fatigue Acute Right foot infection Acute Severe sepsis Acute Supratherapeutic INR Acute Transient hypotension Acute
[2016-06-23] MEDS: SODIUM CHLORIDE 1,000 MG TAB PO SCH ×2 (09:29→17:25)
[2016-06-23] MEDS: GABAPENTIN 100 MG CAP PO SCH ×2 (09:29→17:25)
[2016-06-23] MEDS: ENOXAPARIN 40 MG/0.4 ML SYR SC SCH (09:29)
[2016-06-23] MEDS: DIGOXIN 250 MCG TAB PO SCH (09:32)
[2016-06-23] MEDS: WARFARIN SODIUM 3 MG TAB PO SCH (09:36)
[2016-06-23] MEDS: OMEGA-3 FATTY ACIDS 1,000 MG CAP PO SCH ×2 (09:36→20:54)
[2016-06-23] MEDS: CHOLECALCIFEROL VIT D3 1,000 UNITS TAB PO SCH ×2 (09:37→20:54)
[2016-06-23] MEDS: ASPIRIN EC 81 MG TAB PO SCH (09:37)
[2016-06-23] MEDS: INSULIN LISPRO 100 UNIT/ML SC SCH ×4 (10:07→22:05)
[2016-06-23] MEDS: METOPROLOL SUCCINATE XR 50 MG TAB PO SCH (10:14)
[2016-06-23] MEDS: LISINOPRIL 5 MG TAB PO SCH (10:14)
[2016-06-23] MEDS: DILTIAZEM SR 90 MG CAP PO SCH (10:25)
[2016-06-23] MEDS: INSULIN GLARGINE 100 UNITS/ML SYRINGE SC SCH (10:25)
[2016-06-23 10:32] LABS: GLUCOSE 358 mg/dL (70-100)
[2016-06-23] MEDS ORDERED: NS 1,000 ML IV ONE (11:00)
--- NOTE | 2016-06-23 11:52 | SOAPPROG ---
SOAP Progress Note Assessment/Plan: Assessment:Status post left partial calcanectomy postop day 1. Plan: treatment today consisted of evaluation of the area. I am going to leave the dressings alone for the 1st 3 or 4 days. from a podiatry standpoint , he could be discharged, but given his other medical issues I do not think this is likely. I will follow him up again and in 24 hours. 06/23/16 11:49 Subjective: Patient is seen the in his bed with a chief complaint of blistering that is occurring on his butt. he relates that he had to be moved off of it. He says that the pain medication is controlling any pain from his foot very well. He says that at worst he has a 5/10. Objective: Vital Signs Temp Pulse Resp BP Pulse Ox 36.4 C 65 14 89/51 L 99 06/23/16 08:00 06/23/16 08:00 06/23/16 08:00 06/23/16 08:00 06/23/16 08:00 Microbiology 06/22/16 08:05 Gram Stain - Final Foot - Tissue 06/22/16 07:56 Gram Stain - Final Foot - Bone 06/22/16 07:56 Mycobacterial Smear (FELIX) - Final Foot - Bone 06/22/16 08:05 Mycobacterial Smear (FELIX) - Final Foot - Tissue Laboratory Results 06/23/16 05:05 06/23/16 Unknown 06/22/16 06/23/16 06/24/16 05:59 05:59 05:59 Intake Total 220 600 Output Total 400 200 Balance -180 400 PT 17.2 SEC (12.0-15.0) H 06/23/16 05:05 INR 1.41 (0.83-1.16) H 06/23/16 05:05 Evaluation of his dressing shows no drainage coming from the site. There is no excessive bleeding noted. His capillary refill to the toes is within 3 seconds. There is no ascending cellulitis appreciable. The foot is not warm to touch. - Time Spent With Patient Time Spent With Patient: 15 minutes ICD10 Worksheet Patient Problems: Problems Problem Status Onset Acute kidney injury Acute CAD (coronary artery disease) Acute CVA (cerebral vascular accident) Acute Congestive heart failure (CHF) Acute Diabetes Acute Failure to thrive Acute Hyperkalemia Acute Hypertension Acute Hyponatremia Acute Malaise and fatigue Acute Right foot infection Acute Severe sepsis Acute Supratherapeutic INR Acute Transient hypotension Acute
[2016-06-23] MEDS: ATORVASTATIN CALCIUM 20 MG TAB PO SCH (20:54)
[2016-06-23] MEDS: GABAPENTIN 300 MG CAP PO SCH (20:54)
[2016-06-23] MEDS: oxyCODONE IR 5 MG TAB PO PRN (20:58)
[2016-06-24] MEDS: PIPERACILLIN/TAZO 3.375 GM/DEX 50 ML IV SCH ×4 (00:27→17:37)
[2016-06-24 05:15] LABS: INR 1.42 (0.83-1.16); PROTIME(PATIENT) 17.3 SEC (12.0-15.0)
[2016-06-24] MEDS: INSULIN LISPRO 100 UNIT/ML SC SCH ×4 (08:39→22:33)
[2016-06-24] MEDS: ENOXAPARIN 40 MG/0.4 ML SYR SC SCH (08:40)
[2016-06-24] MEDS: INSULIN GLARGINE 100 UNITS/ML SYRINGE SC SCH ×2 (08:40→10:07)
[2016-06-24] MEDS: SODIUM CHLORIDE 1,000 MG TAB PO SCH ×2 (08:40→17:38)
[2016-06-24] MEDS: DIGOXIN 250 MCG TAB PO SCH (08:41)
[2016-06-24] MEDS: OMEGA-3 FATTY ACIDS 1,000 MG CAP PO SCH ×2 (08:41→22:32)
[2016-06-24] MEDS: WARFARIN SODIUM 3 MG TAB PO SCH (08:45)
[2016-06-24] MEDS: GABAPENTIN 100 MG CAP PO SCH ×2 (08:45→17:38)
[2016-06-24] MEDS: CHOLECALCIFEROL VIT D3 1,000 UNITS TAB PO SCH ×2 (08:45→22:32)
[2016-06-24] MEDS: ASPIRIN EC 81 MG TAB PO SCH (08:45)
[2016-06-24] MEDS: LISINOPRIL 5 MG TAB PO SCH (08:52)
[2016-06-24] MEDS: METOPROLOL SUCCINATE XR 50 MG TAB PO SCH (08:52)
--- NOTE | 2016-06-24 09:29 | HOSPPROG ---
Hospitalist Progress Note Assessment/Plan: This is a 81-year-old male with longstanding history of diabetes mellitus postoperative day 2 left partial calcanectomy for osteomyelitis with: # persistent hyperglycemia likely due to infection -increase glargine from 35 units to 45 units daily -cont SSI -start metformin #hypotension (improved) -resume metoprolol and enalapril today -bolus normal saline and monitor # left heel osteomyelitis status post debridement -const zosyn d #3 # acute on chronic hyponatremia likely multifactorial (improving) -cont salt tabs -labs today are pending # poorly controlled diabetes mellitus # history of atrial fibrillation (rate controlled) -cont coumadin and monitor INR #pressure ulcer POA (unstageable) dispo: continue inpatient care Subjective: no new complaints. no fever or chills. tolerating diet. denies sugar intake Objective: Vital Signs Temp Pulse Resp BP Pulse Ox 36.6 C 71 16 113/49 L 97 06/24/16 08:00 06/24/16 08:00 06/24/16 08:00 06/24/16 08:00 06/24/16 08:00 Microbiology 06/22/16 08:05 Gram Stain - Final Foot - Tissue 06/22/16 07:56 Gram Stain - Final Foot - Bone 06/22/16 08:05 Mycobacterial Smear (FELIX) - Final Foot - Tissue 06/22/16 07:56 Mycobacterial Smear (FELIX) - Final Foot - Bone Laboratory Results 06/23/16 05:05 06/23/16 Unknown 06/23/16 06/24/16 06/25/16 05:59 05:59 05:59 Intake Total 600 1586 Output Total 200 3 Balance 400 1583 PT 17.3 SEC (12.0-15.0) H 06/24/16 04:35 INR 1.42 (0.83-1.16) H 06/24/16 04:35 - Physical Exam Cardiovascular: regular rate and rhythym, no murmur, rub, or gallop Respiratory: no respiratory distress, no rales or rhonchi, clear to auscultation Gastrointestinal: normoactive bowel sounds, soft, non-tender abdomen, no palpable masses ICD10 Worksheet Patient Problems: Problems Problem Status Onset CAD (coronary artery disease) Acute CVA (cerebral vascular accident) Acute Diabetes Acute Hypertension Acute Congestive heart failure (CHF) Acute Malaise and fatigue Acute Right foot infection Acute Severe sepsis Acute Hyponatremia Acute Supratherapeutic INR Acute Hyperkalemia Acute Acute kidney injury Acute Transient hypotension Acute Failure to thrive Acute
[2016-06-24] MEDS: DILTIAZEM SR 90 MG CAP PO SCH (10:07)
[2016-06-24 10:09] LABS: % IMMATURE GRANULYOCYTES 1.8 % (0.0-1.1); ABSOLUTE IMMATURE GRANULOCYTES 0.14 10^3/uL (0.00-0.10); ADD DIFF? NO; ADD MORPH? NO; ADD SCAN? NO; ATYPICAL LYMPHOCYTE FLAG 0 (0-99); FRAGMENT RBC FLAG 0 (0-99); HEMATOCRIT 23.7 % (40.0-51.0); LEFT SHIFT FLG 20 (0-99); LIPEMIA HEMOLYSIS FLAG 90 (0-99); MEAN CELL HEMOGLOBIN 26.1 pg (27.9-34.1); MEAN CELL HEMOGLOBIN CONCENTR. 33.8 g/dL (32.4-36.7); MEAN CELL VOLUME 77.5 fL (81.5-99.8); MEAN PLATELET VOLUME 9.9 fL (8.7-11.7); PLATELET CLUMPS FLAG 0 (0-99); PLATELET COUNT 125 10^3/uL (150-400); RED BLOOD CELL COUNT 3.06 10^6/uL (4.40-6.38); RED CELL DISTRIBUTION WIDTH 16.4 % (11.5-15.2)
[2016-06-24 11:03] LABS: ANION GAP 8 mEq/L (8-16); CALCIUM 8.2 mg/dL (8.5-10.4); CARBON DIOXIDE 21 mEq/l (22-31); CHLORIDE 95 mEq/L (97-110); CREATININE 1.4 mg/dL (0.7-1.3); GLOMERULAR FILTRATION RATE 49; GLUCOSE 333 mg/dL (70-100); POTASSIUM 5.2 mEq/L (3.5-5.2); SODIUM 124 mEq/L (134-144)
[2016-06-24] MEDS: metFORMIN HCL 500 MG TAB PO SCH ×2 (11:23→17:38)
--- NOTE | 2016-06-24 16:19 | PCMIDPN ---
Assessment/Plan: Assessment/Plan: 1. left Heel abscess with possible osteomyelitis: - s/p partial calcanectomy on 06/22/16. - Cx with Citrobacter, Enterococcus, and Staph aureas so far. Susceptibilties pending -Currently on Zosyn empirically. -wbc has overall improved. -Post op dressing still in place. will evaluate surgical site once this has been taken down by Dr. Sommers. -Creatinine at 1.4 Meds zosyn 3.3.75gm q6- 06/21/16 Subjective: Afebrile. Feels well. Has some pain involving the left foot. Denies sob, abd pain or diarrhea. Objective: Vital Signs Temp Pulse Resp BP Pulse Ox 36.5 C 63 16 104/46 L 95 06/24/16 15:30 06/24/16 15:30 06/24/16 15:30 06/24/16 15:30 06/24/16 15:30 Microbiology 06/22/16 08:05 Gram Stain - Final Foot - Tissue 06/22/16 07:56 Gram Stain - Final Foot - Bone 06/22/16 07:56 Mycobacterial Smear (FELIX) - Final Foot - Bone 06/22/16 08:05 Mycobacterial Smear (FELIX) - Final Foot - Tissue Laboratory Results 06/24/16 10:00 06/24/16 10:00 06/23/16 06/24/16 06/25/16 05:59 05:59 05:59 Intake Total 600 1586 Output Total 200 3 Balance 400 1583 - Physical Exam General Appearance: alert, no apparent distress Respiratory: lungs clear Cardiac/Chest: regular rate, rhythm Extremities: other (right bka), No swelling Abdomen: normal bowel sounds, non-tender, soft, No distended Skin: other (left foot dressed in post op dressing-i did not take down.) ICD10 Worksheet Patient Problems: Problems Problem Status Onset Acute kidney injury Acute CAD (coronary artery disease) Acute CVA (cerebral vascular accident) Acute Congestive heart failure (CHF) Acute Diabetes Acute Failure to thrive Acute Hyperkalemia Acute Hypertension Acute Hyponatremia Acute Malaise and fatigue Acute Right foot infection Acute Severe sepsis Acute Supratherapeutic INR Acute Transient hypotension Acute
[2016-06-24] MEDS ORDERED: metFORMIN HCL 500 MG TAB PO SCH (18:00)
[2016-06-24] MEDS: GABAPENTIN 300 MG CAP PO SCH (22:32)
[2016-06-24] MEDS: ATORVASTATIN CALCIUM 20 MG TAB PO SCH (22:33)
[2016-06-25] MEDS: PIPERACILLIN/TAZO 3.375 GM/DEX 50 ML IV SCH ×4 (00:56→22:17)
[2016-06-25] MEDS: oxyCODONE IR 5 MG TAB PO PRN ×2 (01:10→15:28)
[2016-06-25 05:28] LABS: ADD DIFF? YES; ADD MORPH? NO; ADD SCAN? NO; ATYPICAL LYMPHOCYTE FLAG 20 (0-99); FRAGMENT RBC FLAG 0 (0-99); HEMOGLOBIN 7.8 g/dL (13.7-17.5); LEFT SHIFT FLG 20 (0-99); LIPEMIA HEMOLYSIS FLAG 80 (0-99); MEAN CELL HEMOGLOBIN 25.9 pg (27.9-34.1); MEAN CELL HEMOGLOBIN CONCENTR. 32.5 g/dL (32.4-36.7); MEAN CELL VOLUME 79.7 fL (81.5-99.8); PLATELET CLUMPS FLAG 20 (0-99); PLATELET COUNT 141 10^3/uL (150-400); RED BLOOD CELL COUNT 3.01 10^6/uL (4.40-6.38); RED CELL DISTRIBUTION WIDTH 16.7 % (11.5-15.2)
[2016-06-25 05:39] LABS: INR 1.55 (0.83-1.16); PROTIME(PATIENT) 18.6 SEC (12.0-15.0)
[2016-06-25 05:41] LABS: ANION GAP 6 mEq/L (8-16); CALCIUM 8.4 mg/dL (8.5-10.4); CARBON DIOXIDE 22 mEq/l (22-31); CHLORIDE 100 mEq/L (97-110); CREATININE 1.4 mg/dL (0.7-1.3); GLOMERULAR FILTRATION RATE 49; GLUCOSE 98 mg/dL (70-100); POTASSIUM 5.1 mEq/L (3.5-5.2); SODIUM 128 mEq/L (134-144)
[2016-06-25 06:14] LABS: MICROCYTES 1+; PLATELET ESTIMATE ADEQUATE (ADEQ); POLYCHROMASIA 1+
[2016-06-25 06:15] LABS: HYPOCHROMIA 1+
[2016-06-25] MEDS: metFORMIN HCL 500 MG TAB PO SCH ×2 (08:30→18:37)
[2016-06-25] MEDS: GABAPENTIN 100 MG CAP PO SCH ×2 (08:30→18:37)
[2016-06-25] MEDS: SODIUM CHLORIDE 1,000 MG TAB PO SCH ×2 (08:30→18:37)
[2016-06-25] MEDS: INSULIN LISPRO 100 UNIT/ML SC SCH ×4 (08:32→22:13)
[2016-06-25] MEDS: CHOLECALCIFEROL VIT D3 1,000 UNITS TAB PO SCH ×2 (10:05→22:17)
[2016-06-25] MEDS: ASPIRIN EC 81 MG TAB PO SCH (10:05)
[2016-06-25] MEDS: ENOXAPARIN 40 MG/0.4 ML SYR SC SCH (10:06)
[2016-06-25] MEDS: WARFARIN SODIUM 3 MG TAB PO SCH (10:10)
[2016-06-25] MEDS: OMEGA-3 FATTY ACIDS 1,000 MG CAP PO SCH ×2 (10:10→22:17)
[2016-06-25] MEDS: DIGOXIN 250 MCG TAB PO SCH ×2 (10:11)
--- NOTE | 2016-06-25 10:42 | PCMIDPN ---
Assessment/Plan: Assessment: Date of service: 06/21/16 L heel osteomyelitis polymicrobial secondary to both Citrobacter and Enterococcus -- patient had his planned outpatient procedure delayed secondary to elevated glucose levels > 350 and sodium levels < 120. Patient remains on Zosyn monotherapy in seems to be clinically improving. Will reduce the schedule to Q 8 hours from Q 6 hours given slight increase in creatinine. Plan: 1) Continue Zosyn monotherapy but adjust dose to every 8 hours rather than every 6 hours. 2) Follow up on pathology from surgery. 06/23/16 07:30 06/25/16 11:42 Subjective: Patient is resting in his hospital bed. He has no complaints. Denies any fevers or chills. Pain is under decent control. No ascending redness from the left leg. Objective: Zosyn # 3 Vital Signs Temp Pulse Resp BP Pulse Ox 37.1 C 80 16 106/57 L 100 06/25/16 08:00 06/25/16 10:11 06/25/16 08:00 06/25/16 08:00 06/25/16 08:00 Microbiology 06/22/16 07:56 Gram Stain - Final Foot - Bone 06/22/16 08:05 Gram Stain - Final Foot - Tissue 06/22/16 07:56 Mycobacterial Smear (FELIX) - Final Foot - Bone 06/22/16 08:05 Mycobacterial Smear (FELIX) - Final Foot - Tissue Laboratory Results 06/25/16 05:00 06/25/16 05:00 06/24/16 06/25/16 06/26/16 05:59 05:59 05:59 Intake Total 1586 Output Total 3 4 Balance 1583 -4 - Physical Exam General Appearance: WD/WN, alert, no apparent distress, non-toxic Respiratory: lungs clear, normal breath sounds, No respiratory distress Cardiac/Chest: regular rate, rhythm, No tachycardia Extremities: non-tender, No normal inspection Skin: normal color, warm/dry, No rash Neuro/Psych: alert, normal mood/affect, oriented x 3 ICD10 Worksheet Patient Problems: Problems Problem Status Onset Acute kidney injury Acute CAD (coronary artery disease) Acute CVA (cerebral vascular accident) Acute Congestive heart failure (CHF) Acute Diabetes Acute Failure to thrive Acute Hyperkalemia Acute Hypertension Acute Hyponatremia Acute Malaise and fatigue Acute Right foot infection Acute Severe sepsis Acute Supratherapeutic INR Acute Transient hypotension Acute
--- NOTE | 2016-06-25 12:40 | HOSPPROG ---
Hospitalist Progress Note Assessment/Plan: This is a 81-year-old male with longstanding history of diabetes mellitus postoperative day 2 left partial calcanectomy for osteomyelitis with: # persistent hyperglycemia likely due to infection (improving) -glargine increased from 35 units to 45 units daily on 06/24 now with some mild hypoglycemia -cont SSI -continue metformin (started 06/24) -consider decreasing lantus to 40 units on 06/26 if still with hypoglycemia #hypotension (improved) -resume metoprolol and enalapril today -bolus normal saline and monitor # left heel osteomyelitis status post debridement -const zosyn d #4 -ID consult reviewed and appreciated. await path # acute on chronic hyponatremia likely multifactorial (improving) -cont salt tabs # poorly controlled diabetes mellitus # history of atrial fibrillation (rate controlled) -cont coumadin and monitor INR #pressure ulcer POA (unstageable ) dispo: continue inpatient care Subjective: continues to have left heal pain 06/20. tolerating diet. 1 bm last night. no chest pain or sob Objective: Vital Signs Temp Pulse Resp BP Pulse Ox 37.1 C 80 16 106/57 L 100 06/25/16 08:00 06/25/16 10:11 06/25/16 08:00 06/25/16 08:00 06/25/16 08:00 Microbiology 06/22/16 08:05 Mycobacterial Smear (FELIX) - Final Foot - Tissue 06/22/16 08:05 Gram Stain - Final Foot - Tissue 06/22/16 07:56 Gram Stain - Final Foot - Bone 06/22/16 07:56 Mycobacterial Smear (FELIX) - Final Foot - Bone Laboratory Results 06/25/16 05:00 06/25/16 05:00 06/24/16 06/25/16 06/26/16 05:59 05:59 05:59 Intake Total 1586 Output Total 3 4 Balance 1583 -4 PT 18.6 SEC (12.0-15.0) H 06/25/16 05:00 INR 1.55 (0.83-1.16) H 06/25/16 05:00 - Physical Exam Constitutional: no apparent distress, appears nourished, not in pain Cardiovascular: regular rate and rhythym, no murmur, rub, or gallop Respiratory: no respiratory distress, no rales or rhonchi, clear to auscultation Neurologic: AAOx3, CN II-XII Intact, No facial droop ICD10 Worksheet Patient Problems: Problems Problem Status Onset CAD (coronary artery disease) Acute CVA (cerebral vascular accident) Acute Diabetes Acute Hypertension Acute Congestive heart failure (CHF) Acute Malaise and fatigue Acute Right foot infection Acute Severe sepsis Acute Hyponatremia Acute Supratherapeutic INR Acute Hyperkalemia Acute Acute kidney injury Acute Transient hypotension Acute Failure to thrive Acute
--- NOTE | 2016-06-25 13:00 | SOAPPROG ---
SOAP Progress Note Assessment/Plan: Assessment:Status post left partial calcanectomy postop day 3. Plan: treatment today consisted of removal of the dressing. Area was cleaned with sterile saline. Sterile dressing change was performed. He is cleared from podiatry to be discharged when deemed appropriate by hospitalists. 06/23/16 11:49 06/25/16 12:56 Subjective: Patient is seen in bed. He relates that his foot pain is continuing to decrease and is well controlled with medications. He also relates that his butt is not as sore either. Objective: Vital Signs Temp Pulse Resp BP Pulse Ox 37.1 C 80 16 106/57 L 100 06/25/16 08:00 06/25/16 10:11 06/25/16 08:00 06/25/16 08:00 06/25/16 08:00 Microbiology 06/22/16 08:05 Mycobacterial Smear (FELIX) - Final Foot - Tissue 06/22/16 08:05 Gram Stain - Final Foot - Tissue 06/22/16 07:56 Gram Stain - Final Foot - Bone 06/22/16 07:56 Mycobacterial Smear (FELIX) - Final Foot - Bone Laboratory Results 06/25/16 05:00 06/25/16 05:00 06/24/16 06/25/16 06/26/16 05:59 05:59 05:59 Intake Total 1586 Output Total 3 4 Balance 1583 -4 PT 18.6 SEC (12.0-15.0) H 06/25/16 05:00 INR 1.55 (0.83-1.16) H 06/25/16 05:00 Evaluation of the incision after removal of the dressing shows no gross signs of infection. Incision is well coapted. No obvious drainage is noted. No erythema is appreciable. Vascular supply continues to be decreased though capillary refill is intact. ICD10 Worksheet Patient Problems: Problems Problem Status Onset Acute kidney injury Acute CAD (coronary artery disease) Acute CVA (cerebral vascular accident) Acute Congestive heart failure (CHF) Acute Diabetes Acute Failure to thrive Acute Hyperkalemia Acute Hypertension Acute Hyponatremia Acute Malaise and fatigue Acute Right foot infection Acute Severe sepsis Acute Supratherapeutic INR Acute Transient hypotension Acute
[2016-06-25] MEDS: INSULIN GLARGINE 100 UNITS/ML SYRINGE SC SCH (15:29)
[2016-06-25] MEDS: DILTIAZEM SR 90 MG CAP PO SCH (15:31)
[2016-06-25] MEDS: LISINOPRIL 5 MG TAB PO SCH (15:32)
[2016-06-25] MEDS: METOPROLOL SUCCINATE XR 50 MG TAB PO SCH (15:33)
--- NOTE | 2016-06-25 17:07 | WOCRNPDOC ---
WOCRN Advanced Assessment Note - Skin Integrity Problem, Advanced Assess Coccyx Pressure Injury Dressing Type: Open to Air Exudate Amount: None Wound Bed Constitution: Adhered Slough (100%) Site Measurement - Head-to-Toe Length X Width X Depth (cm): 1x0.5x0.3 Pressure Injury Stage: Unstageable Pressure Injury Present on Admit: Yes Skin Integrity Problem Comment: No change in wound since previous assessment. Wound bed dry and continues to be 100% slough. Wound needs debridement. Will initiate Santyl. Asked Dr. Cummins for prescription. Wound care will follow up on Thursday 06/29. TAPS and specialty P 500 mattress requested. Care notes given to patient re: pressure injury education.
[2016-06-25] MEDS: ATORVASTATIN CALCIUM 20 MG TAB PO SCH (22:17)
[2016-06-25] MEDS: GABAPENTIN 300 MG CAP PO SCH (22:17)
[2016-06-26 04:50] LABS: ADD DIFF? YES; ADD MORPH? NO; ADD SCAN? NO; ATYPICAL LYMPHOCYTE FLAG 0 (0-99); FRAGMENT RBC FLAG 0 (0-99); HEMATOCRIT 24.3 % (40.0-51.0); HEMOGLOBIN 8.2 g/dL (13.7-17.5); LEFT SHIFT FLG 30 (0-99); LIPEMIA HEMOLYSIS FLAG 80 (0-99); MEAN CELL HEMOGLOBIN 26.2 pg (27.9-34.1); MEAN CELL HEMOGLOBIN CONCENTR. 33.7 g/dL (32.4-36.7); MEAN CELL VOLUME 77.6 fL (81.5-99.8); PLATELET CLUMPS FLAG 0 (0-99); PLATELET COUNT 155 10^3/uL (150-400); RED BLOOD CELL COUNT 3.13 10^6/uL (4.40-6.38)
[2016-06-26] MEDS: COLLAGENASE 30 GM OINTMENT TP SCH ×2 (04:56→12:00)
[2016-06-26] MEDS: PIPERACILLIN/TAZO 3.375 GM/DEX 50 ML IV SCH ×3 (05:02→21:51)
[2016-06-26 05:55] LABS: HYPOCHROMIA 1+; MICROCYTES 1+; PLATELET ESTIMATE DECREASED (ADEQ)
--- NOTE | 2016-06-26 08:30 | HOSPPROG ---
Hospitalist Progress Note Assessment/Plan: This is a 81-year-old male with longstanding history of diabetes mellitus postoperative day 2 left partial calcanectomy for osteomyelitis. Today is my 1st encounter with the patient. Chart reviewed. # persistent hyperglycemia likely due to infection (improving) -will decrease Lantus to home dose/ having low glucoses -cont SSI -continue metformin (started 06/24) #hypotension (improved) -on metoprolol and enalapril (place parameters as to when to hold) -was given a fluid bolus yesterday -improved # left heel osteomyelitis status post debridement -const zosyn d #5 -ID consult reviewed and appreciated. #microcytic anemia will check iron studies if not done recently # acute on chronic hyponatremia likely multifactorial (improving) -cont salt tabs -Na 128 # poorly controlled diabetes mellitus glucose 98 this a.m. # history of atrial fibrillation (rate controlled) -cont Coumadin/INR yesterday was 1.55 -will check in a.m. #pressure ulcer POA (unstageable ) dispo: continue inpatient care Subjective: Jared is feeling better today. No complaints. Objective: Vital Signs Temp Pulse Resp BP Pulse Ox 36.9 C 60 16 112/50 L 96 06/26/16 08:00 06/26/16 08:00 06/26/16 08:00 06/26/16 08:00 06/26/16 08:00 Microbiology 06/22/16 08:05 Gram Stain - Final Foot - Tissue 06/22/16 07:56 Gram Stain - Final Foot - Bone 06/22/16 08:05 Mycobacterial Smear (FELIX) - Final Foot - Tissue Laboratory Results 06/26/16 04:18 06/25/16 05:00 06/25/16 06/26/16 06/27/16 05:59 05:59 05:59 Intake Total 350 Output Total 4 Balance -4 350 PT 18.6 SEC (12.0-15.0) H 06/25/16 05:00 INR 1.55 (0.83-1.16) H 06/25/16 05:00 - Physical Exam Constitutional: chronically ill appearing, other (thin) Eyes: PERRL Ears, Nose, Mouth, Throat: hearing normal Cardiovascular: regular rate and rhythym Respiratory: no respiratory distress Gastrointestinal: normoactive bowel sounds Skin: other (left foot in dressing) Neurologic: AAOx3 Psychiatric: interacting appropriately, not anxious ICD10 Worksheet Patient Problems: Problems Problem Status Onset Acute kidney injury Acute CAD (coronary artery disease) Acute CVA (cerebral vascular accident) Acute Congestive heart failure (CHF) Acute Diabetes Acute Failure to thrive Acute Hyperkalemia Acute Hypertension Acute Hyponatremia Acute Malaise and fatigue Acute Right foot infection Acute Severe sepsis Acute Supratherapeutic INR Acute Transient hypotension Acute
[2016-06-26] MEDS: GABAPENTIN 100 MG CAP PO SCH ×2 (10:48→17:21)
[2016-06-26] MEDS: SODIUM CHLORIDE 1,000 MG TAB PO SCH ×2 (10:49→17:21)
[2016-06-26] MEDS: metFORMIN HCL 500 MG TAB PO SCH ×2 (10:49→17:21)
[2016-06-26] MEDS: ASPIRIN EC 81 MG TAB PO SCH (10:49)
[2016-06-26] MEDS: OMEGA-3 FATTY ACIDS 1,000 MG CAP PO SCH ×2 (10:50→21:51)
[2016-06-26] MEDS: CHOLECALCIFEROL VIT D3 1,000 UNITS TAB PO SCH ×2 (10:50→21:51)
[2016-06-26] MEDS: INSULIN LISPRO 100 UNIT/ML SC SCH ×4 (10:51→21:51)
[2016-06-26] MEDS: WARFARIN SODIUM 3 MG TAB PO SCH (10:51)
[2016-06-26] MEDS: DIGOXIN 250 MCG TAB PO SCH (10:53)
[2016-06-26] MEDS: ENOXAPARIN 40 MG/0.4 ML SYR SC SCH (10:55)
[2016-06-26] MEDS: INSULIN GLARGINE 100 UNITS/ML SYRINGE SC SCH (15:20)
[2016-06-26] MEDS: DILTIAZEM SR 90 MG CAP PO SCH (17:22)
[2016-06-26] MEDS: LISINOPRIL 5 MG TAB PO SCH (17:23)
[2016-06-26] MEDS: METOPROLOL SUCCINATE XR 50 MG TAB PO SCH (17:23)
[2016-06-26] MEDS: GABAPENTIN 300 MG CAP PO SCH (21:51)
[2016-06-26] MEDS: ATORVASTATIN CALCIUM 20 MG TAB PO SCH (21:51)
[2016-06-27] MEDS: PIPERACILLIN/TAZO 3.375 GM/DEX 50 ML IV SCH ×3 (05:19→22:15)
[2016-06-27 05:48] LABS: ANION GAP 7 mEq/L (8-16); CALCIUM 8.6 mg/dL (8.5-10.4); CARBON DIOXIDE 24 mEq/l (22-31); CHLORIDE 104 mEq/L (97-110); CREATININE 1.2 mg/dL (0.7-1.3); GLOMERULAR FILTRATION RATE 58; GLUCOSE 124 mg/dL (70-100); POTASSIUM 4.5 mEq/L (3.5-5.2); SODIUM 135 mEq/L (134-144)
[2016-06-27 05:50] LABS: ADD DIFF? YES; ADD MORPH? NO; ADD SCAN? NO; ATYPICAL LYMPHOCYTE FLAG 0 (0-99); FRAGMENT RBC FLAG 0 (0-99); HEMATOCRIT 25.6 % (40.0-51.0); HEMOGLOBIN 8.4 g/dL (13.7-17.5); LEFT SHIFT FLG 40 (0-99); LIPEMIA HEMOLYSIS FLAG 80 (0-99); MEAN CELL HEMOGLOBIN 26.2 pg (27.9-34.1); MEAN CELL HEMOGLOBIN CONCENTR. 32.8 g/dL (32.4-36.7); MEAN CELL VOLUME 79.8 fL (81.5-99.8); MEAN PLATELET VOLUME 9.9 fL (8.7-11.7); PLATELET CLUMPS FLAG 0 (0-99); PLATELET COUNT 158 10^3/uL (150-400); RED BLOOD CELL COUNT 3.21 10^6/uL (4.40-6.38); RED CELL DISTRIBUTION WIDTH 17.1 % (11.5-15.2)
[2016-06-27] MEDS: COLLAGENASE 30 GM OINTMENT TP SCH (06:07)
[2016-06-27 06:13] LABS: INR 1.91 (0.83-1.16)
[2016-06-27 08:45] LABS: HYPOCHROMIA 1+; MICROCYTES 1+
[2016-06-27 08:46] LABS: PLATELET ESTIMATE ADEQUATE (ADEQ)
[2016-06-27 08:47] LABS: ROULEAUX PRESENT
[2016-06-27 08:48] LABS: POLYCHROMASIA 1+
[2016-06-27] MEDS: INSULIN LISPRO 100 UNIT/ML SC SCH ×4 (10:20→22:15)
[2016-06-27] MEDS: SODIUM CHLORIDE 1,000 MG TAB PO SCH ×2 (10:21→18:05)
[2016-06-27] MEDS: GABAPENTIN 100 MG CAP PO SCH ×2 (10:22→18:06)
[2016-06-27] MEDS: ASPIRIN EC 81 MG TAB PO SCH (10:23)
[2016-06-27] MEDS: metFORMIN HCL 500 MG TAB PO SCH (10:23)
[2016-06-27] MEDS: CHOLECALCIFEROL VIT D3 1,000 UNITS TAB PO SCH ×2 (10:24→20:46)
[2016-06-27] MEDS: DIGOXIN 250 MCG TAB PO SCH (10:24)
[2016-06-27] MEDS: WARFARIN SODIUM 3 MG TAB PO SCH (10:28)
[2016-06-27] MEDS: OMEGA-3 FATTY ACIDS 1,000 MG CAP PO SCH ×2 (10:28→20:46)
[2016-06-27] MEDS: ENOXAPARIN 40 MG/0.4 ML SYR SC SCH (10:29)
[2016-06-27] MEDS: DILTIAZEM SR 90 MG CAP PO SCH (10:32)
[2016-06-27] MEDS: LISINOPRIL 5 MG TAB PO SCH (10:32)
[2016-06-27] MEDS: METOPROLOL SUCCINATE XR 50 MG TAB PO SCH (10:33)
[2016-06-27] MEDS: INSULIN GLARGINE 100 UNITS/ML SYRINGE SC SCH (12:18)
--- NOTE | 2016-06-27 13:38 | HOSPPROG ---
Hospitalist Progress Note Assessment/Plan: This is a 81-year-old male with longstanding history of diabetes mellitus postoperative left partial calcanectomy for osteomyelitis. # diarrhea c diff negative/ cont to have large amounts of loose stool will send for a GI pathogen PCR hold metformin in case this is contributing will give fluids # persistent hyperglycemia likely due to infection - Lantus to home dose/ s -cont SSI -dc metformin #hypotension -on metoprolol and enalapril (place parameters as to when to hold) - ongoing today # left heel osteomyelitis status post debridement -const zosyn d #6 -ID consult reviewed and appreciated. #microcytic anemia #coccyx pressure ulcer/POA dressing changes / wound care # acute on chronic hyponatremia likely multifactorial (improving) -cont salt tabs -resolved # poorly controlled diabetes mellitus glucose 124 this a.m. # history of atrial fibrillation (rate controlled) -INR 1.9 -will follow dispo: continue inpatient care Subjective: Jared is feeling poorly, tired. Objective: Vital Signs Temp Pulse Resp BP Pulse Ox 36.6 C 70 16 90/52 L 93 06/27/16 08:00 06/27/16 10:33 06/27/16 08:00 06/27/16 10:33 06/27/16 08:00 Microbiology 06/21/16 17:55 Blood Culture - Final Blood 06/21/16 18:00 Blood Culture - Final Blood 06/22/16 07:56 Gram Stain - Final Foot - Bone 06/22/16 08:05 Mycobacterial Smear (FELIX) - Final Foot - Tissue 06/22/16 07:56 Mycobacterial Smear (FELIX) - Final Foot - Bone 06/22/16 08:05 Gram Stain - Final Foot - Tissue Laboratory Results 06/27/16 05:15 06/27/16 05:15 06/26/16 06/27/16 06/28/16 05:59 05:59 05:59 Intake Total 350 Balance 350 PT 22.0 SEC (12.0-15.0) H 06/27/16 05:15 INR 1.91 (0.83-1.16) H 06/27/16 05:15 - Physical Exam Constitutional: not in pain, chronically ill appearing, uncomfortable Eyes: PERRL Ears, Nose, Mouth, Throat: hearing normal Cardiovascular: regular rate and rhythym Respiratory: no respiratory distress Skin: warm, other (small coccyx wound ) Musculoskeletal: generalized weakness Neurologic: AAOx3 Psychiatric: interacting appropriately, not anxious ICD10 Worksheet Patient Problems: Problems Problem Status Onset Acute kidney injury Acute CAD (coronary artery disease) Acute CVA (cerebral vascular accident) Acute Congestive heart failure (CHF) Acute Diabetes Acute Failure to thrive Acute Hyperkalemia Acute Hypertension Acute Hyponatremia Acute Malaise and fatigue Acute Right foot infection Acute Severe sepsis Acute Supratherapeutic INR Acute Transient hypotension Acute
[2016-06-27] MEDS ORDERED: NS 1,000 ML IV SCH (15:15)
--- NOTE | 2016-06-27 15:32 | PCMIDPN ---
Assessment/Plan: Assessment: Date of service: 06/21/16 L heel osteomyelitis polymicrobial secondary to both Citrobacter and Enterococcus -- Patient remains on Zosyn monotherapy in seems to be clinically improving. Diarrhea is getting worse. GI pathogen panel is pending. Plan: 1) Continue Zosyn monotherapy 2) Follow up on pathology from surgery. 3. Follow up on GI pathogen panel. Subjective: Patient is having significant problems with diarrhea today. No fevers. Otherwise tolerating the Zosyn. Objective: Zosyn # 5 Vital Signs Temp Pulse Resp BP Pulse Ox 36.6 C 70 16 90/52 L 93 06/27/16 08:00 06/27/16 10:33 06/27/16 08:00 06/27/16 10:33 06/27/16 08:00 Microbiology 06/22/16 07:56 Gram Stain - Final Foot - Bone 06/22/16 08:05 Gram Stain - Final Foot - Tissue 06/21/16 17:55 Blood Culture - Final Blood 06/21/16 18:00 Blood Culture - Final Blood 06/22/16 08:05 Mycobacterial Smear (FELIX) - Final Foot - Tissue 06/22/16 07:56 Mycobacterial Smear (FELIX) - Final Foot - Bone Laboratory Results 06/27/16 05:15 06/27/16 05:15 06/26/16 06/27/16 06/28/16 05:59 05:59 05:59 Intake Total 350 Balance 350 - Physical Exam General Appearance: WD/WN, alert, no apparent distress, non-toxic Skin: normal color, warm/dry, rash Neuro/Psych: alert, normal mood/affect, oriented x 3 ICD10 Worksheet Patient Problems: Problems Problem Status Onset Acute kidney injury Acute CAD (coronary artery disease) Acute CVA (cerebral vascular accident) Acute Congestive heart failure (CHF) Acute Diabetes Acute Failure to thrive Acute Hyperkalemia Acute Hypertension Acute Hyponatremia Acute Malaise and fatigue Acute Right foot infection Acute Severe sepsis Acute Supratherapeutic INR Acute Transient hypotension Acute
[2016-06-27] MEDS: GABAPENTIN 300 MG CAP PO SCH (20:46)
[2016-06-27] MEDS: ATORVASTATIN CALCIUM 20 MG TAB PO SCH (20:46)
[2016-06-28] MEDS: PIPERACILLIN/TAZO 3.375 GM/DEX 50 ML IV SCH ×3 (05:14→21:46)
[2016-06-28 06:06] LABS: ADD DIFF? YES; ADD MORPH? NO; ADD SCAN? NO; ATYPICAL LYMPHOCYTE FLAG 0 (0-99); FRAGMENT RBC FLAG 0 (0-99); HEMATOCRIT 23.5 % (40.0-51.0); HEMOGLOBIN 7.9 g/dL (13.7-17.5); LEFT SHIFT FLG 40 (0-99); LIPEMIA HEMOLYSIS FLAG 80 (0-99); MEAN CELL HEMOGLOBIN 26.2 pg (27.9-34.1); MEAN CELL HEMOGLOBIN CONCENTR. 33.6 g/dL (32.4-36.7); MEAN CELL VOLUME 78.1 fL (81.5-99.8); MEAN PLATELET VOLUME 9.5 fL (8.7-11.7); PLATELET CLUMPS FLAG 10 (0-99); PLATELET COUNT 153 10^3/uL (150-400); RED BLOOD CELL COUNT 3.01 10^6/uL (4.40-6.38); RED CELL DISTRIBUTION WIDTH 17.2 % (11.5-15.2)
[2016-06-28 06:15] LABS: INR 2.2 (0.83-1.16); PROTIME(PATIENT) 24.6 SEC (12.0-15.0)
[2016-06-28 06:27] LABS: ANION GAP 4 mEq/L (8-16); CARBON DIOXIDE 26 mEq/l (22-31); CHLORIDE 104 mEq/L (97-110); CREATININE 1.1 mg/dL (0.7-1.3); GLUCOSE 87 mg/dL (70-100); POTASSIUM 4.3 mEq/L (3.5-5.2); SODIUM 134 mEq/L (134-144)
[2016-06-28 06:28] LABS: CALCIUM 8.3 mg/dL (8.5-10.4); GLOMERULAR FILTRATION RATE > 60
[2016-06-28 06:31] LABS: HYPOCHROMIA 1+; MICROCYTES 1+; PLATELET ESTIMATE ADEQUATE (ADEQ); POLYCHROMASIA 1+
--- NOTE | 2016-06-28 08:17 | HOSPPROG ---
Hospitalist Progress Note Assessment/Plan: This is a 81-year-old male with longstanding history of diabetes mellitus postoperative left partial calcanectomy for osteomyelitis. # diarrhea c diff negative/ cont to have large amounts of loose stool GI pathogen PCR will be sent today if he has further loose stools hold metformin in case this is contributing # persistent hyperglycemia likely due to infection - Lantus to home dose/ s -cont SSI -dc metformin #hypotension -on metoprolol and enalapril (place parameters as to when to hold) - resolved # left heel osteomyelitis status post debridement -const zosyn d #7 #microcytic anemia h/h decreased but was hydrated will OB stools check iron studies #coccyx pressure ulcer/POA dressing changes / wound care # acute on chronic hyponatremia likely multifactorial (improving) -cont salt tabs -resolved # poorly controlled diabetes mellitus glucose 87 this a.m. # history of atrial fibrillation (rate controlled) -INR 2.2 dispo: continue inpatient care Subjective: Jared is feeling better today/ no complaints. Objective: Vital Signs Temp Pulse Resp BP Pulse Ox 36.8 C 80 16 120/65 96 06/28/16 07:18 06/28/16 07:18 06/28/16 07:18 06/28/16 07:18 06/28/16 07:18 Microbiology 06/26/16 15:40 Gastrointestinal Tract Panel (PCR) - Final Stool No Organism Detected 06/22/16 07:56 Gram Stain - Final Foot - Bone 06/22/16 08:05 Gram Stain - Final Foot - Tissue 06/21/16 17:55 Blood Culture - Final Blood 06/21/16 18:00 Blood Culture - Final Blood Laboratory Results 06/28/16 05:30 06/28/16 05:30 PT 24.6 SEC (12.0-15.0) H 06/28/16 05:30 INR 2.20 (0.83-1.16) H 06/28/16 05:30 - Physical Exam Constitutional: not in pain, chronically ill appearing Eyes: PERRL Ears, Nose, Mouth, Throat: hearing normal Cardiovascular: regular rate and rhythym Respiratory: no respiratory distress Gastrointestinal: normoactive bowel sounds Skin: rash (on upper chest area/ below the clavicle area) Musculoskeletal: no muscle tenderness Neurologic: AAOx3 Psychiatric: interacting appropriately, not anxious ICD10 Worksheet Patient Problems: Problems Problem Status Onset Acute kidney injury Acute CAD (coronary artery disease) Acute CVA (cerebral vascular accident) Acute Congestive heart failure (CHF) Acute Diabetes Acute Failure to thrive Acute Hyperkalemia Acute Hypertension Acute Hyponatremia Acute Malaise and fatigue Acute Right foot infection Acute Severe sepsis Acute Supratherapeutic INR Acute Transient hypotension Acute
[2016-06-28] MEDS: ASPIRIN EC 81 MG TAB PO SCH (08:53)
[2016-06-28] MEDS: DILTIAZEM SR 90 MG CAP PO SCH (08:53)
[2016-06-28] MEDS: WARFARIN SODIUM 3 MG TAB PO SCH (08:53)
[2016-06-28] MEDS: CHOLECALCIFEROL VIT D3 1,000 UNITS TAB PO SCH ×2 (08:54→21:47)
[2016-06-28] MEDS: SODIUM CHLORIDE 1,000 MG TAB PO SCH ×2 (08:54→18:06)
[2016-06-28] MEDS: INSULIN GLARGINE 100 UNITS/ML SYRINGE SC SCH (08:54)
[2016-06-28] MEDS: GABAPENTIN 100 MG CAP PO SCH ×2 (09:25→18:06)
[2016-06-28] MEDS: OMEGA-3 FATTY ACIDS 1,000 MG CAP PO SCH ×2 (09:25→21:47)
[2016-06-28] MEDS: METOPROLOL SUCCINATE XR 50 MG TAB PO SCH (09:26)
[2016-06-28] MEDS: DIGOXIN 250 MCG TAB PO SCH (09:26)
[2016-06-28] MEDS: INSULIN LISPRO 100 UNIT/ML SC SCH ×4 (09:28→21:46)
[2016-06-28] MEDS: LISINOPRIL 5 MG TAB PO SCH (09:54)
[2016-06-28] MEDS: COLLAGENASE 30 GM OINTMENT TP SCH (12:27)
[2016-06-28 16:13] LABS: ALBUMIN 2.3 g/dL (3.5-5.0); BILIRUBIN,TOTAL 0.5 mg/dL (0.1-1.4); BILIRUBIN-CONJUGATED 0.5 mg/dL (0.0-0.5); TOTAL PROTEIN 5.1 g/dL (6.3-8.2)
--- NOTE | 2016-06-28 16:15 | PCMIDPN ---
Assessment/Plan: #L calcaneal OM s/p debridement with bone and tissue cultures showing Citrobacter, MSSA and enterococcus patient on Zosyn to cover all 3 organisms. Today patient appears very weak, but non toxic, VS all stable --plan 6 week IV antibiotics from time of debridement, 08/03/16 --discussed with patient that he likely needs SNF --add on LFTs for B lactam monitoring and CRP --follow up on path findings. #Antibiotic induced diarrhea: GI panel PCR neg, including Cdiff --use antidiarrheals to control meds zosyn 3.375gm IV q8h CrCl = 50 Subjective: patient does not want to go to SNF, feels like his son could help him 3 loose BMs so far today Objective: Vital Signs Temp Pulse Resp BP Pulse Ox 36.6 C 66 18 112/60 95 06/28/16 16:00 06/28/16 16:00 06/28/16 16:00 06/28/16 16:00 06/28/16 16:00 Microbiology 06/22/16 08:05 Gram Stain - Final Foot - Tissue 06/22/16 07:56 Gram Stain - Final Foot - Bone 06/26/16 15:40 Gastrointestinal Tract Panel (PCR) - Final Stool No Organism Detected Laboratory Results 06/28/16 05:30 06/28/16 05:30 - Physical Exam General Appearance: alert, cachetic, non-toxic EENT: pale conjunctiva, dry mucous membranes, poor dentition Respiratory: lungs clear, No accessory muscle use Cardiac/Chest: regular rate, rhythm, systolic murmur Extremities: other (LLE dressing in place, R BKA) Abdomen: non-tender, soft Skin: No rash Neuro/Psych: alert, normal mood/affect, oriented x 3 - Line/s RUE PICC Lines: No drainage, No erythema ICD10 Worksheet Patient Problems: Problems Problem Status Onset Acute kidney injury Acute CAD (coronary artery disease) Acute CVA (cerebral vascular accident) Acute Congestive heart failure (CHF) Acute Diabetes Acute Failure to thrive Acute Hyperkalemia Acute Hypertension Acute Hyponatremia Acute Malaise and fatigue Acute Right foot infection Acute Severe sepsis Acute Supratherapeutic INR Acute Transient hypotension Acute
[2016-06-28] MEDS: ATORVASTATIN CALCIUM 20 MG TAB PO SCH (21:47)
[2016-06-28] MEDS: GABAPENTIN 300 MG CAP PO SCH (21:47)
[2016-06-29 04:41] LABS: ADD DIFF? YES; ADD MORPH? NO; ADD SCAN? NO; ATYPICAL LYMPHOCYTE FLAG 0 (0-99); FRAGMENT RBC FLAG 0 (0-99); HEMATOCRIT 23.8 % (40.0-51.0); HEMOGLOBIN 7.9 g/dL (13.7-17.5); LEFT SHIFT FLG 60 (0-99); LIPEMIA HEMOLYSIS FLAG 80 (0-99); MEAN CELL HEMOGLOBIN 26.2 pg (27.9-34.1); MEAN CELL HEMOGLOBIN CONCENTR. 33.2 g/dL (32.4-36.7); MEAN CELL VOLUME 78.8 fL (81.5-99.8); MEAN PLATELET VOLUME 9.4 fL (8.7-11.7); PLATELET CLUMPS FLAG 0 (0-99); PLATELET COUNT 155 10^3/uL (150-400); RED BLOOD CELL COUNT 3.02 10^6/uL (4.40-6.38); RED CELL DISTRIBUTION WIDTH 17.5 % (11.5-15.2)
[2016-06-29 04:49] LABS: ANION GAP 4 mEq/L (8-16); CALCIUM 8.4 mg/dL (8.5-10.4); CARBON DIOXIDE 26 mEq/l (22-31); CHLORIDE 104 mEq/L (97-110); GLOMERULAR FILTRATION RATE > 60; GLUCOSE 105 mg/dL (70-100); POTASSIUM 4.3 mEq/L (3.5-5.2); SODIUM 134 mEq/L (134-144)
[2016-06-29 04:52] LABS: INR 2.4 (0.83-1.16); PROTIME(PATIENT) 26.4 SEC (12.0-15.0)
[2016-06-29 04:58] LABS: % SATURATION 18 % (20-55); TOTAL IRON BINDING CAPACITY 228 ug/dL (260-490)
[2016-06-29 05:17] LABS: HYPOCHROMIA 1+; MICROCYTES 1+; PLATELET ESTIMATE ADEQUATE (ADEQ); POLYCHROMASIA 1+
[2016-06-29] MEDS: PIPERACILLIN/TAZO 3.375 GM/DEX 50 ML IV SCH ×3 (05:28→21:01)
[2016-06-29] MEDS: COLLAGENASE 30 GM OINTMENT TP SCH (08:00)
[2016-06-29] MEDS: GABAPENTIN 100 MG CAP PO SCH ×2 (08:12→17:39)
[2016-06-29] MEDS: SODIUM CHLORIDE 1,000 MG TAB PO SCH ×2 (08:13→17:39)
[2016-06-29] MEDS: INSULIN LISPRO 100 UNIT/ML SC SCH ×4 (08:15→21:00)
--- NOTE | 2016-06-29 08:23 | WOCRNPDOC ---
WOCRN Advanced Assessment Note - Skin Integrity Problem, Advanced Assess Coccyx Pressure Injury Dressing Type: Tegaderm Film, Telfa Dressing Description: Soiled (at distal end w/ stool) Exudate Amount: Scant Exudate Color: Yellow Integumentary Issue Intervention: Dressing Changed, Barrier Cream Applied ( Clear zinc, applied to distal buttocks inferior to dressing) Samantha Wound Tissue: Blanching, Erythema, Denuded Samantha Wound Swelling: Mild Wound Bed Color: Yellow Wound Bed Constitution: Adhered Slough Site Odor: None Site Measurement - Head-to-Toe Length X Width X Depth (cm): 0.9cmx0.4cmx0.2cm Pressure Injury Stage: Unstageable Pressure Injury Present on Admit: Yes Skin Integrity Problem Comment: Wound continues to be 100% adhered slough. Samantha- wound skin remains intact and blanching. Patient continues to have raw, denuded skin surrounding his anus and extending down onto his lower buttocks and gluteal folds, to which I applied Clear Zinc. Will continue w/ Santyl daily to soften slough in wound; sharp debridement of slough planned for Saturday, 07/02. bottoming machine operator Trice present and assisting.
[2016-06-29] MEDS: INSULIN GLARGINE 100 UNITS/ML SYRINGE SC SCH (08:56)
[2016-06-29] MEDS: DIGOXIN 250 MCG TAB PO SCH (08:57)
[2016-06-29] MEDS: CHOLECALCIFEROL VIT D3 1,000 UNITS TAB PO SCH ×2 (08:57→20:57)
[2016-06-29] MEDS: WARFARIN SODIUM 3 MG TAB PO SCH (08:57)
[2016-06-29] MEDS: OMEGA-3 FATTY ACIDS 1,000 MG CAP PO SCH ×2 (08:57→20:57)
[2016-06-29] MEDS: ASPIRIN EC 81 MG TAB PO SCH (08:59)
--- NOTE | 2016-06-29 09:19 | HOSPPROG ---
Hospitalist Progress Note Assessment/Plan: This is a 81-year-old male with longstanding history of diabetes mellitus postoperative left partial calcanectomy for osteomyelitis. # diarrhea c diff negative/ cont to have large amounts of loose stool GI pathogen PCR will be sent today if he has further loose stools hold metformin in case this is contributing # persistent hyperglycemia likely due to infection / much improved - Lantus to home dose/ s -cont SSI -dc metformin #hypotension -on metoprolol and enalapril (place parameters as to when to hold) - resolved # left heel osteomyelitis status post debridement -const zosyn d #8 #microcytic anemia/iron deficiency ob stool in is negative check iron studies eventually should get further GI w/u when in better health for now, will add oral iron #coccyx pressure ulcer/POA dressing changes / wound care # acute on chronic hyponatremia likely multifactorial (improving) -cont salt tabs -resolved # poorly controlled diabetes mellitus glucose 87 this a.m. # history of atrial fibrillation (rate controlled) -INR 2.4 dispo:Initially, Jared said he wouldn't go to SNF but now is willing/ would go to , or if bed available Objective: Vital Signs Temp Pulse Resp BP Pulse Ox 36.4 C 62 14 114/56 L 97 06/29/16 08:00 06/29/16 08:57 06/29/16 08:00 06/29/16 08:00 06/29/16 08:00 Microbiology 06/22/16 08:05 Gram Stain - Final Foot - Tissue 06/22/16 07:56 Gram Stain - Final Foot - Bone Laboratory Results 06/29/16 04:30 06/29/16 04:30 06/28/16 06/29/16 06/30/16 05:59 05:59 05:59 Intake Total 100 Output Total 150 Balance -50 PT 26.4 SEC (12.0-15.0) H 06/29/16 04:30 INR 2.40 (0.83-1.16) H 06/29/16 04:30 - Physical Exam Constitutional: not in pain, chronically ill appearing Eyes: PERRL Ears, Nose, Mouth, Throat: hearing normal Cardiovascular: regular rate and rhythym, systolic murmur Respiratory: no respiratory distress Gastrointestinal: normoactive bowel sounds Skin: warm, other (rash on upper chest area/ better) Musculoskeletal: generalized weakness Neurologic: AAOx3 Psychiatric: interacting appropriately, not anxious ICD10 Worksheet Patient Problems: Problems Problem Status Onset Acute kidney injury Acute CAD (coronary artery disease) Acute CVA (cerebral vascular accident) Acute Congestive heart failure (CHF) Acute Diabetes Acute Failure to thrive Acute Hyperkalemia Acute Hypertension Acute Hyponatremia Acute Malaise and fatigue Acute Right foot infection Acute Severe sepsis Acute Supratherapeutic INR Acute Transient hypotension Acute
[2016-06-29] MEDS: ASCORBIC ACID 500 MG TAB PO SCH (09:46)
[2016-06-29] MEDS: DILTIAZEM SR 90 MG CAP PO SCH (09:46)
[2016-06-29] MEDS: IRON POLYSAC/IRON HEME 28 MG TAB PO SCH ×2 (10:11→22:59)
[2016-06-29] MEDS: METOPROLOL SUCCINATE XR 50 MG TAB PO SCH (10:12)
--- NOTE | 2016-06-29 11:15 | SOAPPROG ---
SOAP Progress Note Assessment/Plan: Assessment:Status post left partial calcanectomy postop day 7. Plan: treatment today consisted of removal of the dressing. The site was rinsed with sterile saline before a new sterile dressing was apllied. Stitches will be left for another week. Sterile dressing changes can be performed daily at this point. I will reevaluate him in 1 week at my office. 06/23/16 11:49 06/25/16 12:56 06/29/16 11:11 Subjective: Patient relates no pain from foot. He says he is going to be sent to a rehab facility. Objective: Vital Signs Temp Pulse Resp BP Pulse Ox 36.4 C 62 14 116/62 97 06/29/16 08:00 06/29/16 08:57 06/29/16 08:00 06/29/16 08:00 06/29/16 08:00 Microbiology 06/22/16 08:05 Gram Stain - Final Foot - Tissue 06/22/16 07:56 Gram Stain - Final Foot - Bone Laboratory Results 06/29/16 04:30 06/29/16 04:30 06/28/16 06/29/16 06/30/16 05:59 05:59 05:59 Intake Total 100 Output Total 150 Balance -50 PT 26.4 SEC (12.0-15.0) H 06/29/16 04:30 INR 2.40 (0.83-1.16) H 06/29/16 04:30 Minimal serosanginous drainage on his bandage. No open ulcers are noted. There is no erythema. There is minimal drainage from the breakdown of the antibiotic beads. No problems with wound healing are noted. No change in vascular status. ICD10 Worksheet Patient Problems: Problems Problem Status Onset Acute kidney injury Acute CAD (coronary artery disease) Acute CVA (cerebral vascular accident) Acute Congestive heart failure (CHF) Acute Diabetes Acute Failure to thrive Acute Hyperkalemia Acute Hypertension Acute Hyponatremia Acute Malaise and fatigue Acute Right foot infection Acute Severe sepsis Acute Supratherapeutic INR Acute Transient hypotension Acute
[2016-06-29] MEDS: LISINOPRIL 5 MG TAB PO SCH (11:25)
--- NOTE | 2016-06-29 15:00 | PCMIDPN ---
Assessment/Plan: Assessment: Date of service: 06/21/16 L heel osteomyelitis polymicrobial secondary to both Citrobacter and Enterococcus -- Patient remains on Zosyn monotherapy in seems to be clinically improving. Diarrhea is resolved with medication. No clear etiology. Plan: 1) Continue Zosyn monotherapy 2) Follow up on pathology from surgery. 06/29/16 22:55 Subjective: Patient doing well. No new complaints. Notes diarrhea is resolved on immodium. No fevers. Objective: Zosyn #7 Vital Signs Temp Pulse Resp BP Pulse Ox 36.4 C 62 14 116/62 97 06/29/16 08:00 06/29/16 08:57 06/29/16 08:00 06/29/16 08:00 06/29/16 08:00 Microbiology 06/22/16 08:05 Gram Stain - Final Foot - Tissue 06/22/16 07:56 Gram Stain - Final Foot - Bone Laboratory Results 06/29/16 04:30 06/29/16 04:30 06/28/16 06/29/16 06/30/16 05:59 05:59 05:59 Intake Total 100 Output Total 150 Balance -50 C-Reactive Protein 29.1 mg/L (<10.0) H 06/28/16 18:45 - Physical Exam General Appearance: WD/WN, alert, no apparent distress, non-toxic Respiratory: lungs clear, normal breath sounds, No respiratory distress Cardiac/Chest: regular rate, rhythm, No tachycardia Skin: normal color, warm/dry, No rash Neuro/Psych: alert, normal mood/affect, oriented x 3 ICD10 Worksheet Patient Problems: Problems Problem Status Onset Acute kidney injury Acute CAD (coronary artery disease) Acute CVA (cerebral vascular accident) Acute Congestive heart failure (CHF) Acute Diabetes Acute Failure to thrive Acute Hyperkalemia Acute Hypertension Acute Hyponatremia Acute Malaise and fatigue Acute Right foot infection Acute Severe sepsis Acute Supratherapeutic INR Acute Transient hypotension Acute
--- NOTE | 2016-06-29 15:07 | PDIAF ---
- Diagnosis Diagnosis: B calcaneal osteomyelitis Code Status: Full Code - Medication Management Discharge Medications: Medications to Continue on Transfer Acetaminophen [Tylenol 325mg (*)] 650 mg PO Q4 PRN 06/21/16 [Last Taken Unknown] Aspirin EC [Aspirin EC 81 mg (*)] 81 mg PO DAILY 06/21/16 [Last Taken Unknown] Atorvastatin Calcium [Lipitor 20 mg (*)] 20 mg PO HS 06/21/16 [Last Taken ] Cholecalciferol Vit D3 [Vitamin D3 (*)] 1,000 units PO BID 06/21/16 [Last Taken 06/20/16] Digoxin [Lanoxin 125 mcg (RX)] 125 mcg PO Q2D 06/21/16 [Last Taken Unknown] Digoxin [Lanoxin 125 mcg (RX)] 250 mcg PO Q2D 06/21/16 [Last Taken Unknown] Diltiazem HCl [Diltiazem ER] 90 mg PO DAILY 06/21/16 [Last Taken 06/20/16] Gabapentin [Neurontin 100 MG (*)] 200 mg PO BIDMEAL 06/21/16 [Last Taken ] Gabapentin [Neurontin 300 MG (*)] 300 mg PO HS 06/21/16 [Last Taken 06/20/16] Insulin Glargine [Lantus 100 UNITS/ML (*)] 25 unit SC DAILY 06/21/16 [Last Taken 06/20/16] Lisinopril [Zestril 5 mg (*)] 2.5 mg PO DAILY 06/21/16 [Last Taken 06/20/16] Metoprolol Succinate Xr [Toprol Xl 50 mg (*)] 50 mg PO DAILY 06/21/16 [Last Taken 06/20/16] [place]-3 Fatty Acids/Fish Oil [[place] 3 1,000 mg Softgel] 1 each PO BID 06/21/16 [ Last Taken Unknown] Warfarin Sodium [Coumadin] 6 mg PO DAILY 06/21/16 [Last Taken 06/16/16] oxyCODONE IR [Oxycodone Ir (*)] 5 - 10 mg PO Q4H PRN 06/21/16 [Last Taken Unknown] Alf Antibiotics: Zosyn 3.375g IV q 8 hours Avionics Manager Antibiotic Stop Date: 08/03/16 Discharge Medications: Refer to the Discharge Home Medication list for PRN reason. PICC Care - Routine: Yes - Orders Services needed: Registered Nurse, Physical Therapy - Labs/Radiology CBC Date: 07/02/16 (q saturday) CMP Date: 07/02/16 (q saturday) Call or Fax Lab and Imaging Results to: Dr. Deesan Hernandez - - Follow Up Care Current Providers and Referrals: Angel Medrano MD [Primary Care Provider] -
[2016-06-29 16:02] VITALS: RESP 16
[2016-06-29] MEDS: ATORVASTATIN CALCIUM 20 MG TAB PO SCH (20:57)
[2016-06-29] MEDS: GABAPENTIN 300 MG CAP PO SCH (20:57)
[2016-06-29 22:16] VITALS: O2SAT 93
[2016-06-30] MEDS: PIPERACILLIN/TAZO 3.375 GM/DEX 50 ML IV SCH ×2 (05:16→12:18)
[2016-06-30 07:01] LABS: ADD DIFF? YES; ADD MORPH? NO; ADD SCAN? NO; ATYPICAL LYMPHOCYTE FLAG 0 (0-99); FRAGMENT RBC FLAG 20 (0-99); LEFT SHIFT FLG 40 (0-99); LIPEMIA HEMOLYSIS FLAG 80 (0-99); MEAN CELL VOLUME 81.2 fL (81.5-99.8); MEAN PLATELET VOLUME 9.8 fL (8.7-11.7); PLATELET CLUMPS FLAG 10 (0-99); PLATELET COUNT 168 10^3/uL (150-400); RED BLOOD CELL COUNT 3.08 10^6/uL (4.40-6.38); RED CELL DISTRIBUTION WIDTH 17.7 % (11.5-15.2)
[2016-06-30 07:26] LABS: ELLIPTOCYTES 1+; MACROCYTES 1+; POLYCHROMASIA 1+
[2016-06-30 07:27] LABS: PLATELET ESTIMATE ADEQUATE (ADEQ)
[2016-06-30 07:52] VITALS: BP 117/53; TEMP 97.6
--- NOTE | 2016-06-30 08:41 | HOSPPROG ---
Hospitalist Progress Note Assessment/Plan: This is a 81-year-old male with longstanding history of diabetes mellitus postoperative left partial calcanectomy for osteomyelitis. # diarrhea c diff negative GI pathogen PCR will be sent today if he has further loose stools hold metformin in case this is contributing # persistent hyperglycemia likely due to infection / much improved - Lantus to home dose/ -cont SSI -dc metformin #hypotension -on metoprolol and enalapril (place parameters as to when to hold) - resolved # left heel osteomyelitis status post debridement -const zosyn d #9 #microcytic anemia/iron deficiency ob stool in is negative eventually should get further GI w/u when in better health added oral iron #coccyx pressure ulcer/POA dressing changes / wound care # acute on chronic hyponatremia likely multifactorial (improving) -cont salt tabs -resolved # poorly controlled diabetes mellitus glucose 105 this a.m. # history of atrial fibrillation (rate controlled) -INR 2.4 yesterday dispo: SNF today Subjective: Jared is feeling better today. No complaints. Objective: Vital Signs Temp Pulse Resp BP Pulse Ox 36.4 C 70 16 117/53 L 93 06/30/16 07:49 06/30/16 07:49 06/30/16 07:49 06/30/16 07:49 06/30/16 07:49 Microbiology 06/22/16 08:05 Gram Stain - Final Foot - Tissue Anaerobic Culture - Final Citrobacter Koseri Staphylococcus Aureus Enterococcus Faecalis 06/22/16 07:56 Gram Stain - Final Foot - Bone Anaerobic Culture - Final Citrobacter Koseri Enterococcus Faecalis Laboratory Results 06/30/16 05:00 06/29/16 04:30 06/29/16 06/30/16 07/01/16 05:59 05:59 05:59 Intake Total 100 1575 Output Total 150 120 Balance -50 1455 PT 26.4 SEC (12.0-15.0) H 06/29/16 04:30 INR 2.40 (0.83-1.16) H 06/29/16 04:30 - Physical Exam Constitutional: not in pain, chronically ill appearing Eyes: PERRL Ears, Nose, Mouth, Throat: hearing normal Respiratory: no respiratory distress Gastrointestinal: normoactive bowel sounds Skin: warm Musculoskeletal: generalized weakness Neurologic: AAOx3 Psychiatric: interacting appropriately ICD10 Worksheet Patient Problems: Problems Problem Status Onset Acute kidney injury Acute CAD (coronary artery disease) Acute CVA (cerebral vascular accident) Acute Congestive heart failure (CHF) Acute Diabetes Acute Failure to thrive Acute Hyperkalemia Acute Hypertension Acute Hyponatremia Acute Malaise and fatigue Acute Right foot infection Acute Severe sepsis Acute Supratherapeutic INR Acute Transient hypotension Acute
--- NOTE | 2016-06-30 08:46 | PDIAF ---
- Diagnosis Diagnosis: B calcaneal osteomyelitis Code Status: Full Code - Medication Management Discharge Medications: Medications to Continue on Transfer Acetaminophen [Tylenol 325mg (*)] 650 mg PO Q4 PRN 06/21/16 [Last Taken Unknown] Aspirin EC [Aspirin EC 81 mg (*)] 81 mg PO DAILY 06/21/16 [Last Taken Unknown] Atorvastatin Calcium [Lipitor 20 mg (*)] 20 mg PO HS 06/21/16 [Last Taken ] Cholecalciferol Vit D3 [Vitamin D3 (*)] 1,000 units PO BID 06/21/16 [Last Taken 06/20/16] Digoxin [Lanoxin 125 mcg (RX)] 125 mcg PO Q2D 06/21/16 [Last Taken Unknown] Digoxin [Lanoxin 125 mcg (RX)] 250 mcg PO Q2D 06/21/16 [Last Taken Unknown] Diltiazem HCl [Diltiazem 12Hr ER] 90 mg PO DAILY 06/21/16 [Last Taken 06/20/16] Gabapentin [Neurontin 100 MG (*)] 200 mg PO BIDMEAL 06/21/16 [Last Taken ] Gabapentin [Neurontin 300 MG (*)] 300 mg PO HS 06/21/16 [Last Taken 06/20/16] Insulin Glargine [Lantus 100 UNITS/ML (*)] 25 unit SC DAILY 06/21/16 [Last Taken 06/20/16] Lisinopril [Zestril 5 mg (*)] 2.5 mg PO DAILY 06/21/16 [Last Taken 06/20/16] Metoprolol Succinate Xr [Toprol Xl 50 mg (*)] 50 mg PO DAILY 06/21/16 [Last Taken 06/20/16] [place]-3 Fatty Acids/Fish Oil [[place] 3 1,000 mg Softgel] 1 each PO BID 06/21/16 [ Last Taken Unknown] Warfarin Sodium [Coumadin] 6 mg PO DAILY 06/21/16 [Last Taken 06/16/16] oxyCODONE IR [Oxycodone Ir (*)] 5 - 10 mg PO Q4H PRN 06/21/16 [Last Taken Unknown] Ascorbic Acid [Vitamin C 500 mg (*)] 500 mg PO DAILY tab 06/30/16 [Last Taken Unknown] Collagenase [Santyl (*)] 1 cheli TP DAILY oint 06/30/16 [Last Taken Unknown] Iron Polysacch/Iron Heme Polyp [Bifera] 28 mg PO BID tab 06/30/16 [Last Taken Unknown] Sodium Chloride [Salt Tablet] 1,000 mg PO BIDMEAL tab 06/30/16 [Last Taken Unknown] metFORMIN HCL [Glucophage 500 mg (*)] 500 mg PO BIDMEAL tab 06/30/16 [Last Taken Unknown] Steam Bone Press Tender Antibiotics: Zosyn 3.375g IV q 8 hours Steam Bone Press Tender Antibiotic Stop Date: 08/03/16 Discharge Medications: Refer to the Discharge Home Medication list for PRN reason. PICC Care - Routine: Yes - Orders Services needed: Registered Nurse, Physical Therapy, Occupational Therapy Diet Recommendation: no restrictions on diet, ADA 1800 consistent carb Wound Care Instructions: Wound care orders for coccyx: to be done daily and PRN. 1) cleanse w/ NS and gauze. Do NOT use wound cleanser. 2) apply skin prep to eusebio-wound skin. 3) Apply a thick layer (At least 1/8 of an inch thick ) layer of Santyl/Collagenase to open wound area only. Try not to overlap Santyl onto the wound's edges. 4) cover w/ a very small piece of telfa cut to fit exactly over the wound bed and do not overlap it onto wound edges. 5) Secure with tegaderm. Additional: salt tabs are new medication/ once his sodium levels improve, can stop. Also, metformin has been held due to diarrhea/ this improved once this med was stopped. Can further evaluate if this should be continued. Jared needs f /u with a GI doc to evaluate his anemia once he gets healthier. - Labs/Radiology CBC Date: 07/02/16 (q saturday) CMP Date: 07/02/16 (q saturday) PT/INR Date: 07/01/16 (q 3 days) Call or Fax Lab and Imaging Results to: Dr. Desean Hernandez - - Follow Up Care Current Providers and Referrals: Angel Medrano MD [Primary Care Provider] - Syd oSmmers MD [Doctor of Podiatric Medicine] -
[2016-06-30] MEDS: INSULIN GLARGINE 100 UNITS/ML SYRINGE SC SCH (09:26)
[2016-06-30] MEDS: CHOLECALCIFEROL VIT D3 1,000 UNITS TAB PO SCH (09:36)
[2016-06-30] MEDS: DILTIAZEM SR 90 MG CAP PO SCH (09:36)
[2016-06-30] MEDS: ASCORBIC ACID 500 MG TAB PO SCH (09:36)
[2016-06-30] MEDS: SODIUM CHLORIDE 1,000 MG TAB PO SCH (09:36)
[2016-06-30] MEDS: METOPROLOL SUCCINATE XR 50 MG TAB PO SCH (09:36)
[2016-06-30] MEDS: LISINOPRIL 5 MG TAB PO SCH (09:36)
[2016-06-30 09:37] VITALS: PULSE 68
[2016-06-30] MEDS: GABAPENTIN 100 MG CAP PO SCH (09:37)
[2016-06-30] MEDS: WARFARIN SODIUM 3 MG TAB PO SCH (09:37)
[2016-06-30] MEDS: IRON POLYSAC/IRON HEME 28 MG TAB PO SCH (09:37)
[2016-06-30] MEDS: OMEGA-3 FATTY ACIDS 1,000 MG CAP PO SCH (09:37)
[2016-06-30] MEDS: ASPIRIN EC 81 MG TAB PO SCH (09:37)
[2016-06-30] MEDS: INSULIN LISPRO 100 UNIT/ML SC SCH ×2 (09:39→12:54)
[2016-06-30] MEDS: DIGOXIN 250 MCG TAB PO SCH (09:40)
--- NOTE | 2016-06-30 10:15 | GDS ---
[f rep st] DISCHARGE SUMMARY DISCHARGE DIAGNOSES: 1. Left heel osteomyelitis, status post debridement, on Zosyn. 2. Diarrhea. 3. Persistent hyperglycemia. 4. Hypotension. 5. Iron-deficiency anemia. 6. Coccyx pressure ulcer, present on admission. 7. Acute on chronic hyponatremia. 8. Diabetes. 9. Atrial fibrillation, rate controlled. CONSULTATIONS: 1. Syd Sommers. 2. Dr. Desean Hernandez. BRIEF SUMMARY: The patient is a 81-year-old male with a longstanding history of diabetes as well as suspected left heel osteomyelitis. He was to undergo a partial calcanectomy by Dr. Sommers on admission. This was cancelled when he was found to have a blood sugar of greater than 300. He was admitted. His sugars were managed. He was seen and evaluated by Dr. Sommers and had surgery the next day, on 06/22/2016. The patient has done well from a surgical standpoint. During his stay, he developed episodes of diarrhea. Stool studies were checked ,which were negative for C difficile. I suspect it could have been related to the metformin. He also has ongoing anemia, and this will need further evaluation in the outpatient setting. HOSPITAL COURSE: 1. Diarrhea. C difficile was negative. His metformin was held. 2. Persistent hyperglycemia. This is much improved. He is on sliding scale insulin. 3. Hypotension. He is on metoprolol and enalapril. He has improved after fluid boluses. 4. Left heel osteomyelitis, status post debridement. He is on Zosyn. 5. Iron-deficiency anemia. Stool occult blood screen was negative. He has been started on oral iron. 6. Coccyx pressure ulcer. This was present on admission. He will get wound care at the alf facility. 7. Acute on chronic hyponatremia. This is much improved. He is on salt tabs. 8. Diabetes type 2, on sliding scale. 9. Atrial fibrillation history. INR was therapeutic yesterday. Will have this monitored at the alf facility. PENDING LABS AND TESTS: None. CONDITION ON DISCHARGE: Stable. Blood pressure is 117/53. Heart rate is 70. Respiratory rate is 16. O2 sats on room air are 92%. Temperature 36.4 Celsius. DISCHARGE MEDICATIONS: Please see the EMR. DISCHARGE INSTRUCTIONS: 1. He will continue IV antibiotics at the alf facility. Lab results will be called to Dr. Hernandez. 2. To follow up with Dr. Sommers in regard to his left heel. Greater than 30 minutes discharging and coordinating care. /[id number]/[id number]
[2016-06-30] MEDS: COLLAGENASE 30 GM OINTMENT TP SCH (12:15)
== END 2016-06-30 14:10 | DRG 623 ==
LOC: FSGY 08:08 → F3E 11:23 → F3N 14:38 → F3E 06-22 18:36
PROVIDERS: ADMIT Podiatrist Primary Podiatric Medicine; ATTEND Hospitalist
DX: E11.621 Type 2 diabetes mellitus with foot ulcer (principal); L97.424 Non-pressure chronic ulcer of left heel and midfoot with necrosis of bone; L02.612 Cutaneous abscess of left foot; E11.69 Type 2 diabetes mellitus with other specified complication; M86.9 Osteomyelitis, unspecified; E87.1 Hypo-osmolality and hyponatremia; L89.150 Pressure ulcer of sacral region, unstageable; I73.9 Peripheral vascular disease, unspecified; E11.65 Type 2 diabetes mellitus with hyperglycemia; R19.7 Diarrhea, unspecified; D50.9 Iron deficiency anemia, unspecified; I25.10 Atherosclerotic heart disease of native coronary artery without angina pectoris; I25.5 Ischemic cardiomyopathy; I48.91 Unspecified atrial fibrillation; I11.0 Hypertensive heart disease with heart failure; I50.9 Heart failure, unspecified; Z95.0 Presence of cardiac pacemaker; Z89.511 Acquired absence of right leg below knee
CPT/HCPCS: 82947-QW; 97162-GP; 97166-GO; 97530-GO; 97530-GP; 97535-GO; C1713; G8987-GO-CK; G8988-GO-CJ; J0690; J1650; J1815; J2543

== ENCOUNTER 2016-07-20 14:39 | Inpatient (IN) | payer OTHER ==
--- NOTE | 2016-07-20 15:09 | EDPHY ---
H & P Time Seen by Provider: 07/20/16 14:50 HPI/ROS: CHIEF COMPLAINT: Extremity swelling HISTORY OF PRESENT ILLNESS: This patient is a 81-year-old male with a longstanding history of diabetes mellitus with complications of left heel osteomyelitis and right BKA, atrial fibrillation, and congestive heart failure who was referred to the Emergency Department by Dr. Desean Hernandez who examined him in his office today and is concerned that he is having a reaction to Zosyn ( which he has been on for treatment of a left heel osteomyelitis). Dr. Osman noted full body rash along with anasarca. Patient himself has complaints of increased extremity swelling beginning one week prior to arrival and waxing and waning over time. He has a history of right BKA (February 2016) and multiple wounds for which he is followed by the wound care clinic; he also describes weeping wounds covering both arms over the past two weeks. Upon arrival today, he describes associated dyspnea and intermittent circumferential abdominal pain beginning one hour prior to arrival. He also reports diarrhea over the past few days. He denies nausea or vomiting, fever or chills, or additional complaints. He has been receiving Zosyn, which is felt to be the offending agent; Dr. Hernandez recommends discontinuing this medication as of today. REVIEW OF SYSTEMS: A 10 point review of systems was performed and is negative with the exception of the elements mentioned in the history of present illness. Source: Patient, group home records, Old records - Personal History Tetanus Vaccine Date: 4-5 YEARS AGO - Medical/Surgical History PMH: 1. Diabetes mellitus, recent admission for hyperglycemia/osteomyelitis on 2016 2. 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 Persistent atrial fibrillation, rate controlled 4. Chronic kidney disease 5. Congestive heart failure 6. History of CVA 7. History of sepsis 8. Hypertension 9. Hyperlipidemia 10. Hyponatremia 11. Normocytic anemia Prior medical records reviewed by myself, including most recent admission for hyperglycemia/osteomyelitis on 06/21/2016. 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 No alcohol use. - Physical Exam Exam: General Appearance: Alert, mild distress. Bradycardic at 46; blood pressure 91/ 51; respiratory rate 24. Eyes: Pupils equal and round, no conjunctival injection, no discharge. ENT, Mouth: Mucous membranes are slightly dry, no oropharyngeal erythema or edema. No mucosal lesions. Neck: No lymphadenopathy. Respiratory: Lungs are clear to auscultation; no wheezes, rales, or rhonchi. Cardiovascular: bradycardia; no murmur, rub, or gallop. Gastrointestinal: Abdomen is soft and non tender, anasarca, no masses or organomegaly, bowel sounds normal. Skin: Flaking skin over extremities and face, edema of all extremities. Lower extremities are cool to touch. Skin is otherwise warm and dry. Back: Nontender to palpation over the thoracolumbar spine. Extremities:Pitting edema both arms delete extending distally to the hand with extensive weeping and sloughing. Right BKA. Left foot is wrapped with COBAN. Pulses: 1+ dorsalis pedis pulse on the left. Neurological: Alert and oriented. Moving all extremities spontaneously. Left toes with decreased sensation. Psychiatric: Normal affect. Constitutional: Initial Vital Signs Temperature (C) 36 C 07/20/16 14:39 Heart Rate 46 L 07/20/16 14:39 Respiratory Rate 24 H 07/20/16 14:39 Blood Pressure 91/51 L 07/20/16 14:39 O2 Sat (%) 97 07/20/16 14:39 O2 Delivery Mode Room Air Allergies/Adverse Reactions: No Known Allergies Allergy (Verified 07/20/16 14:57) Home Medications: Medication Instructions Recorded Acetaminophen [Tylenol 325mg (*)] 650 mg PO Q4H PRN 07/20/16 Ascorbic Acid [Vitamin C 500 mg 500 mg PO DAILY 07/20/16 (*)] Aspirin EC [Aspirin EC 81 mg (*)] 81 mg PO DAILY 07/20/16 Atorvastatin Calcium [Lipitor 20 20 mg PO HS 07/20/16 mg (*)] Cholecalciferol Vit D3 [Vitamin D3 1,000 units PO BID 07/20/16 (*)] DILTIAZEM HCL 90 mg PO DAILY 07/20/16 Digoxin [Lanoxin 125 mcg (RX)] 125 mcg PO Q2D 07/20/16 Digoxin [Lanoxin 250 mcg (RX)] 250 mcg PO Q2D 07/20/16 Furosemide [Lasix 40 MG (*)] 40 mg PO DAILY 07/20/16 Gabapentin [Neurontin 100 MG (*)] 200 mg PO BID 07/20/16 Gabapentin [Neurontin 300 MG (*)] 300 mg PO HS 07/20/16 Insulin Glargine,Hum.rec.anlog 25 unit SQ HS 07/20/16 [Basaglar Kwikpen U-100] Lisinopril [Zestril 2.5 mg (*)] 2.5 mg PO DAILY 07/20/16 Metoprolol Succinate Xr [Toprol Xl 50 mg PO DAILY 07/20/16 50 mg (*)] [place]-3 Fatty Acids [Fish Oil 1000 1,000 mg PO BID 07/20/16 mg (*)] Sodium Chloride [Salt Tablet] 1 gm PO BID 07/20/16 metFORMIN HCL [Metformin HCl] 500 mg PO BID 07/20/16 oxyCODONE IR [Oxycodone Ir (*)] 5 - 10 mg PO Q4H PRN 07/20/16 Medical Decision Making - Diagnostics Imaging Results: Imaging Impressions Chest X-Ray 07/20/16 15:20 Impression: 1. Stable positioning of a pacemaker with persistent cardiomegaly and peribronchial thickening with mild pulmonary venous hypertension, but no evidence of pulmonary edema. 2. Left basilar linear subsegmental atelectasis versus scar. Abdomen/Pelvis CT 07/20/16 16:32 Impression: 1. No intra-abdominal fluid collection or mass or bleed. 2. Cholelithiasis, unchanged. 3. Extensive vascular calcifications, unchanged. 4. Anasarca, worse compared to prior study. 5. Distended sigmoid colon and rectum, more so compared to prior study, without associated wall thickening. Findings and recommendations discussed with Dr. Maddie Cantor at 1716 hour, 07/20/2016. Final report concurs with initial preliminary interpretation. Attention: This examination does not use radiographic contrast, and as such, provides only a limited evaluation of the abdomen, pelvis, and retroperitoneum. If there is further clinical suspicion for pathological conditions, a complete CT evaluation of the abdomen and pelvis utilizing intravenous, oral, and rectal contrast should be considered. Imaging: I viewed and interpreted images myself (non-acute) ED Course/Re-evaluation: This 81-year-old male with complicated medical history presents with diffuse skin rash and extremity swelling acutely increased from baseline. He was referred to the ED by Dr. Desean Hernandez who suspects that the patient is suffering from hypersensitivity reaction to Zosyn. The patient's skin reaction has developed over the past week. At time of arrival, the patient is bradycardic, tachypneic, mildly hypotensive (at baseline for him), and appears in mild distress. He is afebrile. He has flaking of the skin, pitting edema to both upper extremities and to his left lower extremity (right BKA secondary to diabetic ulcer). I reviewed recent admission on 06/21: Partial calcanectomy performed on 06/22. [facility] on Zosyn. Diarrhea was present during his recent admission; stool culture was obtained at that time and negative for c diff . He tells me that he continues with intermittent diarrhea. Will proceed with labs and chest x-ray. I have discussed the case with Dr. Reynaga, hospitalist, who is aware of this case and will plan for admission. Labs reviewed: WBC acutely elevated at 18.65 as compared to 5.5 on 06/29. INR is elevated at 7.39 compared to 2.40 on 06/29. He is anemic at baseline. His hematocrit and hemoglobin have actually increased since last visit. Kidney function labs indicate an increased BUN of 49 and increased creatinine of 2.9 as compared to 17 and 1.0 respectively on 06/29. He is hyponatremic at 122 (with a history of chronic hyponatremia). Chest x-ray reviewed--no pulmonary edema. Patient evaluated hourly while in the emergency department. When he was seen at 1630, he was again complaining of abdominal pain. I have examined his abdomen 3 times. He complains of pain but there is no tenderness with palpation. He does have anasarca as noted in the physical exam. With his INR elevated at 7.39, I am concerned about intra-abdominal bleeding and CT scan has been ordered. 1637: I discussed the case again with Dr. Reynaga who is aware of labs and will visit the patient in the ED. Echocardiogram has been ordered per his request. 1643: Consultation with Dr. Desean Hernandez, the referring physician, who saw the patient today. He discontinued the Zosyn this morning due to skin rash suggestive of adverse reaction to the medication. I discussed ED findings and plan for admission with Dr. Hernandez who agrees. 1804: Patient is hypotensive at 70/40. He is alert and sitting up at this time. He does have a history of hypotension but usually runs in systolic range of 90- 100. I have discussed this with Dr. Reynaga, the admitting physician. At this point there is concern for sepsis. Fluid management will be difficult in this patient as he is clearly fluid overloaded. However, he does not have pulmonary edema on his chest x-ray. He has had an increase in weight of 16 lb but it seems that he is 3rd spacing. His blood pressure will not support diuretics. Because of his hypotension he is being given 500 mL of normal saline. Lovelace Francisco and TEN are of concern in this patient. His skin is flaking but not sloughing. He has no intraoral mucosal lesions. He has not been febrile. He had some mild improvement in blood pressure with administration of IV fluids , however this was short lived. He will receive an additional 500 mL so fluid. This will be followed by albumin if he continues to be hypotensive. His lactate is elevated at 3.4. He does qualify for a diagnosis of severe sepsis but in consultation with the admitting physician, Dr. Reynaga, Dr. Hernandez, and Cardiology, it is agreed that he will not receive the usual fluid bolus. He has a PICC line in place. He will receive pressors if needed. Antibiotic treatment has been discussed with Dr. Hernandez. Antibiotics were not initially recommended he but given his hypotension it is agreed that daptomycin might be needed. Antibiotic treatment is being guided by Dr. Hernandez's recommendations. Again, in this complicated patient, the the treatment recommended does not follow the usual sepsis protocol. He was serially examined during his stay in the emergency department. At no time was his mentation affected. Differential Diagnosis: I considered a differential diagnosis that includes but is not limited to sepsis , Lovelace Francisco, toxic epidermal necrolysis, staphylococcal scalded skin syndrome, and drug reaction. Critical Care Time: Critical care time spent by me, Dr. Cantor, exclusively with this patient was 45 minutes, exclusive of PA time and exclusive of procedures. The organ systems at risk were the cardiovascular and renal systems and I consulted with the patient's primary care provider, consulted multiple times with the hospitalist, evaluated the patient for sepsis and provided subsequent IV medications for treatment, and evaluated the patient serially in the ED to prevent worsening of the patient's condition. - Data Points Laboratory Results: Laboratory Results 07/20/16 15:45 07/20/16 15:45 07/20/16 07/20/16 07/20/16 15:45 15:45 15:45 WBC 18.65 10^3/uL H 10^3/uL (3.80-9.50) RBC 4.53 10^6/uL 10^6/uL (4.40-6.38) Hgb 12.4 g/dL L g/dL (13.7-17.5) Hct 36.5 % L % (40.0-51.0) MCV 80.6 fL L fL (81.5-99.8) MCH 27.4 pg L pg (27.9-34.1) MCHC 34.0 g/dL g/dL (32.4-36.7) RDW 20.0 % H % (11.5-15.2) Plt Count 229 10^3/uL 10^3/uL (150-400) MPV 9.4 fL fL (8.7-11.7) Neut % (Auto) Not Reported Lymph % (Auto) Not Reported [place] % (Auto) Not Reported Eos % (Auto) Not Reported Baso % (Auto) Not Reported Nucleat RBC Rel Count 0.0 % % (0.0-0.2) Absolute Neuts (auto) Not Reported Absolute Lymphs (auto) Not Reported Absolute Monos (auto) Not Reported Absolute Eos (auto) Not Reported Absolute Basos (auto) Not Reported Absolute Nucleated RBC 0.00 10^3/uL 10^3/uL (0-0.01) Immature Gran % Not Reported Seg Neutrophils % 55 % % Band Neutrophils % 6 % % Lymphocytes % 3 % % Monocytes % 13 % % Eosinophils % 19 % % Metamyelocytes % 1 % % Myelocytes % 1 % % Promyelocytes % 2 % % Immature Gran # Not Reported Absolute Seg Neuts 10.26 10^/uL H 10^/uL (1.70-6.50) Absolute Band Neuts 1.12 10^3/uL H 10^3/uL (0.00-0.70) Absolute Lymphocytes 0.56 10^3/uL L 10^3/uL (1.00-3.00) Absolute Monocytes 2.42 10^3/uL H 10^3/uL (0.30-0.80) Absolute Eosinophils 3.54 10^3/uL H 10^3/uL (0.03-0.40) Absolute Metamyelocyte 0.19 10^3/mL H 10^3/mL (0.00-0.00) Absolute Myelocytes 0.19 10^3/mL H 10^3/mL (0.00-0.00) Absolute Promyelocytes 0.37 10^3/uL H 10^3/uL (0.00-0.00) Toxic Vacuolation PRESENT H Platelet Estimate ADEQUATE (ADEQ) Microcytic Cells 1+ H Echinocytes 2+ H Smear Review By Pending PT 64.9 SEC H SEC (12.0-15.0) INR 7.39 H* (0.83-1.16) APTT 85.5 SEC H SEC (23.0-38.0) Sodium 122 mEq/L L mEq/L (134-144) Potassium 4.2 mEq/L mEq/L (3.5-5.2) Chloride 96 mEq/L L mEq/L (97-110) Carbon Dioxide 15 mEq/l L mEq/l (22-31) Anion Gap 11 mEq/L mEq/L (8-16) BUN 49 mg/dL H mg/dL (7-23) Creatinine 2.9 mg/dL H mg/dL (0.7-1.3) Estimated GFR 21 Glucose 126 mg/dL H mg/dL (70-100) Calcium 8.9 mg/dL mg/dL (8.5-10.4) Total Bilirubin 0.6 mg/dL mg/dL (0.1-1.4) AST 47 IU/L IU/L (17-59) ALT 45 IU/L IU/L (21-72) Alkaline Phosphatase 105 IU/L IU/L (38-126) NT-Pro-B Natriuret Pep 45119 pg/mL H pg/mL (0-450) Total Protein 4.5 g/dL L g/dL (6.3-8.2) Albumin 2.1 g/dL L g/dL (3.5-5.0) Digoxin 2.0 ng/mL ng/mL (0.8-2.0) Medications Given: Discontinued Medications Sodium Chloride (Ns) 500 mls @ 1,000 mls/hr IV ONCE ONE PRN Reason: Protocol Stop: 07/20/16 18:29 Last Admin: 07/20/16 18:00 Dose: 500 mls Sodium Chloride (Ns) 500 mls @ 0 mls/hr IV ONCE ONE PRN Reason: Wide Open Stop: 07/20/16 19:20 Last Admin: 07/20/16 20:00 Dose: 500 mls Daptomycin 300 mg/ Sodium (Chloride) 106 mls @ 200 mls/hr IV EDNOW ONE PRN Reason: Protocol Stop: 07/20/16 21:31 Last Admin: 07/21/16 00:43 Dose: 106 mls Sodium Chloride (Ns) 500 mls @ 0 mls/hr IV ONCE ONE PRN Reason: Wide Open Stop: 07/20/16 19:44 Last Admin: 07/20/16 20:00 Dose: 500 mls Sodium Chloride (Ns) 1,000 mls @ 0 mls/hr IV ONCE ONE; Wide Open PRN Reason: Protocol Stop: 07/20/16 20:10 Last Admin: 07/20/16 20:40 Dose: Not Given Phytonadione (Vitamin K) 5 mg PO ONCE ONE Stop: 07/20/16 19:54 Last Admin: 07/20/16 21:18 Dose: 5 mg Departure - Departure Disposition: [facility] Clinical Impression: Hyponatremia, Elevated INR, Fluid retention, Anasarca Elevated WBC count Qualifiers: Leukocytosis type: unspecified Qualified Code(s): D72.829 - Elevated white blood cell count, unspecified Sepsis Qualifiers: Sepsis type: sepsis due to unspecified organism Qualified Code(s): A41.9 - Sepsis, unspecified organism Drug reaction Qualifiers: Encounter type: initial encounter Qualified Code(s): T88.7XXA - Unspecified adverse effect of drug or medicament, initial encounter Condition: Serious Report Scribed for: Maddie Cantor Report Scribed by: Trisha Judd Date of Report: 07/20/16 Time of Report: 15:13 Physician Review and Approval Statement: 07/20/16 15:39 Portions of this note were transcribed by the certified ophthalmic medical technician. I, Dr. Maddie Cantor, personally performed the history, physical exam, and medical decision- making; and confirmed the accuracy of the information in the transcribed note.
[2016-07-20 15:58] LABS: ADD DIFF? YES; ADD MORPH? NO; ADD SCAN? NO; ATYPICAL LYMPHOCYTE FLAG 0 (0-99); FRAGMENT RBC FLAG 20 (0-99); HEMATOCRIT 36.5 % (40.0-51.0); HEMOGLOBIN 12.4 g/dL (13.7-17.5); LEFT SHIFT FLG 70 (0-99); LIPEMIA HEMOLYSIS FLAG 90 (0-99); MEAN CELL HEMOGLOBIN 27.4 pg (27.9-34.1); MEAN CELL VOLUME 80.6 fL (81.5-99.8); MEAN PLATELET VOLUME 9.4 fL (8.7-11.7); PLATELET CLUMPS FLAG 0 (0-99); PLATELET COUNT 229 10^3/uL (150-400); RED BLOOD CELL COUNT 4.53 10^6/uL (4.40-6.38)
[2016-07-20 16:15] LABS: PROTIME(PATIENT) 64.9 SEC (12.0-15.0)
[2016-07-20 16:16] LABS: ALANINE AMINOTRANSFERASE 45 IU/L (21-72); ALBUMIN 2.1 g/dL (3.5-5.0); ALKALINE PHOSPHATASE 105 IU/L (38-126); ANION GAP 11 mEq/L (8-16); APTT 85.5 SEC (23.0-38.0); ASPARTATE AMINOTRANSFERASE 47 IU/L (17-59); BILIRUBIN,TOTAL 0.6 mg/dL (0.1-1.4); CALCIUM 8.9 mg/dL (8.5-10.4); CARBON DIOXIDE 15 mEq/l (22-31); CHLORIDE 96 mEq/L (97-110); CREATININE 2.9 mg/dL (0.7-1.3); GLOMERULAR FILTRATION RATE 21; GLUCOSE 126 mg/dL (70-100); POTASSIUM 4.2 mEq/L (3.5-5.2); SODIUM 122 mEq/L (134-144); TOTAL PROTEIN 4.5 g/dL (6.3-8.2)
[2016-07-20 16:21] LABS: INR 7.39 (0.83-1.16)
--- NOTE | 2016-07-20 17:23 | PDCARCONS ---
Cardiology Consult Reason for Consult: Concerns for heart failure Chief Complaint: Abdominal pains with associated diarrhea Requesting Physician: Hospitalist team History of Present Illness: Patient is a 81 y/o male with complicated medical/cardiovascular history including CAD s/p PCI (numerous stents with noted residual critical lesions), ischaemic CMP (EF of 20-25% with last echocardiogram in mid June 2016), ICD for iCMP, DM, HTN, HLP, chronic atrial fibrillation with history of CVA (on coumadin with [id number] score of 8), chronic renal insufficiency, and relatively recent admission for left lower extremity osteomyelitis, who presents to ER from outpatient ID office after concerns of "extremity swelling" , which has been noted for the past several weeks (waxing and waning, but ultimately progressive). Furthermore, the patient has complaints of abdominal pains with associated diarrhea. No chest pains or pressure. No PND or orthopnea (patient is lying flat in the ER). Weights are up about 8 kg over the past month. Elevation in BNP was noted in past (13,700 in 2016) and continued elevation noted today (14,300). Diffuse cutaneous sloughing and erythema with weeping and oozing. ER note from today was reviewed as well as discharge summary from 06/30/16, and outpatient cardiology notes from Dr. Mary Frazier (06/20/16). In the past, ejection fraction was noted to be 20-25% and there were reports of "mod to severe and mild to mod MR". Shortness of breath has been noted, and sounds as if there was some progression of the symptoms just prior to decisions to have ER assessment. Remainder of the 12 point review of systems (outside of that which was mentioned above) were unremarkable. History Information - Allergies/Home Medication List Allergies/Adverse Reactions: No Known Allergies Allergy (Verified 07/20/16 14:57) Home Medications: Acetaminophen [Tylenol 325mg (*)] 650 mg PO Q4H PRN 07/20/16 [Last Taken Unknown ] Ascorbic Acid [Vitamin C 500 mg (*)] 500 mg PO DAILY 07/20/16 [Last Taken Unknown] Aspirin EC [Aspirin EC 81 mg (*)] 81 mg PO DAILY 07/20/16 [Last Taken Unknown] Atorvastatin Calcium [Lipitor 20 mg (*)] 20 mg PO HS 07/20/16 [Last Taken Unknown] Cholecalciferol Vit D3 [Vitamin D3 (*)] 1,000 units PO BID 07/20/16 [Last Taken Unknown] DILTIAZEM HCL 90 mg PO DAILY 07/20/16 [Last Taken Unknown] Digoxin [Lanoxin 125 mcg (RX)] 125 mcg PO Q2D 07/20/16 [Last Taken 07/20/16] Digoxin [Lanoxin 250 mcg (RX)] 250 mcg PO Q2D 07/20/16 [Last Taken 07/18/16] Furosemide [Lasix 40 MG (*)] 40 mg PO DAILY 07/20/16 [Last Taken Unknown] Gabapentin [Neurontin 100 MG (*)] 200 mg PO BID 07/20/16 [Last Taken Unknown] Gabapentin [Neurontin 300 MG (*)] 300 mg PO HS 07/20/16 [Last Taken 07/19/16] Insulin Glargine,Hum.rec.anlog [Basaglar Kwikpen U-100] 25 unit SQ HS 07/20/16 [ Last Taken 07/19/16] Lisinopril [Zestril 2.5 mg (*)] 2.5 mg PO DAILY 07/20/16 [Last Taken Unknown] Metoprolol Succinate Xr [Toprol Xl 50 mg (*)] 50 mg PO DAILY 07/20/16 [Last Taken Unknown] [place]-3 Fatty Acids [Fish Oil 1000 mg (*)] 1,000 mg PO BID 07/20/16 [Last Taken Unknown] Sodium Chloride [Salt Tablet] 1 gm PO BID 07/20/16 [Last Taken Unknown] metFORMIN HCL [Metformin HCl] 500 mg PO BID 07/20/16 [Last Taken Unknown] oxyCODONE IR [Oxycodone Ir (*)] 5 - 10 mg PO Q4H PRN 07/20/16 [Last Taken Unknown] I have personally reviewed and updated: family history, medical history, social history, surgical history - Past Medical History atrial fibrillation, coronary artery disease, CHF, CVA, diabetes type 1, ESRD, hypertension, hyperlipidemia, myocardial infarction Additional medical history: renal insufficiency, stroke, osteomyelitis - Surgical History Reports: amputation, coronary stent - Family History Positive for: non-pertinent - Social History Smoking Status: Former smoker Alcohol Use: None Drug Use: None Cardiac History - Cardiac History Past Cardiac History: CAD, PCI, OTHER (mod to severe ; mild to mod MR) Cardiac Risk Factors: hypertension (>140/90), lipidemia, diabetes mellitus, age > 65, male Timing/Duration: Weeks Severity: moderate Severity Scale: 5 Location: abdomen Activities at Onset: activity Modifying Factors: improves with: defecating, oxygen, rest Associated Symptoms: malaise, rash, shortness of breath, weakness MIRNA Risk Evaluation age greater or equal to 65: yes greater or equal to 3 CAD risk factors: yes known CAD(stenosis greater or eqaul to 50%): yes ASA use in past 7 days: yes severe angina(greater or equal to 2 episodes in 24hrs): no Physical Exam Temp Pulse Resp BP Pulse Ox 36 C 46 L 24 H 91/51 L 97 07/20/16 14:39 07/20/16 14:39 07/20/16 14:39 07/20/16 14:39 07/20/16 14:39 Constitutional: chronically ill appearing, uncomfortable, unkempt Eyes: PERRL Ears, Nose, Mouth, Throat: moist mucous membranes, poor dentition Cardiovascular: irregularly irregular, JVD, edema, other (murmur) Peripheral Pulses: 2+: carotid (R), carotid (L) Respiratory: reduced air movement, expiratory wheeze, inspiratory crackles, dullness to percussion Gastrointestinal: tenderness, distension Skin: erythema, fluctuance, rash, other (weeping and oozing) Musculoskeletal: generalized weakness Neurologic: AAOx3, sensation intact bilaterally, weakness, CN II-XII Intact Psychiatric: interacting appropriately, not anxious, flat affect Lab and Imaging 07/20/16 15:45 07/20/16 15:45 WBC 18.65 10^3/uL (3.80-9.50) H 07/20/16 15:45 RBC 4.53 10^6/uL (4.40-6.38) 07/20/16 15:45 Hgb 12.4 g/dL (13.7-17.5) L 07/20/16 15:45 Hct 36.5 % (40.0-51.0) L 07/20/16 15:45 MCV 80.6 fL (81.5-99.8) L 07/20/16 15:45 MCH 27.4 pg (27.9-34.1) L 07/20/16 15:45 MCHC 34.0 g/dL (32.4-36.7) 07/20/16 15:45 RDW 20.0 % (11.5-15.2) H 07/20/16 15:45 Plt Count 229 10^3/uL (150-400) 07/20/16 15:45 MPV 9.4 fL (8.7-11.7) 07/20/16 15:45 Neut % (Auto) Not Reported 07/20/16 15:45 Lymph % (Auto) Not Reported 07/20/16 15:45 [place] % (Auto) Not Reported 07/20/16 15:45 Eos % (Auto) Not Reported 07/20/16 15:45 Baso % (Auto) Not Reported 07/20/16 15:45 Nucleat RBC Rel Count 0.0 % (0.0-0.2) 07/20/16 15:45 Absolute Neuts (auto) Not Reported 07/20/16 15:45 Absolute Lymphs (auto) Not Reported 07/20/16 15:45 Absolute Monos (auto) Not Reported 07/20/16 15:45 Absolute Eos (auto) Not Reported 07/20/16 15:45 Absolute Basos (auto) Not Reported 07/20/16 15:45 Absolute Nucleated RBC 0.00 10^3/uL (0-0.01) 07/20/16 15:45 Immature Gran % Not Reported 07/20/16 15:45 Immature Gran # Not Reported 07/20/16 15:45 PT 64.9 SEC (12.0-15.0) H 07/20/16 15:45 INR 7.39 (0.83-1.16) H* 07/20/16 15:45 APTT 85.5 SEC (23.0-38.0) H 07/20/16 15:45 Sodium 122 mEq/L (134-144) L 07/20/16 15:45 Potassium 4.2 mEq/L (3.5-5.2) 07/20/16 15:45 Chloride 96 mEq/L (97-110) L 07/20/16 15:45 Carbon Dioxide 15 mEq/l (22-31) L 07/20/16 15:45 Anion Gap 11 mEq/L (8-16) 06/09/17 15:45 BUN 49 mg/dL (7-23) H 07/20/16 15:45 Creatinine 2.9 mg/dL (0.7-1.3) H 07/20/16 15:45 Estimated GFR 21 07/20/16 15:45 Glucose 126 mg/dL (70-100) H 07/20/16 15:45 Calcium 8.9 mg/dL (8.5-10.4) 07/20/16 15:45 Total Bilirubin 0.6 mg/dL (0.1-1.4) 07/20/16 15:45 AST 47 IU/L (17-59) 07/20/16 15:45 ALT 45 IU/L (21-72) 07/20/16 15:45 Alkaline Phosphatase 105 IU/L (38-126) 07/20/16 15:45 NT-Pro-B Natriuret Pep 39680 pg/mL (0-450) H 07/20/16 15:45 Total Protein 4.5 g/dL (6.3-8.2) L 07/20/16 15:45 Albumin 2.1 g/dL (3.5-5.0) L 07/20/16 15:45 Digoxin 2.0 ng/mL (0.8-2.0) 07/20/16 15:45 Visualized and Interpreted Chest x-ray results: Yes Chest X-ray Interpretation: other (cardiomegaly with atelectasis) EKG additional interpertation: no ECG has been obtained Echocardiogram: Bedside echo: moderate suppression of LVEF (30-35%) with global hypokinesis. moderate to severe aortic sclerosis with probable stenosis. mod TR. no pericardial effusion. A/P Assessment: Patient is a 81 y/o male with longstanding cardiovascular history (CAD/PCI/iCMP/ ICD), atrial fibrillation (chronically), DM, HTN, HLP, chronic infections (osteo ), and renal insufficiency (appears acute with review of past admission), who presented to [facility] ER after being seen in wound care/ID with complaints of fluid accumulation and abdominal pains. CT of abdomen without gross pathology to explain the pains that were being noted. Weight is up about 8 kg (if weights are reliable) in comparison to the weights noted at the time of the last admission/discharge. INR was supratherapeutic (>7), would query antibiotic usage. Elevation to BNP is noted, but this is not too far off the last BNP from one year ago. Echocardiogram with stable (if anything, improved) left ventricular systolic ejection fraction. No progressive valve pathology is noted. ECG needs to be completed, but the patient's skin infection has made this testing difficult. Troponins are pending, but elevation is expected given the renal insufficiency that is noted. Ongoing ID following. Likely stool culture (history of C. Diff). Would attempt light diuresis tonight (would not work aggressively with aortic valve pathology - stenosis in particular). Plan: (1) 5 mg of SQ vit K and hold the coumadin (2) Would attempt 20 mg IV lasix - patient has been on 20 mg PO in outpatient setting (3) Serial cardiac biomarkers (4) INR reassessment in the morning (5) Lipitor should continue with HLP and CAD/PCI history (6) Entresto should continue given CHF history (7) Consider reduction in the dose of metoprolol (from 50 mg per day to 25 mg per day) (8) Spironolactone to continue (25 mg per day) (9) Would hold digoxin pending assessment of levels (10) Patient needs to have an ECG will follow this patient over hospital stay
[2016-07-20 17:25] LABS: ECHINOCYTES 2+; MICROCYTES 1+; PLATELET ESTIMATE ADEQUATE (ADEQ); TOXIC VACUOLIZATION PRESENT
[2016-07-20] MEDS ORDERED: ONDANSETRON 4 MG/2 ML VIAL IVP PRN (17:46)
[2016-07-20] MEDS ORDERED: ONDANSETRON DISINTEGRATING 4 MG TAB PO PRN (17:46)
[2016-07-20] MEDS ORDERED: ACETAMINOPHEN 325 MG TAB PO PRN (17:46)
[2016-07-20] MEDS ORDERED: oxyCODONE IR 5 MG TAB PO PRN (17:49)
[2016-07-20] MEDS ORDERED: NS 500 ML IV ONE ×3 (18:00→19:43)
[2016-07-20] MEDS ORDERED: LIDOCAINE 2% JELLY 5 ML TUBE ONE (19:41)
[2016-07-20] MEDS ORDERED: PHYTONADIONE 2.5 MG/2.5 ML ORAL UDL PO ONE (19:53)
[2016-07-20] MEDS ORDERED: NS 1,000 ML IV ONE (20:09)
[2016-07-20 20:16] LABS: COLOR YELLOW; LEUKOCYTE ESTERASE,URINE NEGATIVE (NEGATIVE); NITRITE,URINE NEGATIVE (NEGATIVE)
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
[2016-07-20] MEDS ORDERED: DAPTOmycin 300 MG in NS 100 ML IV ONE (21:00)
[2016-07-20] MEDS ORDERED: OMEGA-3 FATTY ACIDS 1,000 MG CAP PO SCH (21:00)
[2016-07-20] MEDS ORDERED: [UNRECOGNIZED DRUG - OTHER] SQ SCH (21:00)
[2016-07-20] MEDS ORDERED: ATORVASTATIN CALCIUM 20 MG TAB PO SCH (21:00)
[2016-07-20] MEDS ORDERED: INSULIN GLARGINE HUM REC ANLOG 15 UNIT SQ SCH (21:00)
[2016-07-20] MEDS: ALBUMIN 25% 100 ML IV SCH (21:17)
[2016-07-20] MEDS ORDERED: NOREPINEPHRINE BITARTRATE 4 MG in D5W 500 ML IV SCH (21:30)
[2016-07-20 22:42] LABS: ANION GAP 11 mEq/L (8-16); CALCIUM 8.4 mg/dL (8.5-10.4); CARBON DIOXIDE 15 mEq/l (22-31); CHLORIDE 97 mEq/L (97-110); GLOMERULAR FILTRATION RATE 20; GLUCOSE 92 mg/dL (70-100); POTASSIUM 3.9 mEq/L (3.5-5.2); SODIUM 123 mEq/L (134-144)
[2016-07-20] MEDS ORDERED: NOREPINEPHRINE/NS 4 MG/500 ML BAG IV ONE (23:04)
[2016-07-20] MEDS ORDERED: ALTEPLASE 2 MG VIAL IVP PRN (23:04)
[2016-07-20] MEDS: NOREPINEPHRINE/NS 500 ML IV SCH (23:15)
[2016-07-20] MEDS: CHOLECALCIFEROL VIT D3 1,000 UNITS TAB PO SCH (23:20)
[2016-07-21] MEDS: ALBUMIN 25% 100 ML IV SCH ×2 (00:30→10:01)
[2016-07-21 01:11] LABS: MIXED VENOUS O2 SATURATION 81 % (65-75)
[2016-07-21] MEDS ORDERED: LIDOCAINE 2% JELLY 20 ML (UROJECT) ONE (01:11)
[2016-07-21 02:26] LABS: ADD DIFF? YES; ADD MORPH? NO; ADD SCAN? NO; ATYPICAL LYMPHOCYTE FLAG 0 (0-99); FRAGMENT RBC FLAG 20 (0-99); HEMATOCRIT 33.5 % (40.0-51.0); HEMOGLOBIN 11.5 g/dL (13.7-17.5); LEFT SHIFT FLG 70 (0-99); LIPEMIA HEMOLYSIS FLAG 90 (0-99); MEAN CELL HEMOGLOBIN 27.3 pg (27.9-34.1); MEAN CELL HEMOGLOBIN CONCENTR. 34.3 g/dL (32.4-36.7); MEAN CELL VOLUME 79.4 fL (81.5-99.8); MEAN PLATELET VOLUME 9.7 fL (8.7-11.7); PLATELET CLUMPS FLAG 20 (0-99); PLATELET COUNT 246 10^3/uL (150-400); RED BLOOD CELL COUNT 4.22 10^6/uL (4.40-6.38)
[2016-07-21 03:09] LABS: ANION GAP 12 mEq/L (8-16); CALCIUM 8.9 mg/dL (8.5-10.4); CARBON DIOXIDE 15 mEq/l (22-31); CHLORIDE 99 mEq/L (97-110); GLOMERULAR FILTRATION RATE 20; GLUCOSE 99 mg/dL (70-100); MAGNESIUM 1.5 mg/dL (1.6-2.3); POTASSIUM 4.1 mEq/L (3.5-5.2); SODIUM 126 mEq/L (134-144)
[2016-07-21 03:28] LABS: PROTIME(PATIENT) 80.5 SEC (12.0-15.0)
[2016-07-21 03:30] LABS: INR 9.68 (0.83-1.16)
[2016-07-21] MEDS ORDERED: PROTOCOL MAGNESIUM 1 DOSE IV PRN (03:34)
[2016-07-21] MEDS ORDERED: PROTOCOL POTASSIUM 1 DOSE MISC PRN (03:34)
[2016-07-21] MEDS ORDERED: PHYTONADIONE 10 MG in NS 50 ML IV ONE (03:53)
[2016-07-21] MEDS: NOREPINEPHRINE/NS 500 ML IV SCH (04:30)
[2016-07-21 04:37] LABS: PLATELET COUNT 260 10^3/uL (150-400)
[2016-07-21 04:38] LABS: PLATELET ESTIMATE ADEQUATE (ADEQ)
[2016-07-21 04:39] LABS: ECHINOCYTES 1+; MICROCYTES 1+; TOXIC GRANULATION PRESENT
[2016-07-21 04:44] LABS: FIBRINOGEN 278 mg/dL (214-456)
[2016-07-21] MEDS: HEPARIN 5,000 UNIT/0.5 ML SYR SC SCH ×2 (04:47→07:20)
[2016-07-21 04:54] LABS: APTT 107.4 SEC (23.0-38.0)
[2016-07-21] MEDS ORDERED: MAGNESIUM SULF 1 GM/DEXTROSE 100 ML IV ONE (08:00)
[2016-07-21 08:21] LABS: ADD DIFF? YES; ADD MORPH? NO; ADD SCAN? NO; ATYPICAL LYMPHOCYTE FLAG 0 (0-99); FRAGMENT RBC FLAG 20 (0-99); HEMATOCRIT 28.8 % (40.0-51.0); HEMOGLOBIN 10.1 g/dL (13.7-17.5); LEFT SHIFT FLG 40 (0-99); LIPEMIA HEMOLYSIS FLAG 90 (0-99); MEAN CELL HEMOGLOBIN 27.4 pg (27.9-34.1); MEAN CELL HEMOGLOBIN CONCENTR. 35.1 g/dL (32.4-36.7); MEAN CELL VOLUME 78.3 fL (81.5-99.8); MEAN PLATELET VOLUME 8.9 fL (8.7-11.7); PLATELET CLUMPS FLAG 20 (0-99); PLATELET COUNT 201 10^3/uL (150-400); RED BLOOD CELL COUNT 3.68 10^6/uL (4.40-6.38); RED CELL DISTRIBUTION WIDTH 19.7 % (11.5-15.2)
[2016-07-21 08:29] LABS: INR 3.09 (0.83-1.16); PROTIME(PATIENT) 32.3 SEC (12.0-15.0)
[2016-07-21 08:31] LABS: APTT 74.9 SEC (23.0-38.0)
[2016-07-21 08:42] LABS: ANION GAP 13 mEq/L (8-16); CALCIUM 8.8 mg/dL (8.5-10.4); CARBON DIOXIDE 15 mEq/l (22-31); CHLORIDE 99 mEq/L (97-110); GLOMERULAR FILTRATION RATE 20; GLUCOSE 84 mg/dL (70-100); POTASSIUM 3.8 mEq/L (3.5-5.2); SODIUM 127 mEq/L (134-144)
[2016-07-21] MEDS ORDERED: METOPROLOL SUCCINATE XR 50 MG TAB PO SCH (09:00)
[2016-07-21] MEDS ORDERED: DILTIAZEM 60 MG TAB PO SCH (09:00)
[2016-07-21] MEDS ORDERED: ASPIRIN EC 81 MG TAB PO SCH (09:00)
[2016-07-21] MEDS ORDERED: ASCORBIC ACID 500 MG TAB PO SCH (09:00)
[2016-07-21 09:51] LABS: MACROCYTES 1+; MICROCYTES 1+; PLATELET ESTIMATE ADEQUATE (ADEQ)
[2016-07-21] MEDS: CHOLECALCIFEROL VIT D3 1,000 UNITS TAB PO SCH (10:02)
--- NOTE | 2016-07-21 10:40 | ECHO ---
[id number] + + [address] : : [place] [address] : : [phone] + + Adult Echocardiographic Report + --+ :Name: SYBIL GASPAR RStudy Date: 07/20/2016 05:19 PM : : Hospital Admission Number: [id number] Location: ER: :: 1935 Gender: Male Height: 69 in : :Age: 81 yrs Race: WH,White Weight: 165 lb : :Reason For Study: Eval LV function : : BSA: 1.9 meters2 : :History: Pacer : + --+ MMode/2D Measurements \T\ Calculations Ao root diam: 3.7 cm LVOT diam: 2.1 cm LVOT area: 3.5 cm2 Normal Measurement Values: + + :LVIDd (3.5-5.7cm) IVSd (0.6-1.1cm) LVPWd (0.6-1.1cm) Aortic Root (2.0-3.7cm)Left Atrium (1.5-4.0cm): :LV Vol(d) (76-115ml) LV Vol(s) (29-48ml) Ejec Fraction (50-65%)PV Froy (0.6- 1.2m/s) TV Froy (0.4-1.0m/s) : :MV E Froy (0.8-1.0m/s)MV A Froy (0.3-1.0m/s)LVOT Froy (0.7-1.2m/s) Asc Ao Froy ( 0.9-1.8m/s) : + + Doppler Measurements \T\ Calculations MV E max froy: Ao V2 max: LV V1 max: TR max froy: 92.3 cm/sec 211.0 cm/sec 2.7 cm/sec 240.0 cm/sec MV A max froy: Ao max PG: LV V1 max PG: TR max P.2 cm/sec 17.8 mmHg 0.00 mmHg 23.0 mmHg MV E/A: 4.0 Ao mean PG: RAP systole: 9.0 mmHg 10.0 mmHg Ao V2 mean: RVSP(TR): 33.0 mmHg 141.0 cm/sec Ao V2 VTI: 47.9 cm KATTY(V,D): 0.04 cm2 Left Ventricle The left ventricle is normal in size. There is normal left ventricular wall thickness. EF estimate is 25-30%. Septal motion is consistent with conduction abnormality. Right Ventricle The right ventricle is normal in size and function. There is a pacemaker lead in the right ventricle. Atria The left atrium is mildly dilated. The right atrium is mildly dilated. Mitral Valve There is moderate mitral annular calcification. There is no evidence of mitral valve prolapse. There is no mitral valve stenosis. There is mild mitral regurgitation. Tricuspid Valve Normal tricuspid valve. There is moderate tricuspid regurgitation. Right ventricular systolic pressure is normal. Aortic Valve There is severe aortic valve calcification. There is no aortic insufficiency. Pulmonic Valve The pulmonic valve is normal in structure and function. There is no pulmonic valvular regurgitation. Great Vessels The aortic root is normal size. Pericardium/Pleural There is no pericardial effusion. Conclusion A complete two-dimensional transthoracic echocardiogram was performed (2D, M-mode, Doppler and color flow Doppler). EF estimate is 25-30%. Septal motion is consistent with conduction abnormality. There is a pacemaker lead in the right ventricle. The left atrium is mildly dilated. There is moderate mitral annular calcification. There is mild mitral regurgitation. There is moderate tricuspid regurgitation. Right ventricular systolic pressure is normal. There is severe aortic valve calcification. Final Reading Physician: Chente Mccain MD electronically signed on 07/21/2016 10:40 AM Ordering Physician: MEHDI ZARAGOZA Performed By: Kristine Pat, CS
[2016-07-21 11:19] VITALS: BP 100/60; PULSE 78; RESP 12; TEMP 93.2; O2SAT 96
--- NOTE | 2016-07-21 12:17 | GDS ---
[f rep st] DISCHARGE SUMMARY DIAGNOSES: 1. Allergic reaction covering majority of his skin with some sloughing of his arms and legs. 2. Chronic kidney disease stage 3. 3. History of stroke. 4. Anemia, chronic. 5. Persistent atrial fibrillation. 6. History of osteomyelitis of his foot with recent calcanectomy on 06/22/2016. 7. 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 8. Coronary artery disease. History of stents. 9. Diabetes. 10. Hypertension. 11. Dyslipidemia. 12. History of congestive heart failure. PROCEDURES DONE: 1. Abdominal and pelvic CT scan. No intraabdominal fluid collection. Extensive vascular calcifica tions and anasarca worsening compared to previous study. 2. Echocardiogram, EF of 25% to 30%. Normal right ventricular systolic pressure. HOSPITAL COURSE: The patient is a 81-year-old with a recent left heel osteomyelitis, status post de bridement, on Zosyn. He underwent partial calcanectomy by Dr. Sommers on admission 06/22/2016, an d eventually discharged on IV Zosyn. He was readmitted here with full body rash and anasarca. Symp toms started 1 week prior to arrival. He had a recent right BKA and multiple wounds, followed by [facility]. He also described weeping wounds covering both arms and legs over the past 2 w eeks. After admission the rash was noted to worsen overnight with increasing erythema covering most of his body. He remained rash free on his face, mucous membranes, and upper part of his neck and t orso. The rest of his back, chest, arms, and legs were all red with some swelling and sloughing on his lower forearms and lower legs, as well as his groin area. He remained hypothermic throughout mn s ICU stay, with a temperature in the 32.5 range. With the assistance of a Tam Hugger and warming blankets, his temperature got up to 34 with some mild hypotension needing pressor support. Because of his hypothermia, hypotension, and substantial rash, the Burn Unit at the [facility] was called, a nd they recommended transfer. He was transferred over to their facility for further evaluation and treatment. CONDITION ON DISCHARGE: Fair. Blood pressure 100/60, with a heart rate of 78, temperature is 33.9 degrees Celsius. He is 96% on 3 L. He is alert. Pain is well controlled. DISCHARGE MEDICATIONS: Please see forms. TOTAL TIME: Total time spent with patient and coordination of care and transfer is 35 minutes. /[id number]/MODL
[2016-07-21] MEDS ORDERED: INSULIN GLARGINE 100 UNITS/ML SYRINGE SC SCH (21:00)
[2016-07-22] MEDS ORDERED: DIGOXIN 125 MCG TAB PO SCH (09:00)
[2016-07-22] MEDS ORDERED: DIGOXIN 250 MCG TAB PO SCH (09:00)
== END 2016-07-21 10:50 | disposition short-term general hospital (02) | DRG 683 ==
LOC: EDUNIT# → UNDOADMIN 16:41 → F2N 20:55
PROVIDERS: ADMIT Internal Medicine; ATTEND Internal Medicine
PROC: 30233L1 Transfusion of Nonautologous Fresh Plasma into Peripheral Vein, Percutaneous Approach (ICD-10-PCS; principal; 2016-07-21)
DX: N17.9 Acute kidney failure, unspecified (principal); E87.1 Hypo-osmolality and hyponatremia; I13.0 Hypertensive heart and chronic kidney disease with heart failure and stage 1 through stage 4 chronic kidney disease, or unspecified chronic kidney disease; I50.22 Chronic systolic (congestive) heart failure; I48.1 Persistent atrial fibrillation; L27.0 Generalized skin eruption due to drugs and medicaments taken internally; T36.0X5A Adverse effect of penicillins, initial encounter; R68.0 Hypothermia, not associated with low environmental temperature; N18.3 Chronic kidney disease, stage 3 (moderate); D64.9 Anemia, unspecified; I25.10 Atherosclerotic heart disease of native coronary artery without angina pectoris; E11.9 Type 2 diabetes mellitus without complications; E78.5 Hyperlipidemia, unspecified; Z95.5 Presence of coronary angioplasty implant and graft; Z86.73 Personal history of transient ischemic attack (TIA), and cerebral infarction without residual deficits; Z89.511 Acquired absence of right leg below knee; Z79.01 Long term (current) use of anticoagulants
CPT/HCPCS: 82947-QW; J0878; J3430; J3475; P9017; P9047